=== PATIENT | female | born 1965 | race Two or more races ===

== ENCOUNTER 2018-06-03 08:16 | Inpatient (IN) | payer BC, OTHER ==
[~2018-06-03] VITALS: Ht 149.9 cm; Wt 83.0 kg
[~2018-06-03 08:16] MED LIST: AMBIEN5 MG ORAL; CEFEPIME-D1 GM/50 ML IVPB; CLINDAMYCIN HC300 MG ORAL; DUONEB 0.5-3(2.53 ML HHN; GLIPIZIDE5 MG ORAL; HEPARIN SO5000 UNIT2 SUBQ; IBUPROFEN600 MG ORAL; LEVEMIR FL100 UNIT/1 SUBQ; METFORMIN HCL500 M1 ORAL; MIRALAX17 G2 ORAL; MYLANTA30 M1 ORAL; NITROGLYCERIN0.4 MG SL; NOVOLOG100 UNITS1 SUBQ; NS 1000ML IV; PROMETHAZINE-C118 M1 ORAL; RESTORIL15 MG ORAL; SOLU-MEDRO40 MG/1 M1 IV; TRAMADOL HCL50 MG ORAL; TYLENOL EXTRA500 MG ORAL; VANCOMYCIN1 GM/2502 IVPB; VICODIN 5-5001 EACH ORAL; ZANTAC150 MG ORAL; ZOFRAN 4 MG4 MG/2 ML IV
[2018-06-03] MEDS ORDERED: NKM (08:40)
[2018-06-03 08:45] VITALS: BP 152/58
[2018-06-03] MEDS ORDERED: Insulin Human Regular 100units/ml 3ml IV ONE ×2 (08:45→12:30)
[2018-06-03 08:54] LABS: HEMATOCRIT 35.3 % (37.0-47.0); HEMOGLOBIN 11.2 G/DL (12.0-16.0); MEAN CORPUSCULAR VOLUME 92 FL (80-99); PLATELET COUNT 208 K/UL (150-450); RED BLOOD COUNT 3.84 M/UL (4.20-5.40); RED CELL DISTRIBUTION WIDTH 12.7 % (11.6-14.8); WHITE BLOOD COUNT 8.7 K/UL (4.8-10.8)
[2018-06-03 09:02] LABS: APPEARANCE,URINE SLIGHTLY CLOUDY; BILIRUBIN, URINE NEGATIVE (NEGATIVE); COLOR,URINE PALE YELLOW; GLUCOSE, URINE (UA) 4+ (NEGATIVE); KETONES,URINE NEGATIVE (NEGATIVE); LEUKOCYTE ESTERASE ,URINE 1+ (NEGATIVE); NITRITE,URINE NEGATIVE (NEGATIVE); PH,URINE 5 (4.5-8.0); PROTEIN,URINE 3+ (NEGATIVE); UROBILINOGEN,URINE NORMAL MG/DL (0.0-1.0)
[2018-06-03 10:02] LABS: ANION GAP 20 mmol/L (5-15); BLOOD UREA NITROGEN 17 mg/dL (7-18); CALCIUM 8.7 MG/DL (8.5-10.1); CARBON DIOXIDE 13 MMOL/L (21-32); CHLORIDE 91 MMOL/L (98-107); CREATININE 1.6 MG/DL (0.55-1.30); SODIUM 124 MMOL/L (136-145)
[2018-06-03 10:04] LABS: ALANINE AMINOTRANSFERASE 24 U/L (12-78); ALBUMIN 2.6 G/DL (3.4-5.0); ALBUMIN/GLOBULIN RATIO 0.5 (1.0-2.7); ALKALINE PHOSPHATASE 110 U/L (46-116); ASPARTATE AMINO TRANSFERASE 19 U/L (15-37); BILIRUBIN,TOTAL 0.2 MG/DL (0.2-1.0)
--- NOTE | 2018-06-03 10:27 | Emergency Room Report ---
History of Present Illness General Chief Complaint: Dyspnea/Respdistress Source: Patient Present Illness HPI This patient has about two days malaise, nausea, mild loose bm, mild diffuse abd cramping, feels dehydrated, thirsty, frequency. She is compliant with Insulin 40 Lantus in am and 15 tid with meals. However she has not checked accucheck in > one month due to losing machine. There is no fever, no trauma. No vomiting, no dysuria. No cp. Allergies: Coded Allergies: No Known Allergies (Unverified , 05/27/13) Nursing Documentation-[facility] Past Medical History: No History, Except For Hx Cardiac Problems: No Hx Asthma: No Hx Diabetes: Yes Hx Cancer: No Hx Gastrointestinal Problems: No Hx Dialysis: No History Of Psychiatric Problem: No Hx Neurological Problems: No Hx Cerebrovascular Accident: No Hx Seizures: No Review of Systems Constitutional: Reports: no symptoms, see HPI Eye: Reports: no symptoms ENT: Reports: see HPI, other - dry mouth Respiratory: Reports: no symptoms Cardiovascular: Reports: no symptoms Gastrointestinal: Reports: see HPI, abdominal pain, nausea Genitourinary: Reports: frequency Musculoskeletal: Reports: no symptoms Skin: Reports: no symptoms Psychiatric: Reports: no symptoms Neurological: Reports: no symptoms Endocrine: Reports: see HPI, increased thirst, increased urine Hematologic/Lymphatic: Reports: no symptoms Allergic: Reports: no symptoms Physical Exam Vital Signs Date Time Temp Pulse Resp B/P (MAP) Pulse Ox O2 Delivery O2 Flow Rate FiO2 06/03/18 08:36 99.2 149 24 121/67 95 Room Air 99.1 Sp02 EP Interpretation: reviewed, normal General Appearance: normal inspection, well appearing, no apparent distress, alert, GCS 15, non-toxic Head: normocephalic, atraumatic Eyes: bilateral eye normal inspection, bilateral eye PERRL, bilateral eye EOMI ENT: normal ENT inspection, hearing grossly normal, normal pharynx, no angioedema, normal voice, moist mucus membranes Neck: normal inspection, full range of motion, supple, no meningismus, no bony tend Respiratory: normal inspection, lungs clear, normal breath sounds, no rhonchi, no respiratory distress, no retraction, no accessory muscle use, no wheezing, other - tachypneic Cardiovascular #1: normal inspection, regular rate, rhythm, no edema Gastrointestinal: normal inspection, normal bowel sounds, non tender, soft, no mass, non-distended Musculoskeletal: gait/station normal, normal range of motion Neurologic: normal inspection, alert, oriented x3, responsive, motor strength/ tone normal Psychiatric: normal inspection, judgement/insight normal, memory normal Suicide Risk Assessment: Suicidal Ideation: No Had intent to initiate attempt: No Pt's plan for suicide attempt: No Has means to complete attempt: No Skin: normal inspection, normal color, no rash, warm/dry Medical Decision Making Diagnostic Impression: Primary Impression: Hyperglycemia Additional Impression: Diabetes ER Course initial evaluation clearly hyperglycemic, dry mouth, tachpneic. 10 am re-evaluation: pt. did not want to be admitted. she is hyperglycemic but negative ketones. agreed to stay in ed for a few hours. will continue to give IV fluids aggressively and repeat insulin as long as patient is here. advised to see pmd estuardo. EKG Diagnostic Results EKG Time: 08:27 Rate: tachycardiac ST Segments: no acute changes Other Impression sinus tachy, no acute ischemia, normal intervals Rhythm Strip Diag. Results Rhythm Strip Time: 10:21 EP Interpretation: yes Rate: 111 Rhythm: NSR Other Impression sinus tachy 111 Reevaluation Time: 10:26 tachypneic 20, wants to go Last Vital Signs Date Time Temp Pulse Resp B/P (MAP) Pulse Ox O2 Delivery O2 Flow Rate FiO2 06/03/18 08:45 127 23 Room Air 06/03/18 08:45 99.3 152/58 100 99.3 Status: improved Disposition: HOME, SELF-CARE Condition: Improved Referrals: NOT CHOSEN IPA/MD,REFERRING (PCP) Patient Instructions: Dehydration, Adult, [id number], Hyperglycemia, Easy-to- Read Varghese Kwan M.D. Jun 03, 2018 10:27
[2018-06-03 10:30] VITALS: BP 131/71
[2018-06-03] MEDS ORDERED: Mylanta II UD 30ml ORAL PRN (13:45)
[2018-06-03] MEDS ORDERED: Ketorolac 30mg Inj IV PRN (13:45)
[2018-06-03] MEDS ORDERED: Morphine Sulfate 2mg/ml Inj(IV/IM USE ONLY) IVP PRN (13:45)
[2018-06-03] MEDS ORDERED: Albuterol/Ipratropium 3ml neb HHN PRN (13:45)
[2018-06-03] MEDS ORDERED: Nitroglycerin Subl 0.4mg tab SL PRN (13:45)
[2018-06-03] MEDS ORDERED: Miralax 17gm pkt ORAL PRN (13:45)
[2018-06-03 14:02] VITALS: BP 135/57
[2018-06-03] MEDS ORDERED: Zolpidem 5mg tab ORAL PRN (14:30)
--- NOTE | 2018-06-03 14:59 | Consultation ---
History of Present Illness General Date patient seen: Jun 03, 2018 Chief Complaint: Dyspnea/Respdistress Reason for Consultation: Abdominal cramps and loose stool r/o infection Present Illness HPI Ms Ramos is a 53 yo female with PMHx of DM who presented with hyperglycemia, increased thirst and frequency and abdominal crapts. She is afebrile with no leukocytopsis. She has been on insulin but not checking her blood sugars for the last month. She says that she has has loose watery stool for about 3 days. ( 3 per day). Had one this morning but none since. No sick contact or new foods. BM not bloody. She has had abdominal cramps but no overt pain. She also reports some chill and maybe fever but did not check temps at home. She denies Dysuria, SOB, CP, Vomiting and Abdominal pain. PMHx/PSHx DM SocHx Former smoker FamHx Not contributory Allergies: Coded Allergies: No Known Allergies (Unverified , 05/27/13) Medication History Scheduled Cefepime Hcl/D5w (Cefepime-Dextrose 1 Gm/50 Ml), 1 GM IVPB EVERY 12 HOURS, ( Reported) Heparin Sod (Porcine) (Heparin Sodium*), 5,000 UNITS SUBQ EVERY 12 HOURS, ( Reported) Ibuprofen* (Motrin*), 600 MG ORAL THREE TIMES A DAY, (Reported) Insulin Aspart (Novolog Flexpen), SUBQ AC+HS, (Reported) Insulin Aspart (Novolog Flexpen), 10 UNITS SUBQ TIAC, (Reported) Insulin Detemir (Levemir Flexpen), 20 UNITS SUBQ HS, (Reported) Ipratropium/Albuterol Sulfate (DuoNeb 0.5-3(2.5)mg/3ml), 3 ML HHN TID, (Reported ) Methylprednisolone Sod Succ/Pf (Solu-Medrol 40 Mg Vial), 40 MG IV DAILY, ( Reported) No Known Medications* (NKM - No Known Medications*), 0 ., (Reported) Ranitidine Hcl* (Zantac*), 150 MG ORAL BEDTIME, (Reported) Vancomycin Hcl/D5w (Vancomycin-D5w 1 G/250 Ml), 1.25 GM IVPB Q12HR, (Reported) [Ns 1000ML], 80 ML IV Q1HR, (Reported) Scheduled PRN Acetaminophen* (Tylenol Extra Strength*), 650 MG ORAL Q4HR PRN for Mild Pain/ Temp > 100.5, (Reported) Al Hydroxide/mg Hydroxide (Mag-Al Liquid), 30 ML ORAL Q6HR PRN for INDIGESTION, (Reported) Codeine/Promethazine Hcl* (Promethazine-Codeine Syrup*), 5 ML ORAL Q6H PRN for For Cough, (Reported) Ipratropium/Albuterol Sulfate (DuoNeb 0.5-3(2.5)mg/3ml), 3 ML HHN Q4HR PRN for Shortness of Breath, (Reported) Ondansetron* (Zofran*), 4 MG IV Q6H PRN for Nausea & Vomiting, (Reported) Polyethylene Glycol 3350* (Miralax*), 17 GM ORAL DAILY PRN for Constipation, ( Reported) Temazepam* (Restoril*), 15 MG ORAL BEDTIME PRN for Insomnia, (Reported) Tramadol Hcl* (Ultram*), 50 MG ORAL Q8HR PRN for For Pain Zolpidem Tartrate* (Ambien*), 5 MG ORAL BEDTIME PRN for Insomnia, (Reported) Miscellaneous Medications Nitroglycerin (Nitroglycerin), 0.4 MG SL, (Reported) Patient History Healthcare decision maker Resuscitation status Full Code Advanced Directive on File Review of Systems All Other Systems: negative except mentioned in HPI Physical Exam Last 24 Hour Vital Signs Date Time Temp Pulse Resp B/P (MAP) Pulse Ox O2 Delivery O2 Flow Rate FiO2 06/03/18 14:04 Room Air 06/03/18 14:02 97.9 113 20 135/57 (83) 98 97.9 06/03/18 13:28 98.4 106 20 115/67 100 Room Air 98.3 06/03/18 10:30 98.3 106 20 131/71 100 Room Air 98.3 06/03/18 08:45 127 23 Room Air 06/03/18 08:45 99.3 127 23 152/58 100 Room Air 99.3 06/03/18 08:36 99.2 149 24 121/67 95 Room Air 99.1 Laboratory Tests Test 06/03/18 08:46 06/03/18 08:54 White Blood Count 8.7 K/UL (4.8-10.8) Red Blood Count 3.84 M/UL (4.20-5.40) L Hemoglobin 11.2 G/DL (12.0-16.0) L Hematocrit 35.3 % (37.0-47.0) L Mean Corpuscular Volume 92 FL (80-99) Mean Corpuscular Hemoglobin 29.1 PG (27.0-31.0) Mean Corpuscular Hemoglobin Concent 31.8 G/DL (32.0-36.0) L Red Cell Distribution Width 12.7 % (11.6-14.8) Platelet Count 208 K/UL (150-450) Mean Platelet Volume 7.8 FL (6.5-10.1) Neutrophils (%) (Auto) % (45.0-75.0) Lymphocytes (%) (Auto) % (20.0-45.0) Monocytes (%) (Auto) % (1.0-10.0) Eosinophils (%) (Auto) % (0.0-3.0) Basophils (%) (Auto) % (0.0-2.0) Differential Total Cells Counted 100 Neutrophils % (Manual) 79 % (45-75) H Lymphocytes % (Manual) 5 % (20-45) L Monocytes % (Manual) 5 % (1-10) Eosinophils % (Manual) 0 % (0-3) Basophils % (Manual) 0 % (0-2) Band Neutrophils 11 % (0-8) H Platelet Estimate Adequate Platelet Morphology Normal Red Blood Cell Morphology Normal Sodium Level 124 MMOL/L (136-145) L Potassium Level 4.0 MMOL/L (3.5-5.1) Chloride Level 91 MMOL/L (98-107) L Carbon Dioxide Level 13 MMOL/L (21-32) L Anion Gap 20 mmol/L (5-15) H Blood Urea Nitrogen 17 mg/dL (7-18) Creatinine 1.6 MG/DL (0.55-1.30) H Estimat Glomerular Filtration Rate 34.0 mL/min (>60) Glucose Level 867 MG/DL (74-106) *H Calcium Level 8.7 MG/DL (8.5-10.1) Magnesium Level 1.6 MG/DL (1.8-2.4) L Total Bilirubin 0.2 MG/DL (0.2-1.0) Aspartate Amino Transf (AST/SGOT) 19 U/L (15-37) Alanine Aminotransferase (ALT/SGPT) 24 U/L (12-78) Alkaline Phosphatase 110 U/L (46-116) Total Protein 7.6 G/DL (6.4-8.2) Albumin 2.6 G/DL (3.4-5.0) L Globulin 5.0 g/dL Albumin/Globulin Ratio 0.5 (1.0-2.7) L Acetone Level Negative (NEGATIVE) Urine Color Pale yellow Urine Appearance Slightly cloudy Urine pH 5 (4.5-8.0) Urine Specific [place] 1.005 (1.005-1.035) Urine Protein 3+ (NEGATIVE) H Urine Glucose (UA) 4+ (NEGATIVE) H Urine Ketones Negative (NEGATIVE) Urine Occult Blood 2+ (NEGATIVE) H Urine Nitrite Negative (NEGATIVE) Urine Bilirubin Negative (NEGATIVE) Urine Urobilinogen Normal MG/DL (0.0-1.0) Urine Leukocyte Esterase 1+ (NEGATIVE) H Urine RBC 5-10 /HPF (0 - 2) H Urine WBC 5-10 /HPF (0 - 2) H Urine Squamous Epithelial Cells Few /LPF (NONE/OCC) Urine Bacteria Few /HPF (NONE) Urine Yeast Moderate /HPF (NONE) H Height (Feet): 4 Height (Inches): 11.00 Weight (Pounds): 189 Medications Current Medications Medications (Trade) Dose Ordered Sig/Juan Route PRN Reason Start Time Stop Time Status Last Admin Dose Admin Acetaminophen (Tylenol) 650 mg Q4H PRN ORAL fever 06/03/18 13:45 07/03/18 13:44 Al Hydroxide/Mg Hydroxide (Mylanta II) 30 ml Q6H PRN ORAL dyspepsia 06/03/18 13:45 07/03/18 13:44 Albuterol/ Ipratropium (Albuterol/ Ipratropium) 3 ml EVERY 4 HOURS PRN HHN Shortness of Breath 06/03/18 13:45 06/08/18 13:44 Clonidine HCl (Catapres Tab) 0.1 mg EVERY 4 HOURS PRN ORAL sbp more than 160 06/03/18 13:45 07/03/18 13:44 Dextrose (Dextrose 50%) 25 ml STAT PRN IV Hypoglycemia 06/03/18 13:45 07/03/18 13:44 Dextrose (Dextrose 50%) 50 ml STAT PRN IV Hypoglycemia 06/03/18 13:45 07/03/18 13:44 Heparin Sodium (Porcine) (Heparin 5000 units/ml) 5,000 units EVERY 12 HOURS SUBQ 06/03/18 21:00 07/03/18 20:59 Insulin Aspart (NovoLOG) BEFORE MEALS AND HS SUBQ 06/03/18 16:30 07/03/18 16:29 Ketorolac Tromethamine (Toradol 30mg) 30 mg EVERY 6 HOURS PRN IV moderate pain 4-6 06/03/18 13:45 06/08/18 13:44 Morphine Sulfate (Morphine Sulfate) 2 mg EVERY 4 HOURS PRN IVP severe pain 7-10 06/03/18 13:45 06/10/18 13:44 Nitroglycerin (Ntg) 0.4 mg Q5M X 3 DOSES PRN SL Prn Chest Pain 06/03/18 13:45 07/03/18 13:44 Ondansetron HCl (Zofran) 4 mg Q6H PRN IVP Nausea & Vomiting 06/03/18 13:45 07/03/18 13:44 Polyethylene Glycol (Miralax) 17 gm HSPRN PRN ORAL Constipation 06/03/18 13:45 07/03/18 13:44 Sodium Chloride 1,000 ml @ 100 mls/hr Q10H IVLG 06/03/18 14:05 07/03/18 14:04 06/03/18 14:39 Temazepam (Restoril) 15 mg HSPRN PRN ORAL Insomnia 06/03/18 13:45 06/10/18 13:44 Zolpidem Tartrate (Ambien) 5 mg HSPRN PRN ORAL Insomnia 06/03/18 14:30 06/10/18 14:29 Objective Narrative Gen: NAD, well appearing, alert HEENT: NCAT, MMM, EOMI, PERRL, No Oral lesion, no scleral icterus NECK: full range of motion, supple, no meningismus, No LAD, No JVD LUNGS: CTAB, No W/C, No Accessory muscle use CARDS: RRR, S1, S2, No M/R/G, ABD: Soft, NT, ND, No R/G, + BS, No HSM, No Masses : Deferred Ext: C/C/E, Pulses 2+ B/L (DP, Rad): NEURO: A/O x 4, Strength and Sensation Grossly intact PSYCH: mood/affect normal SKIN: warm/dry, No rashes, Assessment/Plan Assessment/Plan Ms Ramos is a 53 yo female with PMHx of DM who presented with hyperglycemia, increased thirst and frequency and abdominal cramps. # Loose stool and Abdominal Cramps - Likely related to hyperglycemia or vial infection. - No sign of bacterial etiology at this time - Afebrile, no leukocytosis, UA neg - If develops fever or leukocytosis will do further work up - Monitor off abx #DM PLAN - Monitor off antibiotics - BS control - Monitor CBC and Temps Thank you for consulting us for the care of this patient. We will continue to follow with you. Roberth Boucher M.D. Jun 03, 2018 14:59
--- NOTE | 2018-06-03 15:47 | Cardiology Report ---
APPROVED REPORT EKG Measurement Heart [id number] Sinus tachycardia Biatrial enlargement Abnormal ECG
[2018-06-03] MEDS ORDERED: NovoLOG Insulin Flexpen SUBQ SCH (16:30)
--- NOTE | 2018-06-03 16:41 | Consultation ---
History of Present Illness General Date patient seen: Jun 03, 2018 Chief Complaint: Dyspnea/Respdistress Reason for Consultation: Abdominal cramps and loose stool r/o infection Present Illness HPI 53 year old female with hx of diabetes presented to ER with CC of two days of malaise, nausea, mild loose bm, mild diffuse abd cramping, feels dehydrated, thirsty, frequency. She has not checked accucheck in > one month due to losing machine. There is no fever, no trauma. No vomiting, no dysuria. No cp. she was found to have BS more than 180 and admitted to telemetry for further management. Allergies: Coded Allergies: No Known Allergies (Unverified , 05/27/13) Medication History Scheduled Cefepime Hcl/D5w (Cefepime-Dextrose 1 Gm/50 Ml), 1 GM IVPB EVERY 12 HOURS, ( Reported) Heparin Sod (Porcine) (Heparin Sodium*), 5,000 UNITS SUBQ EVERY 12 HOURS, ( Reported) Ibuprofen* (Motrin*), 600 MG ORAL THREE TIMES A DAY, (Reported) Insulin Aspart (Novolog Flexpen), SUBQ AC+HS, (Reported) Insulin Aspart (Novolog Flexpen), 10 UNITS SUBQ TIAC, (Reported) Insulin Detemir (Levemir Flexpen), 20 UNITS SUBQ HS, (Reported) Ipratropium/Albuterol Sulfate (DuoNeb 0.5-3(2.5)mg/3ml), 3 ML HHN TID, (Reported ) Methylprednisolone Sod Succ/Pf (Solu-Medrol 40 Mg Vial), 40 MG IV DAILY, ( Reported) No Known Medications* (NKM - No Known Medications*), 0 ., (Reported) Ranitidine Hcl* (Zantac*), 150 MG ORAL BEDTIME, (Reported) Vancomycin Hcl/D5w (Vancomycin-D5w 1 G/250 Ml), 1.25 GM IVPB Q12HR, (Reported) [Ns 1000ML], 80 ML IV Q1HR, (Reported) Scheduled PRN Acetaminophen* (Tylenol Extra Strength*), 650 MG ORAL Q4HR PRN for Mild Pain/ Temp > 100.5, (Reported) Al Hydroxide/mg Hydroxide (Mag-Al Liquid), 30 ML ORAL Q6HR PRN for INDIGESTION, (Reported) Codeine/Promethazine Hcl* (Promethazine-Codeine Syrup*), 5 ML ORAL Q6H PRN for For Cough, (Reported) Ipratropium/Albuterol Sulfate (DuoNeb 0.5-3(2.5)mg/3ml), 3 ML HHN Q4HR PRN for Shortness of Breath, (Reported) Ondansetron* (Zofran*), 4 MG IV Q6H PRN for Nausea & Vomiting, (Reported) Polyethylene Glycol 3350* (Miralax*), 17 GM ORAL DAILY PRN for Constipation, ( Reported) Temazepam* (Restoril*), 15 MG ORAL BEDTIME PRN for Insomnia, (Reported) Tramadol Hcl* (Ultram*), 50 MG ORAL Q8HR PRN for For Pain Zolpidem Tartrate* (Ambien*), 5 MG ORAL BEDTIME PRN for Insomnia, (Reported) Miscellaneous Medications Nitroglycerin (Nitroglycerin), 0.4 MG SL, (Reported) Patient History Healthcare decision maker Resuscitation status Full Code Advanced Directive on File Past Medical/Surgical History Past Medical/Surgical History: (1) Diabetes Review of Systems All Other Systems: negative except mentioned in HPI Physical Exam General Appearance: WD/WN HEENT: normocephalic Neck: non-tender, normal alignment Respiratory/Chest: chest wall non-tender, lungs clear Breasts: no masses Cardiovascular/Chest: normal peripheral pulses Abdomen: normal bowel sounds Genitourinary/Rectal: normal genital exam Skin Exam: normal pigmentation 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 Last 24 Hour Vital Signs Date Time Temp Pulse Resp B/P (MAP) Pulse Ox O2 Delivery O2 Flow Rate FiO2 06/03/18 15:50 98.7 06/03/18 14:51 100.6 06/03/18 14:04 Room Air 06/03/18 14:02 97.9 113 20 135/57 (83) 98 97.9 06/03/18 13:28 98.4 106 20 115/67 100 Room Air 98.3 06/03/18 10:30 98.3 106 20 131/71 100 Room Air 98.3 06/03/18 08:45 127 23 Room Air 06/03/18 08:45 99.3 127 23 152/58 100 Room Air 99.3 06/03/18 08:36 99.2 149 24 121/67 95 Room Air 99.1 Laboratory Tests Test 06/03/18 08:46 06/03/18 08:54 White Blood Count 8.7 K/UL (4.8-10.8) Red Blood Count 3.84 M/UL (4.20-5.40) L Hemoglobin 11.2 G/DL (12.0-16.0) L Hematocrit 35.3 % (37.0-47.0) L Mean Corpuscular Volume 92 FL (80-99) Mean Corpuscular Hemoglobin 29.1 PG (27.0-31.0) Mean Corpuscular Hemoglobin Concent 31.8 G/DL (32.0-36.0) L Red Cell Distribution Width 12.7 % (11.6-14.8) Platelet Count 208 K/UL (150-450) Mean Platelet Volume 7.8 FL (6.5-10.1) Neutrophils (%) (Auto) % (45.0-75.0) Lymphocytes (%) (Auto) % (20.0-45.0) Monocytes (%) (Auto) % (1.0-10.0) Eosinophils (%) (Auto) % (0.0-3.0) Basophils (%) (Auto) % (0.0-2.0) Differential Total Cells Counted 100 Neutrophils % (Manual) 79 % (45-75) H Lymphocytes % (Manual) 5 % (20-45) L Monocytes % (Manual) 5 % (1-10) Eosinophils % (Manual) 0 % (0-3) Basophils % (Manual) 0 % (0-2) Band Neutrophils 11 % (0-8) H Platelet Estimate Adequate Platelet Morphology Normal Red Blood Cell Morphology Normal Sodium Level 124 MMOL/L (136-145) L Potassium Level 4.0 MMOL/L (3.5-5.1) Chloride Level 91 MMOL/L (98-107) L Carbon Dioxide Level 13 MMOL/L (21-32) L Anion Gap 20 mmol/L (5-15) H Blood Urea Nitrogen 17 mg/dL (7-18) Creatinine 1.6 MG/DL (0.55-1.30) H Estimat Glomerular Filtration Rate 34.0 mL/min (>60) Glucose Level 867 MG/DL (74-106) *H Calcium Level 8.7 MG/DL (8.5-10.1) Magnesium Level 1.6 MG/DL (1.8-2.4) L Total Bilirubin 0.2 MG/DL (0.2-1.0) Aspartate Amino Transf (AST/SGOT) 19 U/L (15-37) Alanine Aminotransferase (ALT/SGPT) 24 U/L (12-78) Alkaline Phosphatase 110 U/L (46-116) Total Protein 7.6 G/DL (6.4-8.2) Albumin 2.6 G/DL (3.4-5.0) L Globulin 5.0 g/dL Albumin/Globulin Ratio 0.5 (1.0-2.7) L Acetone Level Negative (NEGATIVE) Urine Color Pale yellow Urine Appearance Slightly cloudy Urine pH 5 (4.5-8.0) Urine Specific [place] 1.005 (1.005-1.035) Urine Protein 3+ (NEGATIVE) H Urine Glucose (UA) 4+ (NEGATIVE) H Urine Ketones Negative (NEGATIVE) Urine Occult Blood 2+ (NEGATIVE) H Urine Nitrite Negative (NEGATIVE) Urine Bilirubin Negative (NEGATIVE) Urine Urobilinogen Normal MG/DL (0.0-1.0) Urine Leukocyte Esterase 1+ (NEGATIVE) H Urine RBC 5-10 /HPF (0 - 2) H Urine WBC 5-10 /HPF (0 - 2) H Urine Squamous Epithelial Cells Few /LPF (NONE/OCC) Urine Bacteria Few /HPF (NONE) Urine Yeast Moderate /HPF (NONE) H Height (Feet): 4 Height (Inches): 11.00 Weight (Pounds): 189 Medications Current Medications Medications (Trade) Dose Ordered Sig/Juan Route PRN Reason Start Time Stop Time Status Last Admin Dose Admin Acetaminophen (Tylenol) 650 mg Q4H PRN ORAL fever 06/03/18 13:45 07/03/18 13:44 06/03/18 14:51 Al Hydroxide/Mg Hydroxide (Mylanta II) 30 ml Q6H PRN ORAL dyspepsia 06/03/18 13:45 07/03/18 13:44 Albuterol/ Ipratropium (Albuterol/ Ipratropium) 3 ml EVERY 4 HOURS PRN HHN Shortness of Breath 06/03/18 13:45 06/08/18 13:44 Clonidine HCl (Catapres Tab) 0.1 mg EVERY 4 HOURS PRN ORAL sbp more than 160 06/03/18 13:45 07/03/18 13:44 Dextrose (Dextrose 50%) 25 ml STAT PRN IV Hypoglycemia 06/03/18 13:45 07/03/18 13:44 Dextrose (Dextrose 50%) 50 ml STAT PRN IV Hypoglycemia 06/03/18 13:45 07/03/18 13:44 Heparin Sodium (Porcine) (Heparin 5000 units/ml) 5,000 units EVERY 12 HOURS SUBQ 06/03/18 21:00 07/03/18 20:59 Insulin Aspart (NovoLOG) BEFORE MEALS AND HS SUBQ 06/03/18 16:30 07/03/18 16:29 Ketorolac Tromethamine (Toradol 30mg) 30 mg EVERY 6 HOURS PRN IV moderate pain 4-6 06/03/18 13:45 06/08/18 13:44 Morphine Sulfate (Morphine Sulfate) 2 mg EVERY 4 HOURS PRN IVP severe pain 7-10 06/03/18 13:45 06/10/18 13:44 Nitroglycerin (Ntg) 0.4 mg Q5M X 3 DOSES PRN SL Prn Chest Pain 06/03/18 13:45 07/03/18 13:44 Ondansetron HCl (Zofran) 4 mg Q6H PRN IVP Nausea & Vomiting 06/03/18 13:45 07/03/18 13:44 Polyethylene Glycol (Miralax) 17 gm HSPRN PRN ORAL Constipation 06/03/18 13:45 07/03/18 13:44 Sodium Chloride 1,000 ml @ 100 mls/hr Q10H IVLG 06/03/18 14:05 07/03/18 14:04 06/03/18 14:39 Zolpidem Tartrate (Ambien) 5 mg HSPRN PRN ORAL Insomnia 06/03/18 14:30 06/10/18 14:29 Assessment/Plan Problem List: (1) Hyperglycemia ICD Codes: R73.9 - Hyperglycemia, unspecified SNOMED: 01352582 (2) Diabetes ICD Codes: E11.9 - Type 2 diabetes mellitus without complications SNOMED: 78488625 Assessment/Plan iv fluids sliding scale check electrolytes dvr prophylaxis symptomatic treatment Barb Prasad MD Jun 03, 2018 16:41
[2018-06-03 20:00] VITALS: BP 117/52
[2018-06-03] MEDS: Heparin 5000 units/ml inj SUBQ SCH (20:45)
[2018-06-03] MEDS: Levemir Flexpen SUBQ SCH (20:45)
--- NOTE | 2018-06-03 20:45 | History and Physical Report ---
DATE OF ADMISSION: 06/03/2018 TIME SEEN: At 2 p.m. ATTENDING PHYSICIAN: Yg Bhakta D.O. CONSULTANTS: 1. Barb Prasad M.D. 2. Mejia Trinh M.D. CHIEF COMPLAINT: Fever, chills, weakness, diabetes, hyperglycemia. BRIEF HISTORY: This is a 53-year-old female, who lives at home with history of diabetes and apparently ran out of insurance about a month ago, stopped taking her medications. Two days ago, she had some fevers, chills, and weakness and came to [facility] today, was diagnosed with diabetes and hyperglycemia, and admitted to telemetry for further care. Currently, calm in bed, feeling better. No chest pain. No shortness of breath. No nausea, vomiting, or diarrhea. PAST MEDICAL HISTORY: Include diabetes. PAST SURGICAL HISTORY: . ALLERGIES: Denies. MEDICATIONS: Include heparin, insulin, zolpidem, morphine, polyethylene glycol, Zofran, nitroglycerin, ketorolac, insulin. SOCIAL HISTORY: Positive smoking. No alcohol. No intravenous drug abuse. FAMILY HISTORY: Noncontributory. PHYSICAL EXAMINATION: GENERAL: Calm in bed, oriented x3, in no acute distress. VITAL SIGNS: Temperature 97, pulse 113, respirations 20, blood pressure 135/57. CARDIOVASCULAR: No murmur. LUNGS: Distant and clear. ABDOMEN: Positive bowel sounds. Nontender. Nondistended. EXTREMITIES: No cyanosis or edema. NEUROLOGIC: Cranial nerves II through XII are grossly intact. Deep tendon reflexes 2+/4. Muscle strength 5/5. LABORATORY DATA: Laboratories at this time show hemoglobin 11.2, otherwise CBC is normal. BMP shows sodium 127, chloride 91, CO2 13, BUN and creatinine 17/1.6, glucose 867. Urine-tox is acetone negative. Urinalysis, 1+ leukocyte esterase. ASSESSMENT: Diabetes, hyperglycemia, UTI, tachycardia, renal insufficiency, anemia, hyponatremia. PLAN: Continue previous medications. Blood pressure, blood sugar, and pain control. Dietary followup. IV fluids. Antibiotics per Infectious Disease. CBC and BMP in the morning. Yg Bhakta D.O. DR: Eduard JOB#: [id number] CC:
[2018-06-03] MEDS: NovoLOG Insulin Flexpen SUBQ SCH (20:50)
[2018-06-04] VITALS: BP 131/72
[2018-06-04 04:00] VITALS: BP 125/73
[2018-06-04 05:21] LABS: BASOPHILS % (AUTO) 0.7 % (0.0-2.0); EOSINOPHILS % (AUTO) 0.4 % (0.0-3.0); HEMATOCRIT 28.3 % (37.0-47.0); HEMOGLOBIN 9.8 G/DL (12.0-16.0); LYMPHOCYTES % (AUTO) 11.5 % (20.0-45.0); MEAN CORPUSCULAR VOLUME 86 FL (80-99); MONOCYTES % (AUTO) 12.5 % (1.0-10.0); NEUTROPHILS % (AUTO) 74.9 % (45.0-75.0); PLATELET COUNT 176 K/UL (150-450); RED BLOOD COUNT 3.28 M/UL (4.20-5.40); WHITE BLOOD COUNT 6.9 K/UL (4.8-10.8)
[2018-06-04 05:47] LABS: ALANINE AMINOTRANSFERASE 25 U/L (12-78); ALBUMIN 2.1 G/DL (3.4-5.0); ALBUMIN/GLOBULIN RATIO 0.5 (1.0-2.7); ALKALINE PHOSPHATASE 104 U/L (46-116); ANION GAP 10 mmol/L (5-15); ASPARTATE AMINO TRANSFERASE 27 U/L (15-37); BILIRUBIN,TOTAL 0.1 MG/DL (0.2-1.0); BLOOD UREA NITROGEN 14 mg/dL (7-18); CALCIUM 7.9 MG/DL (8.5-10.1); CARBON DIOXIDE 20 MMOL/L (21-32); CHLORIDE 103 MMOL/L (98-107); CREATININE 0.7 MG/DL (0.55-1.30); HDL CHOLESTEROL 17 MG/DL (40-60); SODIUM 133 MMOL/L (136-145); TRIGLYCERIDES 494 MG/DL (30-150)
[2018-06-04] MEDS: NovoLOG Insulin Flexpen SUBQ SCH ×5 (06:01→21:46)
[2018-06-04 07:57] LABS: CHOLESTEROL 177 MG/DL (< 200)
[2018-06-04] MEDS: Heparin 5000 units/ml inj SUBQ SCH ×2 (08:14→21:45)
[2018-06-04] MEDS: Levemir Flexpen SUBQ SCH ×2 (08:15→21:45)
--- NOTE | 2018-06-04 08:29 | General Progress Note ---
Progress Note Progress Note [id number] full consult dictated Karma Painter MD Jun 04, 2018 08:29
[2018-06-04 08:50] VITALS: BP 121/74
[2018-06-04 10:12] LABS: APPEARANCE,URINE CLOUDY; BILIRUBIN, URINE NEGATIVE (NEGATIVE); COLOR,URINE PALE YELLOW; GLUCOSE, URINE (UA) 4+ (NEGATIVE); KETONES,URINE 1+ (NEGATIVE); LEUKOCYTE ESTERASE ,URINE 3+ (NEGATIVE); NITRITE,URINE POSITIVE (NEGATIVE); PH,URINE 6 (4.5-8.0); PROTEIN,URINE 3+ (NEGATIVE); UROBILINOGEN,URINE NORMAL MG/DL (0.0-1.0)
--- NOTE | 2018-06-04 10:21 | Infectious Diseases Prog Note ---
Assessment/Plan Assessment/Plan Assessment/Plan Ms Ramos is a 53 yo female with PMHx of DM who presented with hyperglycemia, increased thirst and frequency and abdominal cramps. # Loose stool and Abdominal Cramps - Likely related to hyperglycemia or viral infection. - r/o bacterial GE, cdiff, acute HIV, r/o bacteremia - no leukocytosis, UA mild pyuria, no UTI symptoms #Fever #DM/Mild DKA upon presentation PLAN -Bcx x2, stool cx, Cdiff, CXR - Monitor off antibiotics - BS control - Monitor CBC and Temps -HIV ab sc and VL Thank you for consulting us for the care of this patient. We will continue to follow with you. Subjective Allergies: Coded Allergies: No Known Allergies (Unverified , 05/27/13) Subjective Tm 101.1 no leukocytosis last diarrhea yesterday Objective Vital Signs Last 24 Hour Vital Signs Date Time Temp Pulse Resp B/P (MAP) Pulse Ox O2 Delivery O2 Flow Rate FiO2 06/04/18 08:50 100.0 105 20 121/74 (90) 98 100.0 06/04/18 07:31 99 06/04/18 07:12 Room Air 06/04/18 06:59 98.8 06/04/18 06:00 101.1 06/04/18 04:00 99 06/04/18 04:00 99.0 99 20 125/73 (90) 98 99.0 06/04/18 00:00 98.2 99 20 131/72 (91) 98 98.2 06/04/18 00:00 97 06/03/18 21:00 Room Air 06/03/18 20:00 98.5 99 20 117/52 (73) 98 98.5 06/03/18 20:00 98 06/03/18 19:55 102 18 Room Air 06/03/18 18:05 98.7 06/03/18 16:00 101 06/03/18 14:51 100.6 06/03/18 14:04 Room Air 06/03/18 14:02 97.9 113 20 135/57 (83) 98 97.9 06/03/18 13:28 98.4 106 20 115/67 100 Room Air 98.3 06/03/18 10:30 98.3 106 20 131/71 100 Room Air 98.3 Height (Feet): 4 Height (Inches): 11.00 Weight (Pounds): 189 Objective Gen: NAD, well appearing, alert HEENT: NCAT, MMM, EOMI, PERRL, No Oral lesion, no scleral icterus NECK: full range of motion, supple, no meningismus, No LAD, No JVD LUNGS: CTAB, No W/C, No Accessory muscle use CARDS: RRR, S1, S2, No M/R/G, ABD: Soft, NT, ND, No R/G, + BS, No HSM, No Masses : Deferred Ext: C/C/E, Pulses 2+ B/L (DP, Rad): NEURO: A/O x 4, Strength and Sensation Grossly intact PSYCH: mood/affect normal SKIN: warm/dry, No rashes, Laboratory Tests Test 06/04/18 04:50 06/04/18 09:00 White Blood Count 6.9 K/UL (4.8-10.8) Red Blood Count 3.28 M/UL (4.20-5.40) L Hemoglobin 9.8 G/DL (12.0-16.0) L Hematocrit 28.3 % (37.0-47.0) L Mean Corpuscular Volume 86 FL (80-99) Mean Corpuscular Hemoglobin 29.8 PG (27.0-31.0) Mean Corpuscular Hemoglobin Concent 34.4 G/DL (32.0-36.0) Red Cell Distribution Width 12.0 % (11.6-14.8) Platelet Count 176 K/UL (150-450) Mean Platelet Volume 8.7 FL (6.5-10.1) Neutrophils (%) (Auto) 74.9 % (45.0-75.0) Lymphocytes (%) (Auto) 11.5 % (20.0-45.0) L Monocytes (%) (Auto) 12.5 % (1.0-10.0) H Eosinophils (%) (Auto) 0.4 % (0.0-3.0) Basophils (%) (Auto) 0.7 % (0.0-2.0) Sodium Level 133 MMOL/L (136-145) L Potassium Level 4.0 MMOL/L (3.5-5.1) Chloride Level 103 MMOL/L (98-107) Carbon Dioxide Level 20 MMOL/L (21-32) L Anion Gap 10 mmol/L (5-15) Blood Urea Nitrogen 14 mg/dL (7-18) Creatinine 0.7 MG/DL (0.55-1.30) # Estimat Glomerular Filtration Rate > 60 mL/min (>60) Glucose Level 288 MG/DL (74-106) #H Hemoglobin A1c 13.4 % (4.3-6.0) H Calcium Level 7.9 MG/DL (8.5-10.1) L Total Bilirubin 0.1 MG/DL (0.2-1.0) L Aspartate Amino Transf (AST/SGOT) 27 U/L (15-37) Alanine Aminotransferase (ALT/SGPT) 25 U/L (12-78) Alkaline Phosphatase 104 U/L (46-116) Total Protein 6.4 G/DL (6.4-8.2) Albumin 2.1 G/DL (3.4-5.0) L Globulin 4.3 g/dL Albumin/Globulin Ratio 0.5 (1.0-2.7) L Triglycerides Level 494 MG/DL (30-150) H Cholesterol Level 177 MG/DL (< 200) LDL Cholesterol 82 mg/dL (<100) HDL Cholesterol 17 MG/DL (40-60) L Cholesterol/HDL Ratio 10.4 (3.3-4.4) H Thyroid Stimulating Hormone (TSH) 1.133 uiU/mL (0.358-3.740) Urine Color Pending Urine Appearance Pending Urine pH Pending Urine Specific [place] Pending Urine Protein Pending Urine Glucose (UA) Pending Urine Ketones Pending Urine Occult Blood Pending Urine Nitrite Pending Urine Bilirubin Pending Urine Urobilinogen Pending Urine Leukocyte Esterase Pending Urine RBC Pending Urine WBC Pending Urine Squamous Epithelial Cells Pending Urine Bacteria Pending Urine Eosinophils Pending Urine Random Creatinine Pending Urine Random Microalbumin Pending Urine Random Total Protein Pending Urine Random Sodium Pending Urine Creatinine Pending Urine Microalbumin/Creatinine Ratio Pending Current Medications Medications (Trade) Dose Ordered Sig/Juan Route PRN Reason Start Time Stop Time Status Last Admin Dose Admin Acetaminophen (Tylenol) 650 mg Q4H PRN ORAL fever 06/03/18 13:45 07/03/18 13:44 06/04/18 06:00 Al Hydroxide/Mg Hydroxide (Mylanta II) 30 ml Q6H PRN ORAL dyspepsia 06/03/18 13:45 07/03/18 13:44 Albuterol/ Ipratropium (Albuterol/ Ipratropium) 3 ml EVERY 4 HOURS PRN HHN Shortness of Breath 06/03/18 13:45 06/08/18 13:44 Clonidine HCl (Catapres Tab) 0.1 mg EVERY 4 HOURS PRN ORAL sbp more than 160 06/03/18 13:45 07/03/18 13:44 Dextrose (Dextrose 50%) 25 ml STAT PRN IV Hypoglycemia 06/03/18 18:30 07/03/18 18:29 Dextrose (Dextrose 50%) 50 ml STAT PRN IV Hypoglycemia 06/03/18 18:30 07/03/18 18:29 Heparin Sodium (Porcine) (Heparin 5000 units/ml) 5,000 units EVERY 12 HOURS SUBQ 06/03/18 21:00 07/03/18 20:59 06/04/18 08:14 Insulin Aspart (NovoLOG) BEFORE MEALS AND HS SUBQ 06/03/18 21:00 07/03/18 20:59 06/04/18 06:01 Insulin Detemir (Levemir) 20 units Q12H SUBQ 06/03/18 21:00 07/03/18 20:59 06/04/18 08:15 Ketorolac Tromethamine (Toradol 30mg) 30 mg EVERY 6 HOURS PRN IV moderate pain 4-6 06/03/18 13:45 06/08/18 13:44 06/03/18 17:29 Morphine Sulfate (Morphine Sulfate) 2 mg EVERY 4 HOURS PRN IVP severe pain 7-10 06/03/18 13:45 06/10/18 13:44 Nitroglycerin (Ntg) 0.4 mg Q5M X 3 DOSES PRN SL Prn Chest Pain 06/03/18 13:45 07/03/18 13:44 Ondansetron HCl (Zofran) 4 mg Q6H PRN IVP Nausea & Vomiting 06/03/18 13:45 07/03/18 13:44 Polyethylene Glycol (Miralax) 17 gm HSPRN PRN ORAL Constipation 06/03/18 13:45 07/03/18 13:44 Sodium Chloride 1,000 ml @ 100 mls/hr Q10H IVLG 06/03/18 14:05 07/03/18 14:04 06/04/18 10:07 Zolpidem Tartrate (Ambien) 5 mg HSPRN PRN ORAL Insomnia 06/03/18 14:30 06/10/18 14:29 06/03/18 20:44 Laura Anguiano M.D. Jun 04, 2018 10:21
[2018-06-04 12:30] VITALS: BP 133/68
--- NOTE | 2018-06-04 13:29 | Pulmonology Progress Note ---
Assessment/Plan Problems: (1) Hyperglycemia (2) Diabetes (3) Fever Assessment/Plan BS better check electrolytes lanza culture ID to see. Subjective ROS Limited/Unobtainable: Yes Constitutional: Reports: no symptoms Respiratory: Reports: no symptoms Allergies: Coded Allergies: No Known Allergies (Unverified , 05/27/13) Objective Last 24 Hour Vital Signs Date Time Temp Pulse Resp B/P (MAP) Pulse Ox O2 Delivery O2 Flow Rate FiO2 06/04/18 12:30 98.4 91 20 133/68 (89) 98 98.4 06/04/18 11:29 90 06/04/18 11:25 100.0 06/04/18 10:31 100.0 06/04/18 08:50 100.0 105 20 121/74 (90) 98 100.0 06/04/18 08:10 91 18 Room Air 06/04/18 07:31 99 06/04/18 07:12 Room Air 06/04/18 06:59 98.8 06/04/18 06:00 101.1 06/04/18 04:00 99 06/04/18 04:00 99.0 99 20 125/73 (90) 98 99.0 06/04/18 00:00 98.2 99 20 131/72 (91) 98 98.2 06/04/18 00:00 97 06/03/18 21:00 Room Air 06/03/18 20:00 98.5 99 20 117/52 (73) 98 98.5 06/03/18 20:00 98 06/03/18 19:55 102 18 Room Air 06/03/18 18:05 98.7 06/03/18 16:00 101 06/03/18 14:51 100.6 06/03/18 14:04 Room Air 06/03/18 14:02 97.9 113 20 135/57 (83) 98 97.9 06/03/18 13:28 98.4 106 20 115/67 100 Room Air 98.3 Intake and Output 06/03/18 06/04/18 19:00 07:00 Intake Total 2000 ml 1193 ml Balance 2000 ml 1193 ml Intake Oral 1000 ml IV Total 1000 ml 1193 ml # Voids 3 General Appearance: WD/WN HEENT: normocephalic, atraumatic Respiratory/Chest: chest wall non-tender, lungs clear Breasts: no masses Cardiovascular: normal peripheral pulses Abdomen: normal bowel sounds, soft, non tender Genitourinary: normal external genitalia Extremities: no clubbing Skin: no rash Microbiology Date/Time Source Procedure Growth Status 06/04/18 00:00 Stool Ordered 06/03/18 08:54 Urine,Clean Catch Urine Culture - Preliminary Gram Negative Bacillus 1 Resulted Laboratory Tests 06/04/18 04:50: White Blood Count 6.9, Red Blood Count 3.28L, Hemoglobin 9.8L, Hematocrit 28.3L , Mean Corpuscular Volume 86, Mean Corpuscular Hemoglobin 29.8, Mean Corpuscular Hemoglobin Concent 34.4, Red Cell Distribution Width 12.0, Platelet Count 176, Mean Platelet Volume 8.7, Neutrophils (%) (Auto) 74.9, Lymphocytes (% ) (Auto) 11.5L, Monocytes (%) (Auto) 12.5H, Eosinophils (%) (Auto) 0.4, Basophils (%) (Auto) 0.7, Sodium Level 133L, Potassium Level 4.0, Chloride Level 103, Carbon Dioxide Level 20L, Anion Gap 10, Blood Urea Nitrogen 14, Creatinine 0.7#, Estimat Glomerular Filtration Rate > 60, Glucose Level 288#H, Hemoglobin A1c 13.4H, Calcium Level 7.9L, Total Bilirubin 0.1L, Aspartate Amino Transf (AST/SGOT) 27, Alanine Aminotransferase (ALT/SGPT) 25, Alkaline Phosphatase 104, Total Protein 6.4, Albumin 2.1L, Globulin 4.3, Albumin/ Globulin Ratio 0.5L, Triglycerides Level 494H, Cholesterol Level 177, LDL Cholesterol 82, HDL Cholesterol 17L, Cholesterol/HDL Ratio 10.4H, Thyroid Stimulating Hormone (TSH) 1.133 06/04/18 09:00: Urine Color Pale yellow, Urine Appearance Cloudy, Urine pH 6, Urine Specific [place] 1.015, Urine Protein 3+H, Urine Glucose (UA) 4+H, Urine Ketones 1+H, Urine Occult Blood 2+H, Urine Nitrite PositiveH, Urine Bilirubin Negative, Urine Urobilinogen Normal, Urine Leukocyte Esterase 3+H, Urine RBC 5-10H, Urine WBC 10-15H, Urine Squamous Epithelial Cells ManyH, Urine Bacteria ManyH, Urine Eosinophils None seen, Urine Random Creatinine [Pending], Urine Random Microalbumin [Pending], Urine Random Total Protein 164H, Urine Random Sodium 39 , Urine Creatinine 157.9H, Urine Microalbumin/Creatinine Ratio [Pending] Current Medications Medications (Trade) Dose Ordered Sig/Juan Route PRN Reason Start Time Stop Time Status Last Admin Dose Admin Acetaminophen (Tylenol) 650 mg Q4H PRN ORAL Mild Pain/Temp > 100.5 06/04/18 10:30 07/03/18 10:29 06/04/18 10:31 Al Hydroxide/Mg Hydroxide (Mylanta II) 30 ml Q6H PRN ORAL dyspepsia 06/03/18 13:45 07/03/18 13:44 Albuterol/ Ipratropium (Albuterol/ Ipratropium) 3 ml EVERY 4 HOURS PRN HHN Shortness of Breath 06/03/18 13:45 06/08/18 13:44 Clonidine HCl (Catapres Tab) 0.1 mg EVERY 4 HOURS PRN ORAL sbp more than 160 06/03/18 13:45 07/03/18 13:44 Dextrose (Dextrose 50%) 25 ml STAT PRN IV Hypoglycemia 06/03/18 18:30 07/03/18 18:29 Dextrose (Dextrose 50%) 50 ml STAT PRN IV Hypoglycemia 06/03/18 18:30 07/03/18 18:29 Heparin Sodium (Porcine) (Heparin 5000 units/ml) 5,000 units EVERY 12 HOURS SUBQ 06/03/18 21:00 07/03/18 20:59 06/04/18 08:14 Insulin Aspart (NovoLOG) BEFORE MEALS AND HS SUBQ 06/03/18 21:00 07/03/18 20:59 06/04/18 11:20 Insulin Detemir (Levemir) 20 units Q12H SUBQ 06/03/18 21:00 07/03/18 20:59 06/04/18 08:15 Ketorolac Tromethamine (Toradol 30mg) 30 mg EVERY 6 HOURS PRN IV moderate pain 4-6 06/03/18 13:45 06/08/18 13:44 06/03/18 17:29 Morphine Sulfate (Morphine Sulfate) 2 mg EVERY 4 HOURS PRN IVP severe pain 7-10 06/03/18 13:45 06/10/18 13:44 Nitroglycerin (Ntg) 0.4 mg Q5M X 3 DOSES PRN SL Prn Chest Pain 06/03/18 13:45 07/03/18 13:44 Ondansetron HCl (Zofran) 4 mg Q6H PRN IVP Nausea & Vomiting 06/03/18 13:45 07/03/18 13:44 Polyethylene Glycol (Miralax) 17 gm HSPRN PRN ORAL Constipation 06/03/18 13:45 07/03/18 13:44 Sodium Chloride 1,000 ml @ 100 mls/hr Q10H IVLG 06/03/18 14:05 07/03/18 14:04 06/04/18 10:07 Zolpidem Tartrate (Ambien) 5 mg HSPRN PRN ORAL Insomnia 06/03/18 14:30 06/10/18 14:29 06/03/18 20:44 Barb Prasad MD Jun 04, 2018 13:29
[2018-06-04] MEDS ORDERED: Morphine Sulfate 2mg/ml Inj(IV/IM USE ONLY) IVP PRN (14:30)
[2018-06-04] MEDS ORDERED: Mylanta II UD 30ml ORAL PRN (14:30)
[2018-06-04] MEDS ORDERED: Nitroglycerin Subl 0.4mg tab SL PRN (14:30)
[2018-06-04] MEDS ORDERED: Zolpidem 5mg tab ORAL PRN (14:30)
[2018-06-04] MEDS ORDERED: Miralax 17gm pkt ORAL PRN (14:30)
[2018-06-04] MEDS ORDERED: Ketorolac 30mg Inj IV PRN (14:30)
--- NOTE | 2018-06-04 14:45 | Consultation ---
DATE OF CONSULTATION: 06/04/2018 NEPHROLOGY CONSULTATION CONSULTING PHYSICIAN: Karma Painter M.D. REFERRING PHYSICIAN: Yg Bhakta D.O. REASON FOR CONSULTATION: Hyponatremia, acute renal failure, and acidosis. 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 She has been off the medication for over the month and has not been checking her sugar for about more than a month, who presented to emergency room complaining of polyuria, polydipsia, and dehydration. She also complained of nausea, vomiting, and multiple episodes of lose stool. She complained of fever and chills and upon arrival in the ER, the patient found to have blood sugar of 800. She found to be acidotic, also have an acute renal failure, and having hyponatremia, which was related to hyperglycemia and consequently, the patient was admitted in the monitored bed. I was called for management of renal disease and electrolyte imbalance. PAST MEDICAL HISTORY: Including, 1. History of hypertension. 2. History of diabetes. MEDICATIONS: Home medications are none. Current mediations are including, 1. Ibuprofen 600 mg p.o. daily. 2. Insulin ____. 3. Methylprednisolone 40 mg daily. 4. Ranitidine 150 mg p.o. daily. 5. Vancomycin 1.25 mg daily. 6. Tylenol 650 mg q.6 h. p.r.n. pain. 7. Milk of magnesium p.r.n. 8. Promethazine for p.r.n. cough. 9. Temazepam 15 mg p.o. daily. 10. Tramadol 50 mg p.o. daily. 11. Ambien 5 mg daily. FAMILY HISTORY: Negative for any history of premature heart disease, diabetes, or hypertension. SOCIAL HISTORY: She works as a registered nurse, lives with two of her daughters, who are in 20s. There is no history of tobacco, alcohol, or drug use. REVIEW OF SYSTEMS: GENERAL: She complained of generalized weakness. Complained of fever and chills. No night sweats. HEAD AND NECK: Denies any dysphagia, odynophagia, blurry vision, headache, or neck stiffness. PULMONARY: Denies any shortness of breath. No cough. No sputum. CARDIOVASCULAR: Denies any chest pain or palpitation. GASTROINTESTINAL: She had nausea, vomiting, and diarrhea. Denies at this point. GENITOURINARY: Denies any dysuria, frequency, or hematuria. MUSCULOSKELETAL: Denies any weakness or numbness. PHYSICAL EXAMINATION: VITAL SIGNS: The patient had temperature of 101, T-max of 101, and current temperature of 98, blood pressure 131/72, pulse rate of 99, and respiratory rate of 18. HEAD AND NECK: No JVP. No LAD. No thyromegaly. Extraocular movement intact. Pupils are reactive to light and accommodation. LUNGS: Clear to auscultation. CARDIAC: Regular rate and rhythm. S1 and S2. No murmur. No rub. ABDOMEN: Soft, nontender, and nondistended. No organomegaly. EXTREMITIES: No edema. No clubbing. No cyanosis. LABORATORY DATA: The patient had sodium of 124, potassium 4, chloride 91, bicarbonate 13, BUN was 17, creatinine 1.6, glucose of 867, calcium of 8.7, and magnesium of 1.6. AST of 19, ALT of 24, and alkaline phosphatase of 110. Albumin of 2.6. CBC revealed WBC count of 8.7, hemoglobin of 11.2, hematocrit of 35, and platelet count of 208. UA revealed specific gravity of 1.005, protein 3+, glucose 3+, wbc 5 to 10, rbc 5 to 10, yeast moderate. ASSESSMENT: 1. Hypovolemic hyponatremia. Hyponatremia is as a result of severe hyperglycemia. 2. Anion gap, unknown anion gap acidosis and non-anion gap acidosis most likely due to diarrhea and anion gap as a result of acute renal failure. 3. Uncontrolled diabetes. 4. Hypocalcemia. 5. Dyslipidemia with HDL of . 6. Proteinuria, rule out diabetic nephropathy, although the patient denies any current history of diabetic neuropathy. PLAN: Plan for the patient to obtain a random urine protein creatinine ratio to calculate the proteinuria. Check the urine sodium and creatinine to calculate fractional excretion of sodium. Check the microalbumin level. Repeat the UA. Controlling the diabetes I spoke to the patient regarding the complication of the diabetes including diabetic nephropathy. I would continue with IV fluid. I would replace the electrolyte. I would check the vitamin D for evaluation of hypocalcemia. Again, I would like to thank, Dr. Yg Bhakta, for allowing me to participate in the care of this patient. Karma Painter M.D. DR: MEGHAN JOB#: [id number] CC:
--- NOTE | 2018-06-04 15:45 | General Progress Note ---
Assessment/Plan Problem List: (1) UTI (urinary tract infection) ICD Codes: N39.0 - Urinary tract infection, site not specified SNOMED: 60645404 (2) Renal insufficiency ICD Codes: N28.9 - Disorder of kidney and ureter, unspecified SNOMED: 143392327, 389803013 (3) Hyponatremia ICD Codes: E87.1 - Hypo-osmolality and hyponatremia SNOMED: 96789236 (4) Diabetes ICD Codes: E11.9 - Type 2 diabetes mellitus without complications SNOMED: 81422653 (5) Hyperglycemia ICD Codes: R73.9 - Hyperglycemia, unspecified SNOMED: 92039071 (6) Fever ICD Codes: R50.9 - Fever, unspecified SNOMED: 183198494 Status: stable, progressing Assessment/Plan abx bs control ot pt diet cbc bmp am Subjective Constitutional: Reports: weakness Allergies: Coded Allergies: No Known Allergies (Unverified , 05/27/13) All Systems: reviewed and negative except above Subjective calm in bed Objective Last 24 Hour Vital Signs Date Time Temp Pulse Resp B/P (MAP) Pulse Ox O2 Delivery O2 Flow Rate FiO2 06/04/18 12:30 98.4 91 20 133/68 (89) 98 98.4 06/04/18 11:29 90 06/04/18 11:25 100.0 06/04/18 10:31 100.0 06/04/18 08:50 100.0 105 20 121/74 (90) 98 100.0 06/04/18 08:10 91 18 Room Air 06/04/18 07:31 99 06/04/18 07:12 Room Air 06/04/18 06:59 98.8 06/04/18 06:00 101.1 06/04/18 04:00 99 06/04/18 04:00 99.0 99 20 125/73 (90) 98 99.0 06/04/18 00:00 98.2 99 20 131/72 (91) 98 98.2 06/04/18 00:00 97 06/03/18 21:00 Room Air 06/03/18 20:00 98.5 99 20 117/52 (73) 98 98.5 06/03/18 20:00 98 06/03/18 19:55 102 18 Room Air 8/15/18 18:05 98.7 06/03/18 16:00 101 Intake and Output 06/03/18 06/04/18 19:00 07:00 Intake Total 2000 ml 1193 ml Balance 2000 ml 1193 ml Intake Oral 1000 ml IV Total 1000 ml 1193 ml # Voids 3 Laboratory Tests 06/04/18 04:50: White Blood Count 6.9, Red Blood Count 3.28L, Hemoglobin 9.8L, Hematocrit 28.3L , Mean Corpuscular Volume 86, Mean Corpuscular Hemoglobin 29.8, Mean Corpuscular Hemoglobin Concent 34.4, Red Cell Distribution Width 12.0, Platelet Count 176, Mean Platelet Volume 8.7, Neutrophils (%) (Auto) 74.9, Lymphocytes (% ) (Auto) 11.5L, Monocytes (%) (Auto) 12.5H, Eosinophils (%) (Auto) 0.4, Basophils (%) (Auto) 0.7, Sodium Level 133L, Potassium Level 4.0, Chloride Level 103, Carbon Dioxide Level 20L, Anion Gap 10, Blood Urea Nitrogen 14, Creatinine 0.7#, Estimat Glomerular Filtration Rate > 60, Glucose Level 288#H, Hemoglobin A1c 13.4H, Calcium Level 7.9L, Total Bilirubin 0.1L, Aspartate Amino Transf (AST/SGOT) 27, Alanine Aminotransferase (ALT/SGPT) 25, Alkaline Phosphatase 104, Total Protein 6.4, Albumin 2.1L, Globulin 4.3, Albumin/ Globulin Ratio 0.5L, Triglycerides Level 494H, Cholesterol Level 177, LDL Cholesterol 82, HDL Cholesterol 17L, Cholesterol/HDL Ratio 10.4H, Thyroid Stimulating Hormone (TSH) 1.133 06/04/18 09:00: Urine Color Pale yellow, Urine Appearance Cloudy, Urine pH 6, Urine Specific [place] 1.015, Urine Protein 3+H, Urine Glucose (UA) 4+H, Urine Ketones 1+H, Urine Occult Blood 2+H, Urine Nitrite PositiveH, Urine Bilirubin Negative, Urine Urobilinogen Normal, Urine Leukocyte Esterase 3+H, Urine RBC 5-10H, Urine WBC 10-15H, Urine Squamous Epithelial Cells ManyH, Urine Bacteria ManyH, Urine Eosinophils None seen, Urine Random Creatinine [Pending], Urine Random Microalbumin [Pending], Urine Random Total Protein 164H, Urine Random Sodium 39 , Urine Creatinine 157.9H, Urine Microalbumin/Creatinine Ratio [Pending] Height (Feet): 4 Height (Inches): 11.00 Weight (Pounds): 189 General Appearance: alert EENT: normal ENT inspection Neck: normal alignment Cardiovascular: normal peripheral pulses, normal rate, regular rhythm Respiratory/Chest: chest wall non-tender, lungs clear, normal breath sounds Abdomen: normal bowel sounds, non tender, soft Extremities: normal inspection Edema: no edema noted Arm (L), no edema noted Arm (R), no edema noted Leg (L), no edema noted Leg (R), no edema noted Pedal (L), no edema noted Pedal (R), no edema noted Generalized Neurologic: responsive, motor weakness Skin: normal pigmentation, warm/dry Yg Bhakta DO Jun 04, 2018 15:45
[2018-06-04 16:00] VITALS: BP 150/70
--- NOTE | 2018-06-04 16:23 | Diagnostic Imaging Report ---
Indication: Cough Technique: One view of the chest Comparison: 09/30/2016 Findings: Lungs and pleural spaces are clear. Heart size is normal Impression: No acute process
[2018-06-04 20:00] VITALS: BP 152/69
[2018-06-05] VITALS (20 sets, daily range): BP systolic 113–160; BP diastolic 57–96
--- NOTE | 2018-06-05 00:36 | Cardiology Progress Note ---
Assessment/Plan Assessment/Plan The patient was seen and examined in June 04 at 7:45pm at [facility] [place], full consult note is dictated. Objective Last 24 Hour Vital Signs Date Time Temp Pulse Resp B/P (MAP) Pulse Ox O2 Delivery O2 Flow Rate FiO2 06/04/18 21:00 Room Air 06/04/18 20:30 101 18 Room Air 06/04/18 20:00 100.2 105 18 152/69 (96) 97 100.2 06/04/18 18:31 99.9 06/04/18 16:49 99.9 06/04/18 16:00 99.9 96 18 150/70 (96) 96 99.9 06/04/18 12:30 98.4 91 20 133/68 (89) 98 98.4 06/04/18 11:29 90 06/04/18 11:25 100.0 06/04/18 10:31 100.0 06/04/18 08:50 100.0 105 20 121/74 (90) 98 100.0 06/04/18 08:10 91 18 Room Air 06/04/18 07:31 99 06/04/18 07:12 Room Air 06/04/18 06:59 98.8 06/04/18 06:00 101.1 06/04/18 04:00 99 06/04/18 04:00 99.0 99 20 125/73 (90) 98 99.0 Intake and Output 06/04/18 06/05/18 19:00 07:00 Intake Total 1610 ml Balance 1610 ml Intake Oral 360 ml IV Total 700 ml Other 550 ml # Voids 6 Laboratory Tests Test 06/04/18 04:50 06/04/18 09:00 White Blood Count 6.9 K/UL (4.8-10.8) Red Blood Count 3.28 M/UL (4.20-5.40) L Hemoglobin 9.8 G/DL (12.0-16.0) L Hematocrit 28.3 % (37.0-47.0) L Mean Corpuscular Volume 86 FL (80-99) Mean Corpuscular Hemoglobin 29.8 PG (27.0-31.0) Mean Corpuscular Hemoglobin Concent 34.4 G/DL (32.0-36.0) Red Cell Distribution Width 12.0 % (11.6-14.8) Platelet Count 176 K/UL (150-450) Mean Platelet Volume 8.7 FL (6.5-10.1) Neutrophils (%) (Auto) 74.9 % (45.0-75.0) Lymphocytes (%) (Auto) 11.5 % (20.0-45.0) L Monocytes (%) (Auto) 12.5 % (1.0-10.0) H Eosinophils (%) (Auto) 0.4 % (0.0-3.0) Basophils (%) (Auto) 0.7 % (0.0-2.0) Sodium Level 133 MMOL/L (136-145) L Potassium Level 4.0 MMOL/L (3.5-5.1) Chloride Level 103 MMOL/L (98-107) Carbon Dioxide Level 20 MMOL/L (21-32) L Anion Gap 10 mmol/L (5-15) Blood Urea Nitrogen 14 mg/dL (7-18) Creatinine 0.7 MG/DL (0.55-1.30) # Estimat Glomerular Filtration Rate > 60 mL/min (>60) Glucose Level 288 MG/DL (74-106) #H Hemoglobin A1c 13.4 % (4.3-6.0) H Calcium Level 7.9 MG/DL (8.5-10.1) L Total Bilirubin 0.1 MG/DL (0.2-1.0) L Aspartate Amino Transf (AST/SGOT) 27 U/L (15-37) Alanine Aminotransferase (ALT/SGPT) 25 U/L (12-78) Alkaline Phosphatase 104 U/L (46-116) Total Protein 6.4 G/DL (6.4-8.2) Albumin 2.1 G/DL (3.4-5.0) L Globulin 4.3 g/dL Albumin/Globulin Ratio 0.5 (1.0-2.7) L Triglycerides Level 494 MG/DL (30-150) H Cholesterol Level 177 MG/DL (< 200) LDL Cholesterol 82 mg/dL (<100) HDL Cholesterol 17 MG/DL (40-60) L Cholesterol/HDL Ratio 10.4 (3.3-4.4) H Thyroid Stimulating Hormone (TSH) 1.133 uiU/mL (0.358-3.740) Urine Color Pale yellow Urine Appearance Cloudy Urine pH 6 (4.5-8.0) Urine Specific [place] 1.015 (1.005-1.035) Urine Protein 3+ (NEGATIVE) H Urine Glucose (UA) 4+ (NEGATIVE) H Urine Ketones 1+ (NEGATIVE) H Urine Occult Blood 2+ (NEGATIVE) H Urine Nitrite Positive (NEGATIVE) H Urine Bilirubin Negative (NEGATIVE) Urine Urobilinogen Normal MG/DL (0.0-1.0) Urine Leukocyte Esterase 3+ (NEGATIVE) H Urine RBC 5-10 /HPF (0 - 2) H Urine WBC 10-15 /HPF (0 - 2) H Urine Squamous Epithelial Cells Many /LPF (NONE/OCC) H Urine Bacteria Many /HPF (NONE) H Urine Eosinophils None seen (NONE SEEN) Urine Random Creatinine Pending Urine Random Microalbumin Pending Urine Random Total Protein 164 MG/DL (< 11.9) H Urine Random Sodium 39 mmol/L (20-110) Urine Creatinine 157.9 MG/DL (30.0-125.0) H Urine Microalbumin/Creatinine Ratio Pending Microbiology Date/Time Source Procedure Growth Status 06/04/18 00:00 Stool Ordered 06/03/18 08:54 Urine,Clean Catch Urine Culture - Preliminary Gram Negative Bacillus 1 Resulted Reji Baron MD Jun 05, 2018 00:36
[2018-06-05 05:14] LABS: BASOPHILS % (AUTO) 0.4 % (0.0-2.0); EOSINOPHILS % (AUTO) 0.2 % (0.0-3.0); HEMATOCRIT 26.3 % (37.0-47.0); HEMOGLOBIN 8.9 G/DL (12.0-16.0); LYMPHOCYTES % (AUTO) 5.9 % (20.0-45.0); MEAN CORPUSCULAR VOLUME 88 FL (80-99); MONOCYTES % (AUTO) 11.4 % (1.0-10.0); NEUTROPHILS % (AUTO) 82.2 % (45.0-75.0); PLATELET COUNT 176 K/UL (150-450); RED CELL DISTRIBUTION WIDTH 11.7 % (11.6-14.8); WHITE BLOOD COUNT 8.3 K/UL (4.8-10.8)
[2018-06-05 05:25] LABS: ANION GAP 11 mmol/L (5-15); BLOOD UREA NITROGEN 11 mg/dL (7-18); CALCIUM 7.9 MG/DL (8.5-10.1); CARBON DIOXIDE 19 MMOL/L (21-32); CHLORIDE 100 MMOL/L (98-107); CREATININE 0.8 MG/DL (0.55-1.30); POTASSIUM 3.4 MMOL/L (3.5-5.1); SODIUM 130 MMOL/L (136-145)
[2018-06-05 05:29] LABS: ALANINE AMINOTRANSFERASE 28 U/L (12-78); ALBUMIN/GLOBULIN RATIO 0.5 (1.0-2.7); ALKALINE PHOSPHATASE 136 U/L (46-116); ASPARTATE AMINO TRANSFERASE 22 U/L (15-37); BILIRUBIN,TOTAL 0.3 MG/DL (0.2-1.0)
[2018-06-05] MEDS: NovoLOG Insulin Flexpen SUBQ SCH ×7 (06:28→22:04)
[2018-06-05] MEDS: Meropenem 1gm/NS 110ml IVPB SCH ×4 (07:46→14:39)
[2018-06-05] MEDS ORDERED: Vancomycin 1500mg IVPB SCH (08:00)
[2018-06-05] MEDS ORDERED: Vancomycin 1750mg/D5W 300ml IVPB SCH ×2 (08:00)
--- NOTE | 2018-06-05 08:06 | General Progress Note ---
Assessment/Plan Problem List: (1) Renal insufficiency ICD Codes: N28.9 - Disorder of kidney and ureter, unspecified SNOMED: 464542987, 145192917 (2) Hyponatremia ICD Codes: E87.1 - Hypo-osmolality and hyponatremia SNOMED: 95875100 (3) Diabetes ICD Codes: E11.9 - Type 2 diabetes mellitus without complications SNOMED: 76944152 (4) Hyperglycemia ICD Codes: R73.9 - Hyperglycemia, unspecified SNOMED: 41809111 (5) Fever ICD Codes: R50.9 - Fever, unspecified SNOMED: 072664977 (6) UTI (urinary tract infection) ICD Codes: N39.0 - Urinary tract infection, site not specified SNOMED: 84000934 Status: unchanged Assessment/Plan 02 pulm tx abx bs control ot pt diet cbc bmp am Subjective Constitutional: Reports: weakness Respiratory: Reports: shortness of breath Allergies: Coded Allergies: No Known Allergies (Unverified , 05/27/13) All Systems: reviewed and negative except above Subjective 02 mask in icu Objective Last 24 Hour Vital Signs Date Time Temp Pulse Resp B/P (MAP) Pulse Ox O2 Delivery O2 Flow Rate FiO2 06/05/18 08:00 103 16 Room Air 06/05/18 07:00 99.8 104 26 141/71 (94) 100 99.8 06/05/18 06:00 99.8 106 26 132/57 (82) 100 99.8 06/05/18 05:00 99.8 106 26 139/64 (89) 100 99.8 06/05/18 04:00 126 06/05/18 04:00 101.9 106 26 150/74 (99) 100 101.9 06/05/18 03:59 102.0 06/05/18 02:45 133 06/05/18 02:37 102.0 06/05/18 02:03 102.0 06/05/18 02:00 103.8 154 28 151/93 (112) 86 103.8 06/05/18 01:33 100.2 06/05/18 00:00 101.7 108 18 149/78 (101) 97 101.7 06/04/18 21:00 Room Air 06/04/18 20:30 101 18 Room Air 06/04/18 20:00 100.2 105 18 152/69 (96) 97 100.2 06/04/18 18:31 99.9 06/04/18 16:00 99.9 96 18 150/70 (96) 96 99.9 06/04/18 12:30 98.4 91 20 133/68 (89) 98 98.4 06/04/18 11:29 90 06/04/18 11:25 100.0 06/04/18 10:31 100.0 06/04/18 08:50 100.0 105 20 121/74 (90) 98 100.0 06/04/18 08:10 91 18 Room Air Intake and Output 06/04/18 06/05/18 19:00 07:00 Intake Total 1610 ml 1650 ml Output Total 250 ml Balance 1610 ml 1400 ml Intake Oral 360 ml 800 ml IV Total 700 ml 850 ml Other 550 ml Output Urine Total 250 ml # Voids 6 3 Laboratory Tests 06/04/18 09:00: Urine Color Pale yellow, Urine Appearance Cloudy, Urine pH 6, Urine Specific [place] 1.015, Urine Protein 3+H, Urine Glucose (UA) 4+H, Urine Ketones 1+H, Urine Occult Blood 2+H, Urine Nitrite PositiveH, Urine Bilirubin Negative, Urine Urobilinogen Normal, Urine Leukocyte Esterase 3+H, Urine RBC 5-10H, Urine WBC 10-15H, Urine Squamous Epithelial Cells ManyH, Urine Bacteria ManyH, Urine Eosinophils None seen, Urine Random Creatinine [Pending], Urine Random Microalbumin [Pending], Urine Random Total Protein 164H, Urine Random Sodium 39 , Urine Creatinine 157.9H, Urine Microalbumin/Creatinine Ratio [Pending] 06/05/18 03:50: White Blood Count 8.3, Red Blood Count 3.00L, Hemoglobin 8.9L, Hematocrit 26.3L , Mean Corpuscular Volume 88, Mean Corpuscular Hemoglobin 29.7, Mean Corpuscular Hemoglobin Concent 33.9, Red Cell Distribution Width 11.7, Platelet Count 176, Mean Platelet Volume 8.5, Neutrophils (%) (Auto) 82.2H, Lymphocytes ( %) (Auto) 5.9L, Monocytes (%) (Auto) 11.4H, Eosinophils (%) (Auto) 0.2, Basophils (%) (Auto) 0.4, Sodium Level 130L, Potassium Level 3.4L, Chloride Level 100, Carbon Dioxide Level 19L, Anion Gap 11, Blood Urea Nitrogen 11, Creatinine 0.8, Estimat Glomerular Filtration Rate > 60, Glucose Level 379H, Calcium Level 7.9L, Total Bilirubin 0.3, Aspartate Amino Transf (AST/SGOT) 22, Alanine Aminotransferase (ALT/SGPT) 28, Alkaline Phosphatase 136H, Total Protein 6.3L, Albumin 2.0L, Globulin 4.3, Albumin/Globulin Ratio 0.5L, HIV-1 RNA (PCR) log10 Value [Pending], HIV-1 RNA Ultraquantitative (PCR) [Pending], HIV (1&2) Antibody Rapid Negative Height (Feet): 4 Height (Inches): 11.00 Weight (Pounds): 185 General Appearance: lethargic EENT: normal ENT inspection Neck: normal alignment Cardiovascular: normal peripheral pulses, normal rate, regular rhythm Respiratory/Chest: chest wall non-tender, decreased breath sounds Abdomen: normal bowel sounds, non tender, soft Extremities: normal inspection Edema: no edema noted Arm (L), no edema noted Arm (R), no edema noted Leg (L), no edema noted Leg (R), no edema noted Pedal (L), no edema noted Pedal (R), no edema noted Generalized Neurologic: responsive, motor weakness Skin: normal pigmentation, warm/dry Yg Bhakta DO Jun 05, 2018 08:06
--- NOTE | 2018-06-05 08:49 | Diagnostic Imaging Report ---
Indication: Shortness of breath Technique: One view of the chest Comparison: 06/04/2018 Findings: Interim development of bilateral diffuse interstitial disease, with some airspace consolidation in the bilateral perihilar and right infrahilar regions. The heart size is normal. There may be a small pleural effusion now present on the left. Impression: Interim development of bilateral interstitial disease and focal airspace consolidation-infiltrates versus edema Small left pleural effusion This agrees with the preliminary interpretation provided overnight by [facility] teleradiology service.
[2018-06-05] MEDS: Heparin 5000 units/ml inj SUBQ SCH ×2 (10:05→22:05)
[2018-06-05] MEDS: Levemir Flexpen SUBQ SCH ×2 (10:05→22:02)
--- NOTE | 2018-06-05 10:11 | Diagnostic Imaging Report ---
Indication: Abdominal pain Technique: Harvey-scale and duplex images of the upper abdomen were obtained Comparison: none Findings: Gallbladder demonstrates no stones. It is nondistended. Apparent gallbladder wall thickening is probably an artifact of under distention. No pericholecystic fluid. Sonographic Holloway's sign is negative. Common bile duct measures 3 mm in diameter. No intrahepatic biliary ductal dilatation. The liver is enlarged. It demonstrates equivocally minimally increased echogenicity Portal vein and hepatic veins are patent. Pancreas is unremarkable. Spleen is unremarkable. Left kidney measures 12.5 cm in length. Right kidney measures 12.2 cm length. Both kidneys demonstrate normal echogenicity. There is no hydronephrosis. No focal abnormality . Abdominal aorta is partially obscured by bowel gas, visualized portions are non-aneurysmal . Incidental finding of small bilateral pleural effusions Impression: Negative for gallstones or dilated ducts Mild hepatomegaly. Equivocally increased hepatic echogenicity, if real could indicate hepatocellular disease such as fatty change. Correlate with liver function tests Small bilateral pleural effusions
--- NOTE | 2018-06-05 10:30 | Consultation ---
DATE OF CONSULTATION: 06/04/2018 CARDIOLOGY CONSULTATION CONSULTING PHYSICIAN: Reji Baron M.D. REFERRING PHYSICIAN: Yg Bhakta D.O. REASON FOR CONSULTATION: Management of tachycardia. HISTORY OF PRESENT ILLNESS: This is a very unfortunate 53-year-old female who presents to the emergency department with two days history of malaise, nausea, diarrhea, diffuse abdominal pain, 00:41 feeling thirsty with frequent urination. She feels dehydrated. She has history of diabetes mellitus and according to her, compliant with insulin therapy. At the time of presenting to the emergency department, her blood pressure was 121/67 mmHg and heart rate of 149. She was having low-grade fever at 99.2 degrees Fahrenheit. A 12-lead electrocardiogram in the ED showed sinus tachycardia at the rate of [address] and T-wave abnormalities. Initial blood test showed electrolyte derangement including sodium of 124 with glucose of 867. Initial bicarbonate was 13 with anion gap of 20. She was admitted to telemetry for further evaluation and management. Cardiology consultation was made at the request of Dr. Bhakta for assessment and evaluation of tachycardia. PAST MEDICAL HISTORY: Diabetes mellitus. PAST SURGICAL HISTORY: None. LIST OF MEDICATIONS: 1. Acetaminophen 650 q.4 h. p.r.n. temperature above 100.5 03:05. 2. Mag-Al liquid 30 mL q.6 hours p.r.n. indigestion. 3. Cefepime 1 g IV piggyback q.12 hours. 4. Promethazine and codeine 5 mL q.6 hours p.r.n. cough. 5. Motrin 600 mg 3 times a day. 6. NovoLog insulin 10 units subcutaneous three times a day before meals. 7. Levemir insulin 20 units subcutaneous at bedtime. 8. DuoNeb 3 mL HHN t.i.d. 9. Methylprednisone 40 mg intravenous daily. 10. Nitroglycerin 0.4 mg subcutaneous sublingual q.5 minutes p.r.n. chest pain. 11. Zofran 4 mg IV q.6 hours p.r.n. nausea and vomiting. 12. MiraLAX 17 grams p.o. daily p.r.n. constipation. 13. Zantac 150 mg at bedtime. 14. Temazepam 15 mg p.o. at bedtime p.r.n. insomnia. 15. Ultram 50 mg q.8 hours p.r.n. pain. 16. Vancomycin 1.25 gram intravenous piggyback q.12 hours. 17. Ambien 5 mg p.o. at bedtime p.r.n. insomnia. ALLERGIES: No known drug allergies. FAMILY HISTORY: No premature coronary artery disease in the first-degree relatives. SOCIAL HISTORY: Denies any tobacco, alcohol, or illicit drug use. REVIEW OF SYSTEMS: HEENT: Denies any headache, diplopia, or blurred vision. CONSTITUTIONAL: Generalized weakness. Denies any fever or chills. Positive night sweats. Positive malaise. CVS: Denies any chest pain, shortness breath, PND, orthopnea, or leg swelling. PULMONARY: Denies any cough, hemoptysis, or wheezing. GASTROINTESTINAL: Some mild loose bowel movement as well as nausea and diffuse abdominal cramping. GENITOURINARY: Feeling thirsty with frequency of urination. No dysuria or hematuria. NEUROLOGY: Denies any motor dysfunction, sensory deficit, or altered speech. PHYSICAL EXAM: VITAL SIGNS: Blood pressure was 121/67, pulse of 149, respirations 24, temperature 99.2 degrees Fahrenheit, and O2 saturation 95% on room air. GENERAL: This is a very unfortunate 53-year-old lady, in no apparent respiratory distress. Alert and oriented x4. HEENT: Atraumatic and normocephalic. Anicteric. Pupils are equal, round, and reactive to light and accommodation. Extraocular muscles intact. NECK: JVP less than 5 cm. No carotid bruit. Carotid upstroke is 2+ bilaterally. CVS: Normal S1, S2. Tachycardic. No murmurs, gallops, or rubs. PMI is at fourth intercostal space in the midclavicular line. LUNGS: Clear to auscultation bilaterally. ABDOMEN: Soft, nontender, and nondistended. No hepatosplenomegaly. Positive bowel sounds. EXTREMITIES: No evidence of edema, clubbing, or cyanosis. LABORATORY FINDINGS: Sodium 134, potassium is 4.0, chloride 91, bicarbonate 13, BUN of 17, creatinine 1.6, and glucose is 867. Calcium is 8.7. Magnesium 1.6. Total cholesterol 177, LDL is 82, and HDL of 17. Triglycerides 494. Chest x-ray shows no acute cardiopulmonary disease. ASSESSMENT AND PLAN: The patient is a very unfortunate 53-year-old lady seen in Cardiology consultation at the request of of Dr. Bhakta. 1. Sinus tachycardia. This is most likely secondary to hypovolemia. Most of 07:18 leading to severe dehydration and hypovolemia resulting in tachycardia. 2. 07:33 therapy with aggressive hydration. No AV magdy agents is required at this time. 3. Uncontrolled hyperglycemia with hemoglobin A1c of above 13. The patient requires tight blood sugar control. I would like to thank, Dr. Bhakta, for allowing me to participate in the care of this patient. Reji Baron M.D. DR: SHYAM JOB#: [id number] CC:
--- NOTE | 2018-06-05 11:51 | Nephrology Progress Note ---
Assessment/Plan Assessment 1. Hypovolemic hyponatremia. Hyponatremia is as a result of severe hyperglycemia. 2. Anion gap, unknown anion gap acidosis and non-anion gap acidosis most likely due to diarrhea and anion gap as a result of acute renal failure. 3. Uncontrolled diabetes. 4. Hypocalcemia. 5. Dyslipidemia with HDL of 17. 6. Proteinuria, rule out diabetic nephropathy, although the patient denies any current history of diabetic neuropathy. Plan plan decrease ivf replace K breathing treatment check vit d monitoring renal function avoid NSAID Subjective Constitutional: Reports: chills, fever HEENT: Reports: no symptoms Neurologic/Psychiatric: Reports: no symptoms Subjective she was transferred to ICU due to tachycardia and SOB and fever this morning she c/o cough ,wheezing , Objective Objective Last 24 Hour Vital Signs Date Time Temp Pulse Resp B/P (MAP) Pulse Ox O2 Delivery O2 Flow Rate FiO2 06/05/18 11:00 105 27 123/66 (85) 100 06/05/18 10:00 100 22 146/69 (94) 100 06/05/18 09:18 99.8 06/05/18 09:00 116 27 149/69 (95) 100 06/05/18 08:00 99.8 118 25 157/73 (101) 100 99.8 06/05/18 08:00 103 16 Room Air 06/05/18 07:00 99.8 104 26 141/71 (94) 100 99.8 06/05/18 06:00 99.8 106 26 132/57 (82) 100 99.8 06/05/18 05:00 99.8 106 26 139/64 (89) 100 99.8 06/05/18 04:00 126 06/05/18 04:00 101.9 106 26 150/74 (99) 100 101.9 06/05/18 03:59 102.0 06/05/18 02:45 133 06/05/18 02:37 102.0 06/05/18 02:03 102.0 06/05/18 02:00 103.8 154 28 151/93 (112) 86 103.8 06/05/18 01:33 100.2 06/05/18 00:00 101.7 108 18 149/78 (101) 97 101.7 06/04/18 21:00 Room Air 06/04/18 20:30 101 18 Room Air 06/04/18 20:00 100.2 105 18 152/69 (96) 97 100.2 06/04/18 18:31 99.9 06/04/18 16:00 99.9 96 18 150/70 (96) 96 99.9 06/04/18 12:30 98.4 91 20 133/68 (89) 98 98.4 Intake and Output 06/04/18 06/05/18 19:00 07:00 Intake Total 1610 ml 1650 ml Output Total 250 ml Balance 1610 ml 1400 ml Intake Oral 360 ml 800 ml IV Total 700 ml 850 ml Other 550 ml Output Urine Total 250 ml # Voids 6 3 Laboratory Tests 06/05/18 03:50: White Blood Count 8.3, Red Blood Count 3.00L, Hemoglobin 8.9L, Hematocrit 26.3L , Mean Corpuscular Volume 88, Mean Corpuscular Hemoglobin 29.7, Mean Corpuscular Hemoglobin Concent 33.9, Red Cell Distribution Width 11.7, Platelet Count 176, Mean Platelet Volume 8.5, Neutrophils (%) (Auto) 82.2H, Lymphocytes ( %) (Auto) 5.9L, Monocytes (%) (Auto) 11.4H, Eosinophils (%) (Auto) 0.2, Basophils (%) (Auto) 0.4, Sodium Level 130L, Potassium Level 3.4L, Chloride Level 100, Carbon Dioxide Level 19L, Anion Gap 11, Blood Urea Nitrogen 11, Creatinine 0.8, Estimat Glomerular Filtration Rate > 60, Glucose Level 379H, Calcium Level 7.9L, Total Bilirubin 0.3, Aspartate Amino Transf (AST/SGOT) 22, Alanine Aminotransferase (ALT/SGPT) 28, Alkaline Phosphatase 136H, Total Protein 6.3L, Albumin 2.0L, Globulin 4.3, Albumin/Globulin Ratio 0.5L, HIV-1 RNA (PCR) log10 Value [Pending], HIV-1 RNA Ultraquantitative (PCR) [Pending], HIV (1&2) Antibody Rapid Negative Height (Feet): 4 Height (Inches): 11.00 Weight (Pounds): 185 Objective HEAD AND NECK: No JVP. No LAD. No thyromegaly. Extraocular movement intact. Pupils are reactive to light and accommodation. LUNGS: wheezing and rhonchi CARDIAC: Regular rate and rhythm. S1 and S2. No murmur. No rub. ABDOMEN: Soft, nontender, and nondistended. No organomegaly. EXTREMITIES: No edema. No clubbing. No cyanosis. Karma Painter MD Jun 05, 2018 11:51
[2018-06-05] MEDS: Albuterol/Ipratropium 3ml neb HHN PRN ×2 (11:55→15:43)
--- NOTE | 2018-06-05 12:28 | Pulmonolgy Critical Care Note ---
Critical Care - Asmt/Plan Problems: (1) Acute respiratory failure (2) Fever (3) Hyperglycemia (4) Diabetes (5) Pneumonia Respiratory: monitor respiratory rate, adjust FIO2, CXR Cardiac: continue to monitor HR/BP Infectious Disease: check cultures Gastrointestinal: continue feedings/current rate Endocrine: monitor blood sugar, check TSH, check HgA1C Hematologic: monitor H/H Neurologic: PRN Morphine Prophylaxis: Protonix Disposition: keep in ICU Time Spent (Minutes): 40 Notes Reviewed: data warehouse administrator, cardio Discussed with: nurses, consultants, residential case managerequipment hire manager - Objective Last 24 Hour Vital Signs Date Time Temp Pulse Resp B/P (MAP) Pulse Ox O2 Delivery O2 Flow Rate FiO2 06/05/18 12:13 Nasal Cannula 3.0 32 06/05/18 12:13 100 Nasal Cannula 3.0 32 06/05/18 12:05 98.0 101 25 140/74 (96) 100 98.0 06/05/18 11:55 102 24 100 Venturi Mask 10.0 45 06/05/18 11:00 105 27 123/66 (85) 100 06/05/18 10:00 100 22 146/69 (94) 100 06/05/18 09:18 99.8 06/05/18 09:00 116 27 149/69 (95) 100 06/05/18 08:00 99.8 118 25 157/73 (101) 100 99.8 06/05/18 08:00 103 16 Room Air 06/05/18 07:00 99.8 104 26 141/71 (94) 100 99.8 06/05/18 06:00 99.8 106 26 132/57 (82) 100 99.8 06/05/18 05:00 99.8 106 26 139/64 (89) 100 99.8 06/05/18 04:00 126 06/05/18 04:00 101.9 106 26 150/74 (99) 100 101.9 06/05/18 03:59 102.0 06/05/18 02:45 133 06/05/18 02:37 102.0 06/05/18 02:03 102.0 06/05/18 02:00 103.8 154 28 151/93 (112) 86 103.8 06/05/18 01:33 100.2 06/05/18 00:00 101.7 108 18 149/78 (101) 97 101.7 06/04/18 21:00 Room Air 06/04/18 20:30 101 18 Room Air 06/04/18 20:00 100.2 105 18 152/69 (96) 97 100.2 06/04/18 18:31 99.9 06/04/18 16:00 99.9 96 18 150/70 (96) 96 99.9 06/04/18 12:30 98.4 91 20 133/68 (89) 98 98.4 Status: awake Condition: critical Neck: full ROM Lungs: chest wall tender Heart: HR/BP stable Abdomen: soft, active bowel sounds Extremities: no C/C/E Decubiti: location Micro: Microbiology Date/Time Source Procedure Growth Status 06/04/18 00:00 Stool Ordered 06/04/18 09:00 Urine,Clean Catch Urine Culture - Preliminary Gram Negative Bacillus 1 Resulted 06/03/18 08:54 Urine,Clean Catch Urine Culture - Final Escherichia Coli Complete Accucheck: 246 Critical Care - Subjective ROS Limited/Unobtainable: No Condition: critical EKG Rhythm: Sinus Rhythm FI02: 32 Sputum Amount: None I&O: Intake and Output 06/04/18 06/05/18 19:00 07:00 Intake Total 1610 ml 1650 ml Output Total 250 ml Balance 1610 ml 1400 ml Intake Oral 360 ml 800 ml IV Total 700 ml 850 ml Other 550 ml Output Urine Total 250 ml # Voids 6 3 Labs: Laboratory Tests Test 06/05/18 03:50 White Blood Count 8.3 K/UL (4.8-10.8) Red Blood Count 3.00 M/UL (4.20-5.40) L Hemoglobin 8.9 G/DL (12.0-16.0) L Hematocrit 26.3 % (37.0-47.0) L Mean Corpuscular Volume 88 FL (80-99) Mean Corpuscular Hemoglobin 29.7 PG (27.0-31.0) Mean Corpuscular Hemoglobin Concent 33.9 G/DL (32.0-36.0) Red Cell Distribution Width 11.7 % (11.6-14.8) Platelet Count 176 K/UL (150-450) Mean Platelet Volume 8.5 FL (6.5-10.1) Neutrophils (%) (Auto) 82.2 % (45.0-75.0) H Lymphocytes (%) (Auto) 5.9 % (20.0-45.0) L Monocytes (%) (Auto) 11.4 % (1.0-10.0) H Eosinophils (%) (Auto) 0.2 % (0.0-3.0) Basophils (%) (Auto) 0.4 % (0.0-2.0) Sodium Level 130 MMOL/L (136-145) L Potassium Level 3.4 MMOL/L (3.5-5.1) L Chloride Level 100 MMOL/L (98-107) Carbon Dioxide Level 19 MMOL/L (21-32) L Anion Gap 11 mmol/L (5-15) Blood Urea Nitrogen 11 mg/dL (7-18) Creatinine 0.8 MG/DL (0.55-1.30) Estimat Glomerular Filtration Rate > 60 mL/min (>60) Glucose Level 379 MG/DL (74-106) H Calcium Level 7.9 MG/DL (8.5-10.1) L Total Bilirubin 0.3 MG/DL (0.2-1.0) Aspartate Amino Transf (AST/SGOT) 22 U/L (15-37) Alanine Aminotransferase (ALT/SGPT) 28 U/L (12-78) Alkaline Phosphatase 136 U/L (46-116) H Total Protein 6.3 G/DL (6.4-8.2) L Albumin 2.0 G/DL (3.4-5.0) L Globulin 4.3 g/dL Albumin/Globulin Ratio 0.5 (1.0-2.7) L HIV-1 RNA (PCR) log10 Value Pending HIV-1 RNA Ultraquantitative (PCR) Pending HIV (1&2) Antibody Rapid Negative (NEGATIVE) Barb Prasad MD Jun 05, 2018 12:28
[2018-06-05] MEDS ORDERED: Sodium Phosphate 30 MM in NS 275 ML IV ONE (14:00)
[2018-06-05] MEDS ORDERED: Potassium Chloride 40 MEQ in Sodium Chloride 500ML 550 ML IVPB ONE (15:00)
[2018-06-05] MEDS ORDERED: Isovue-300 100ml vial INJ PRN ×4 (16:45→20:30)
--- NOTE | 2018-06-05 16:51 | Infectious Diseases Prog Note ---
Assessment/Plan Assessment/Plan Assessment/Plan Ms Ramos is a 53 yo female with PMHx of DM who presented with hyperglycemia, increased thirst and frequency and abdominal cramps. #Sepsis- ?UTI (mild pyuria, no UTI symptoms but Ucx +), possible PNA (normal CXR upon admission; ?fluid vs PNA), Gram positive bacteremia (?contaminant vs real)- r/o listeria (n/v, STATON, sepsis) -CXR 06/05: Interim development of bilateral interstitial disease and focal airspace consolidation-infiltrates versus edema. Small left pleural effusion -CXR 06/04 no acute disease -u/a wbc 5-10; ucx >100K E.coli (lanza S) -BCx GPRs -HIV ab screen eg #Headache # Loose stool and Abdominal Cramps - Likely related to hyperglycemia or viral infection. - r/o bacterial GE, cdiff, acute HIV -Abd US: Negative for gallstones or dilated ducts. Mild hepatomegaly. Equivocally increased hepatic echogenicity, if real could indicate hepatocellular disease such as fatty change. Correlate with liver function tests. Small bilateral pleural effusions -Cdiff, stool cx p #Fever #DM/Mild DKA upon presentation PLAN -Cotinue empiric IV Vacomycin and switch Meropenem to Zosyn for empiric listeria coverage pending ID GPRs -CT chest/abd/p/head w/ -repeat 2 sets of Bcx -f/u stool cx, Cdiff, HIV VL - BS control - Monitor CBC and Temps Thank you for consulting us for the care of this patient. We will continue to follow with you. Subjective Allergies: Coded Allergies: No Known Allergies (Unverified , 05/27/13) Subjective dental manager, patient had CAN FILLING ROOM SWEEPER due to Sinus tach to 150s, desat to mid 80s, SOB , Fever up to 103 transferred ton ICU on NRB 100%, now on 3 l NC Started on IV Vanco and Meropenem Bcx GPR initial CXR neg, now with infiltrates Objective Vital Signs Last 24 Hour Vital Signs Date Time Temp Pulse Resp B/P (MAP) Pulse Ox O2 Delivery O2 Flow Rate FiO2 06/05/18 16:00 99.9 110 27 127/61 (83) 98 99.9 06/05/18 15:53 102 24 99 Nasal Cannula 2.0 28 06/05/18 15:43 100 23 100 Nasal Cannula 3.0 32 06/05/18 15:00 99.0 100 25 120/70 (87) 100 99.0 06/05/18 14:00 105 26 160/70 (100) 100 06/05/18 13:00 102 21 132/62 (85) 100 06/05/18 12:13 Nasal Cannula 3.0 32 18 12:13 100 Nasal Cannula 3.0 32 06/05/18 12:05 98.0 101 25 140/74 (96) 100 98.0 06/05/18 12:05 104 20 99 Nasal Cannula 3.0 32 06/05/18 12:00 Nasal Cannula 3.0 06/05/18 11:55 102 24 100 Venturi Mask 10.0 45 06/05/18 11:00 105 27 123/66 (85) 100 06/05/18 10:00 100 22 146/69 (94) 100 06/05/18 09:18 99.8 06/05/18 09:00 116 27 149/69 (95) 100 06/05/18 08:00 99.8 118 25 157/73 (101) 100 99.8 06/05/18 08:00 103 16 Room Air 06/05/18 08:00 Nasal Cannula 3.0 06/05/18 07:00 99.8 104 26 141/71 (94) 100 99.8 06/05/18 06:00 99.8 106 26 132/57 (82) 100 99.8 06/05/18 05:00 99.8 106 26 139/64 (89) 100 99.8 06/05/18 04:00 126 06/05/18 04:00 101.9 106 26 150/74 (99) 100 101.9 06/05/18 03:59 102.0 06/05/18 02:45 133 06/05/18 02:37 102.0 06/05/18 02:03 102.0 06/05/18 02:00 103.8 154 28 151/93 (112) 86 103.8 06/05/18 01:33 100.2 06/05/18 00:00 101.7 108 18 149/78 (101) 97 101.7 06/04/18 21:00 Room Air 06/04/18 20:30 101 18 Room Air 06/04/18 20:00 100.2 105 18 152/69 (96) 97 100.2 06/04/18 18:31 99.9 Height (Feet): 4 Height (Inches): 11.00 Weight (Pounds): 185 Objective Gen: NAD, well appearing, alert HEENT: NCAT, MMM, EOMI, PERRL, No Oral lesion, no scleral icterus NECK: full range of motion, supple, no meningismus, No LAD, No JVD LUNGS: CTAB, No W/C, No Accessory muscle use CARDS: RRR, S1, S2, No M/R/G, ABD: Soft, NT, ND, No R/G, + BS, No HSM, No Masses : Deferred Ext: C/C/E, Pulses 2+ B/L (DP, Rad): NEURO: A/O x 4, Strength and Sensation Grossly intact PSYCH: mood/affect normal SKIN: warm/dry, No rashes, Microbiology Date/Time Source Procedure Growth Status 06/04/18 10:30 Blood Blood Culture - Preliminary Resulted 06/04/18 00:00 Stool Ordered 06/04/18 09:00 Urine,Clean Catch Urine Culture - Preliminary Gram Negative Bacillus 1 Resulted 06/03/18 08:54 Urine,Clean Catch Urine Culture - Final Escherichia Coli Complete 06/05/18 02:00 Buttock Left Gram Stain - Final Resulted 06/05/18 02:00 Buttock Left Wound Culture Pending Resulted Laboratory Tests Test 06/05/18 03:50 White Blood Count 8.3 K/UL (4.8-10.8) Red Blood Count 3.00 M/UL (4.20-5.40) L Hemoglobin 8.9 G/DL (12.0-16.0) L Hematocrit 26.3 % (37.0-47.0) L Mean Corpuscular Volume 88 FL (80-99) Mean Corpuscular Hemoglobin 29.7 PG (27.0-31.0) Mean Corpuscular Hemoglobin Concent 33.9 G/DL (32.0-36.0) Red Cell Distribution Width 11.7 % (11.6-14.8) Platelet Count 176 K/UL (150-450) Mean Platelet Volume 8.5 FL (6.5-10.1) Neutrophils (%) (Auto) 82.2 % (45.0-75.0) H Lymphocytes (%) (Auto) 5.9 % (20.0-45.0) L Monocytes (%) (Auto) 11.4 % (1.0-10.0) H Eosinophils (%) (Auto) 0.2 % (0.0-3.0) Basophils (%) (Auto) 0.4 % (0.0-2.0) Sodium Level 130 MMOL/L (136-145) L Potassium Level 3.4 MMOL/L (3.5-5.1) L Chloride Level 100 MMOL/L (98-107) Carbon Dioxide Level 19 MMOL/L (21-32) L Anion Gap 11 mmol/L (5-15) Blood Urea Nitrogen 11 mg/dL (7-18) Creatinine 0.8 MG/DL (0.55-1.30) Estimat Glomerular Filtration Rate > 60 mL/min (>60) Glucose Level 379 MG/DL (74-106) H Calcium Level 7.9 MG/DL (8.5-10.1) L Total Bilirubin 0.3 MG/DL (0.2-1.0) Aspartate Amino Transf (AST/SGOT) 22 U/L (15-37) Alanine Aminotransferase (ALT/SGPT) 28 U/L (12-78) Alkaline Phosphatase 136 U/L (46-116) H Total Protein 6.3 G/DL (6.4-8.2) L Albumin 2.0 G/DL (3.4-5.0) L Globulin 4.3 g/dL Albumin/Globulin Ratio 0.5 (1.0-2.7) L HIV-1 RNA (PCR) log10 Value Pending HIV-1 RNA Ultraquantitative (PCR) Pending HIV (1&2) Antibody Rapid Negative (NEGATIVE) Current Medications Medications (Trade) Dose Ordered Sig/Juan Route PRN Reason Start Time Stop Time Status Last Admin Dose Admin Acetaminophen (Tylenol) 650 mg Q4H PRN ORAL Mild Pain/Temp > 100.5 06/04/18 14:30 07/03/18 10:29 06/05/18 13:24 Al Hydroxide/Mg Hydroxide (Mylanta II) 30 ml Q6H PRN ORAL dyspepsia 06/04/18 14:30 07/03/18 14:29 Albuterol/ Ipratropium (Albuterol/ Ipratropium) 3 ml Q4H PRN HHN Shortness of Breath 06/04/18 14:30 06/09/18 14:29 06/05/18 15:43 Clonidine HCl (Catapres Tab) 0.1 mg Q4H PRN ORAL sbp more than 160 06/04/18 14:30 07/04/18 14:29 Dextrose (Dextrose 50%) 25 ml STAT PRN IV Hypoglycemia 06/04/18 14:30 07/03/18 14:29 Dextrose (Dextrose 50%) 50 ml STAT PRN IV Hypoglycemia 06/04/18 14:30 07/03/18 14:29 Heparin Sodium (Porcine) (Heparin 5000 units/ml) 5,000 units EVERY 12 HOURS SUBQ 06/04/18 21:00 07/03/18 20:59 06/05/18 10:05 Insulin Aspart (NovoLOG) BEFORE MEALS AND HS SUBQ 06/04/18 16:30 07/03/18 20:59 06/05/18 12:01 Insulin Aspart (NovoLOG) 10 units NOVOTIAC SUBQ 06/04/18 16:50 07/04/18 16:49 06/05/18 12:02 Insulin Detemir (Levemir) 20 units Q12H SUBQ 06/04/18 21:00 07/03/18 20:59 06/05/18 10:05 Ketorolac Tromethamine (Toradol 30mg) 30 mg Q4H PRN IV moderate pain 4-6 06/04/18 14:30 06/09/18 14:29 06/04/18 17:57 Meropenem 1 gm/ Sodium Chloride 110 ml @ 220 mls/hr Q8H IVPB 06/05/18 07:00 06/10/18 06:59 06/05/18 14:39 Morphine Sulfate (Morphine Sulfate) 2 mg Q4H PRN IVP severe pain 7-10 06/04/18 14:30 06/11/18 14:29 06/05/18 01:33 Nitroglycerin (Ntg) 0.4 mg Q5M X 3 DOSES PRN SL Prn Chest Pain 06/04/18 14:30 07/03/18 13:44 Ondansetron HCl (Zofran) 4 mg Q6H PRN IVP Nausea & Vomiting 06/04/18 14:30 07/03/18 14:29 Polyethylene Glycol (Miralax) 17 gm HSPRN PRN ORAL Constipation 06/04/18 14:30 07/04/18 14:29 Potassium Chloride 40 meq/ Sodium Chloride 570 ml @ 142.5 mls/ hr ONCE ONCE IVPB 06/05/18 15:00 06/05/18 18:59 06/05/18 14:38 Sodium Phosphate 30 mm/Sodium Chloride 285 ml @ 47.5 mls/hr ONCE ONCE IV 06/05/18 14:00 06/05/18 19:59 06/05/18 13:56 Vancomycin HCl (Vanco rx to dose) 1 ea DAILY PRN MISC Per rx protocol 06/05/18 06:00 07/05/18 05:59 Vancomycin HCl/ Dextrose 250 ml @ 125 mls/hr Q24H IVPB 06/05/18 08:00 06/10/18 07:59 06/05/18 10:03 Zolpidem Tartrate (Ambien) 5 mg HSPRN PRN ORAL Insomnia 06/04/18 14:30 06/10/18 14:29 06/04/18 21:34 Laura Anguiano M.D. Jun 05, 2018 16:51
[2018-06-05] MEDS ORDERED: Sodium Chloride 3% 4ml Nebul Soln INH ONE (17:30)
[2018-06-05] MEDS ORDERED: Nitroglycerin Subl 0.4mg tab SL PRN (21:07)
[2018-06-05] MEDS ORDERED: Mylanta II UD 30ml ORAL PRN (21:07)
[2018-06-05] MEDS ORDERED: Zolpidem 5mg tab ORAL PRN (21:08)
[2018-06-05] MEDS ORDERED: Miralax 17gm pkt ORAL PRN (21:08)
[2018-06-05] MEDS ORDERED: Albuterol/Ipratropium 3ml neb HHN PRN (21:10)
[2018-06-05] MEDS ORDERED: Ketorolac 30mg Inj IV PRN (21:10)
[2018-06-05] MEDS ORDERED: Morphine Sulfate 2mg/ml Inj(IV/IM USE ONLY) IVP PRN (21:10)
--- NOTE | 2018-06-05 21:44 | Diagnostic Imaging Report ---
EXAM: XR Chest, 1 View CLINICAL HISTORY: INFECT TECHNIQUE: Frontal view of the chest. COMPARISON: No relevant prior studies available. FINDINGS: Lungs: Interstitial pulmonary opacities bilaterally. Retrocardiac atelectasis/consolidation Pleural space: Blunting of the costophrenic angles. No pneumothorax. Heart: Cardiomegaly. Mediastinum: Unremarkable. Bones/joints: No acute fracture. IMPRESSION: Interstitial pulmonary opacities bilaterally. Could be from interstitial edema and/or pneumonia. There is broader differential.
[2018-06-05] MEDS ORDERED: Piperacillin/Tazobactam 3.375 GM in NS 110 ML IVPB SCH (22:00)
[2018-06-05] MEDS: Piperacillin/Tazobactam 3.375 GM in NS 110 ML IVPB SCH (22:05)
[2018-06-05 22:21] LABS: BASOPHILS % (AUTO) 0.9 % (0.0-2.0); EOSINOPHILS % (AUTO) 0.2 % (0.0-3.0); HEMATOCRIT 24.4 % (37.0-47.0); HEMOGLOBIN 8.7 G/DL (12.0-16.0); LYMPHOCYTES % (AUTO) 15.1 % (20.0-45.0); MEAN CORPUSCULAR VOLUME 87 FL (80-99); MONOCYTES % (AUTO) 15.1 % (1.0-10.0); NEUTROPHILS % (AUTO) 68.7 % (45.0-75.0); PLATELET COUNT 185 K/UL (150-450); RED BLOOD COUNT 2.82 M/UL (4.20-5.40); RED CELL DISTRIBUTION WIDTH 11.9 % (11.6-14.8); WHITE BLOOD COUNT 10.3 K/UL (4.8-10.8)
[2018-06-05 22:38] LABS: ANION GAP 11 mmol/L (5-15); BLOOD UREA NITROGEN 10 mg/dL (7-18); CALCIUM 8.4 MG/DL (8.5-10.1); CARBON DIOXIDE 21 MMOL/L (21-32); CHLORIDE 105 MMOL/L (98-107); CREATININE 0.8 MG/DL (0.55-1.30); POTASSIUM 3.8 MMOL/L (3.5-5.1); SODIUM 137 MMOL/L (136-145)
[2018-06-05 22:46] LABS: ALANINE AMINOTRANSFERASE 28 U/L (12-78); ALBUMIN 1.9 G/DL (3.4-5.0); ALBUMIN/GLOBULIN RATIO 0.4 (1.0-2.7); ALKALINE PHOSPHATASE 138 U/L (46-116); ASPARTATE AMINO TRANSFERASE 21 U/L (15-37); BILIRUBIN,TOTAL 0.2 MG/DL (0.2-1.0)
--- NOTE | 2018-06-05 23:15 | Diagnostic Imaging Report ---
EXAM: CT Head Without Intravenous Contrast CLINICAL HISTORY: SCREEN TECHNIQUE: Axial computed tomography images of the head/brain without intravenous contrast. CTDI is 32 mGy and DLP is 876 mGy-cm. One or more of the following dose reduction techniques were used: automated exposure control, adjustment of the mA and/or kV according to patient size, use of iterative reconstruction technique. COMPARISON: No relevant prior studies available. FINDINGS: Brain: No hemorrhage. No edema. Ventricles: Unremarkable. No ventriculomegaly. Bones/joints: No acute fracture. Soft tissues: Unremarkable. Sinuses: No fluid levels. Mastoid air cells: Unremarkable as visualized. No mastoid effusion. IMPRESSION: No acute intracranial findings
--- NOTE | 2018-06-05 23:20 | Diagnostic Imaging Report ---
EXAM: CT Chest Without Intravenous Contrast CLINICAL HISTORY: SCREEN TECHNIQUE: Axial computed tomography images of the chest without intravenous contrast. CTDI is 32 mGy and DLP is 423 mGy-cm. One or more of the following dose reduction techniques were used: automated exposure control, adjustment of the mA and/or kV according to patient size, use of iterative reconstruction technique. COMPARISON: No relevant prior studies available. FINDINGS: Lungs: Interstitial pulmonary edema. Left greater than right upper lobe infiltrates. Pleural space: Mild to moderate bilateral pleural effusions. No pneumothorax. Heart: Unremarkable. No cardiomegaly. No significant pericardial effusion. Bones/joints: Unremarkable. No acute fracture. No dislocation. Soft tissues: Unremarkable. Vasculature: Unremarkable. No thoracic aortic aneurysm. Lymph nodes: Unremarkable. No enlarged lymph nodes. IMPRESSION: 1. Mild to moderate bilateral pleural effusions. 2. Interstitial pulmonary edema. 3. Left greater than right upper lobe infiltrates. EXAM: CT Abdomen and Pelvis Without Intravenous Contrast CLINICAL HISTORY: SCREEN TECHNIQUE: Axial computed tomography images of the abdomen and pelvis without intravenous contrast. CTDI is 53 mGy and DLP is 636 mGy-cm. One or more of the following dose reduction techniques were used: automated exposure control, adjustment of the mA and/or kV according to patient size, use of iterative reconstruction technique. COMPARISON: No relevant prior studies available. FINDINGS: Lung bases: Unremarkable. No mass. No consolidation. ABDOMEN: Liver: Moderate hepatomegaly, 20.4 cm. Gallbladder and bile ducts: Unremarkable. No calcified stones. No ductal dilation. Pancreas: Unremarkable. No ductal dilation. Spleen: Unremarkable. No splenomegaly. Adrenals: Unremarkable. No mass. Kidneys and ureters: Unremarkable. No obstructing stones. No hydronephrosis. Stomach and bowel: Unremarkable. No obstruction. No mucosal thickening. PELVIS: Appendix: No findings to suggest acute appendicitis. Bladder: Unremarkable. No stones. Reproductive: Unremarkable as visualized. ABDOMEN and PELVIS: Intraperitoneal space: Mild free fluid in the pelvis. No free air. Bones/joints: No acute fracture. No dislocation. Soft tissues: Unremarkable. Vasculature: Unremarkable. No abdominal aortic aneurysm. Lymph nodes: Unremarkable. No enlarged lymph nodes. IMPRESSION: Mild free fluid in the pelvis. Hepatomegaly.
--- NOTE | 2018-06-05 23:33 | Cardiology Progress Note ---
Assessment/Plan Assessment/Plan 1. Sinus tachycardia, continue hydration, No AV magdy agents is required at this time. 3. Uncontrolled hyperglycemia with hemoglobin A1c of above 13. The patient requires tight blood sugar control. Consider ASA and statins. Subjective Subjective Sinus tachycardia at 101. Objective Last 24 Hour Vital Signs Date Time Temp Pulse Resp B/P (MAP) Pulse Ox O2 Delivery O2 Flow Rate FiO2 06/05/18 22:24 99.6 06/05/18 21:00 Nasal Cannula 3.0 06/05/18 20:08 Mechanical Ventilator 30 06/05/18 20:00 Mechanical Ventilator 30 06/05/18 20:00 99.6 109 26 125/96 (106) 97 99.6 06/05/18 20:00 94.7 110 32 113/95 (101) 94.7 06/05/18 19:00 101 26 127/73 (91) 96 06/05/18 18:55 98 20 Nasal Cannula 3.0 32 06/05/18 18:55 Nasal Cannula 3.0 32 06/05/18 18:55 97 Nasal Cannula 3.0 32 06/05/18 18:15 99.9 06/05/18 18:00 99.8 105 31 139/68 (91) 97 99.8 06/05/18 17:08 99.9 103 29 142/72 (95) 100 99.9 06/05/18 17:00 94.8 94 32 151/62 (91) 94.8 06/05/18 16:00 Nasal Cannula 3.0 06/05/18 16:00 99.9 110 27 127/61 (83) 98 99.9 06/05/18 15:53 102 24 99 Nasal Cannula 2.0 28 06/05/18 15:43 100 23 100 Nasal Cannula 3.0 32 06/05/18 15:00 99.0 100 25 120/70 (87) 100 99.0 06/05/18 14:00 105 26 160/70 (100) 100 18 13:00 102 21 132/62 (85) 100 18 12:13 Nasal Cannula 3.0 32 18 12:13 100 Nasal Cannula 3.0 32 06/05/18 12:05 98.0 101 25 140/74 (96) 100 98.0 06/05/18 12:05 104 20 99 Nasal Cannula 3.0 32 8/17/18 12:00 Nasal Cannula 3.0 06/05/18 11:55 102 24 100 Venturi Mask 10.0 45 06/05/18 11:00 105 27 123/66 (85) 100 06/05/18 10:00 100 22 146/69 (94) 100 06/05/18 09:18 99.8 06/05/18 09:00 116 27 149/69 (95) 100 06/05/18 08:01 Nasal Cannula 3.0 06/05/18 08:00 99.8 118 25 157/73 (101) 100 99.8 06/05/18 08:00 103 16 Room Air 06/05/18 07:00 99.8 104 26 141/71 (94) 100 99.8 06/05/18 06:00 99.8 106 26 132/57 (82) 100 99.8 06/05/18 05:00 99.8 106 26 139/64 (89) 100 99.8 06/05/18 04:00 126 06/05/18 04:00 101.9 106 26 150/74 (99) 100 101.9 06/05/18 02:45 133 06/05/18 02:37 102.0 06/05/18 02:03 102.0 06/05/18 02:00 103.8 154 28 151/93 (112) 86 103.8 06/05/18 01:33 100.2 06/05/18 00:00 101.7 108 18 149/78 (101) 97 101.7 Intake and Output 06/04/18 06/05/18 19:00 07:00 Intake Total 1610 ml 1650 ml Output Total 250 ml Balance 1610 ml 1400 ml Intake Oral 360 ml 800 ml IV Total 700 ml 850 ml Other 550 ml Output Urine Total 250 ml # Voids 6 3 Laboratory Tests Test 06/05/18 03:50 06/05/18 22:10 White Blood Count 8.3 K/UL (4.8-10.8) 10.3 K/UL (4.8-10.8) Red Blood Count 3.00 M/UL (4.20-5.40) L 2.82 M/UL (4.20-5.40) L Hemoglobin 8.9 G/DL (12.0-16.0) L 8.7 G/DL (12.0-16.0) L Hematocrit 26.3 % (37.0-47.0) L 24.4 % (37.0-47.0) L Mean Corpuscular Volume 88 FL (80-99) 87 FL (80-99) Mean Corpuscular Hemoglobin 29.7 PG (27.0-31.0) 30.8 PG (27.0-31.0) Mean Corpuscular Hemoglobin Concent 33.9 G/DL (32.0-36.0) 35.5 G/DL (32.0-36.0) Red Cell Distribution Width 11.7 % (11.6-14.8) 11.9 % (11.6-14.8) Platelet Count 176 K/UL (150-450) 185 K/UL (150-450) Mean Platelet Volume 8.5 FL (6.5-10.1) 7.5 FL (6.5-10.1) Neutrophils (%) (Auto) 82.2 % (45.0-75.0) H 68.7 % (45.0-75.0) Lymphocytes (%) (Auto) 5.9 % (20.0-45.0) L 15.1 % (20.0-45.0) L Monocytes (%) (Auto) 11.4 % (1.0-10.0) H 15.1 % (1.0-10.0) H Eosinophils (%) (Auto) 0.2 % (0.0-3.0) 0.2 % (0.0-3.0) Basophils (%) (Auto) 0.4 % (0.0-2.0) 0.9 % (0.0-2.0) Sodium Level 130 MMOL/L (136-145) L 137 MMOL/L (136-145) Potassium Level 3.4 MMOL/L (3.5-5.1) L 3.8 MMOL/L (3.5-5.1) Chloride Level 100 MMOL/L (98-107) 105 MMOL/L (98-107) Carbon Dioxide Level 19 MMOL/L (21-32) L 21 MMOL/L (21-32) Anion Gap 11 mmol/L (5-15) 11 mmol/L (5-15) Blood Urea Nitrogen 11 mg/dL (7-18) 10 mg/dL (7-18) Creatinine 0.8 MG/DL (0.55-1.30) 0.8 MG/DL (0.55-1.30) Estimat Glomerular Filtration Rate > 60 mL/min (>60) > 60 mL/min (>60) Glucose Level 379 MG/DL (74-106) H 252 MG/DL (74-106) #H Calcium Level 7.9 MG/DL (8.5-10.1) L 8.4 MG/DL (8.5-10.1) L Total Bilirubin 0.3 MG/DL (0.2-1.0) 0.2 MG/DL (0.2-1.0) Aspartate Amino Transf (AST/SGOT) 22 U/L (15-37) 21 U/L (15-37) Alanine Aminotransferase (ALT/SGPT) 28 U/L (12-78) 28 U/L (12-78) Alkaline Phosphatase 136 U/L (46-116) H 138 U/L (46-116) H Total Protein 6.3 G/DL (6.4-8.2) L 6.5 G/DL (6.4-8.2) Albumin 2.0 G/DL (3.4-5.0) L 1.9 G/DL (3.4-5.0) L Globulin 4.3 g/dL 4.6 g/dL Albumin/Globulin Ratio 0.5 (1.0-2.7) L 0.4 (1.0-2.7) L HIV-1 RNA (PCR) log10 Value Pending HIV-1 RNA Ultraquantitative (PCR) Pending HIV (1&2) Antibody Rapid Negative (NEGATIVE) Negative (NEGATIVE) Microbiology Date/Time Source Procedure Growth Status 06/04/18 10:30 Blood Blood Culture - Preliminary Resulted 06/04/18 00:00 Stool Ordered 06/04/18 09:00 Urine,Clean Catch Urine Culture - Preliminary Gram Negative Bacillus 1 Resulted 06/03/18 08:54 Urine,Clean Catch Urine Culture - Final Escherichia Coli Complete 06/05/18 02:00 Buttock Left Gram Stain - Final Resulted 06/05/18 02:00 Buttock Left Wound Culture Pending Resulted Objective HEENT: Atraumatic and normocephalic. Anicteric. Pupils are equal, round, and reactive to light and accommodation. Extraocular muscles intact. NECK: JVP less than 5 cm. No carotid bruit. Carotid upstroke is 2+ bilaterally. CVS: Normal S1, S2. Tachycardic. No murmurs, gallops, or rubs. PMI is at fourth intercostal space in the midclavicular line. LUNGS: Clear to auscultation bilaterally. ABDOMEN: Soft, nontender, and nondistended. No hepatosplenomegaly. Positive bowel sounds. EXTREMITIES: No evidence of edema, clubbing, or cyanosis. Reji Baron MD Jun 05, 2018 23:33
[2018-06-06] VITALS: BP 123/64
[2018-06-06 04:00] VITALS: BP 165/94
[2018-06-06] MEDS: Piperacillin/Tazobactam 3.375 GM in NS 110 ML IVPB SCH ×3 (06:11→22:43)
[2018-06-06] MEDS: NovoLOG Insulin Flexpen SUBQ SCH ×7 (06:40→20:31)
[2018-06-06 07:13] LABS: ANION GAP 15 mmol/L (5-15); BLOOD UREA NITROGEN 10 mg/dL (7-18); CALCIUM 8.9 MG/DL (8.5-10.1); CARBON DIOXIDE 20 MMOL/L (21-32); CHLORIDE 104 MMOL/L (98-107); CREATININE 0.8 MG/DL (0.55-1.30); POTASSIUM 3.9 MMOL/L (3.5-5.1); SODIUM 139 MMOL/L (136-145)
[2018-06-06 07:18] LABS: BASOPHILS % (AUTO) 0.4 % (0.0-2.0); EOSINOPHILS % (AUTO) 0.3 % (0.0-3.0); HEMATOCRIT 24.9 % (37.0-47.0); HEMOGLOBIN 8.3 G/DL (12.0-16.0); LYMPHOCYTES % (AUTO) 19.4 % (20.0-45.0); MEAN CORPUSCULAR VOLUME 87 FL (80-99); MONOCYTES % (AUTO) 12.4 % (1.0-10.0); NEUTROPHILS % (AUTO) 67.6 % (45.0-75.0); PLATELET COUNT 208 K/UL (150-450); RED BLOOD COUNT 2.86 M/UL (4.20-5.40); RED CELL DISTRIBUTION WIDTH 11.9 % (11.6-14.8); WHITE BLOOD COUNT 10.7 K/UL (4.8-10.8)
[2018-06-06 08:00] VITALS: BP 127/57
[2018-06-06] MEDS ORDERED: Vancomycin 1.5gm/D5W 250ml 250 ML IVPB SCH ×2 (08:00→10:00)
--- NOTE | 2018-06-06 09:07 | General Progress Note ---
Assessment/Plan Problem List: (1) Renal insufficiency ICD Codes: N28.9 - Disorder of kidney and ureter, unspecified SNOMED: 283521162, 302645982 (2) Hyponatremia ICD Codes: E87.1 - Hypo-osmolality and hyponatremia SNOMED: 41763607 (3) Diabetes ICD Codes: E11.9 - Type 2 diabetes mellitus without complications SNOMED: 95469406 (4) Hyperglycemia ICD Codes: R73.9 - Hyperglycemia, unspecified SNOMED: 69560456 (5) Fever ICD Codes: R50.9 - Fever, unspecified SNOMED: 812607499 (6) UTI (urinary tract infection) ICD Codes: N39.0 - Urinary tract infection, site not specified SNOMED: 28242180 Status: stable, progressing Assessment/Plan 02 pulm tx abx bs control ot pt diet cbc bmp am dc plan w hh Subjective Constitutional: Reports: weakness Respiratory: Reports: shortness of breath Allergies: Coded Allergies: No Known Allergies (Unverified , 05/27/13) All Systems: reviewed and negative except above Subjective 02 nc calm Objective Last 24 Hour Vital Signs Date Time Temp Pulse Resp B/P (MAP) Pulse Ox O2 Delivery O2 Flow Rate FiO2 06/06/18 06:51 98.9 06/06/18 05:51 165/94 06/06/18 05:51 100.8 06/06/18 04:00 94 06/06/18 04:00 100.6 93 26 165/94 (117) 98 100.6 06/06/18 00:00 100.2 95 22 123/64 (83) 97 100.2 06/06/18 00:00 95 06/05/18 22:24 99.6 06/05/18 21:00 Nasal Cannula 3.0 06/05/18 20:08 Mechanical Ventilator 30 06/05/18 20:00 109 06/05/18 20:00 Mechanical Ventilator 30 06/05/18 20:00 99.6 109 26 125/96 (106) 97 99.6 06/05/18 20:00 94.7 110 32 113/95 (101) 94.7 06/05/18 19:00 101 26 127/73 (91) 96 06/05/18 18:55 98 20 Nasal Cannula 3.0 32 06/05/18 18:55 Nasal Cannula 3.0 32 06/05/18 18:55 97 Nasal Cannula 3.0 32 06/05/18 18:15 99.9 06/05/18 18:00 99.8 105 31 139/68 (91) 97 99.8 06/05/18 17:08 99.9 103 29 142/72 (95) 100 99.9 06/05/18 17:00 94.8 94 32 151/62 (91) 94.8 06/05/18 16:00 Nasal Cannula 3.0 06/05/18 16:00 99.9 110 27 127/61 (83) 98 99.9 06/05/18 15:53 102 24 99 Nasal Cannula 2.0 28 06/05/18 15:43 100 23 100 Nasal Cannula 3.0 32 06/05/18 15:00 99.0 100 25 120/70 (87) 100 99.0 06/05/18 14:00 105 26 160/70 (100) 100 06/05/18 13:00 102 21 132/62 (85) 100 06/05/18 12:13 Nasal Cannula 3.0 32 06/05/18 12:13 100 Nasal Cannula 3.0 32 06/05/18 12:05 98.0 101 25 140/74 (96) 100 98.0 06/05/18 12:05 104 20 99 Nasal Cannula 3.0 32 06/05/18 12:00 Nasal Cannula 3.0 06/05/18 11:55 102 24 100 Venturi Mask 10.0 45 06/05/18 11:00 105 27 123/66 (85) 100 06/05/18 10:00 100 22 146/69 (94) 100 06/05/18 09:18 99.8 Intake and Output 06/05/18 06/06/18 19:00 07:00 Intake Total 1380 ml 200 ml Output Total 1280 ml 175 ml Balance 100 ml 25 ml Intake Oral 1380 ml 200 ml Output Urine Total 1280 ml Hemodialysis UF 175 ml # Voids 1 Laboratory Tests 06/05/18 22:10: White Blood Count 10.3, Red Blood Count 2.82L, Hemoglobin 8.7L, Hematocrit 24.4L , Mean Corpuscular Volume 87, Mean Corpuscular Hemoglobin 30.8, Mean Corpuscular Hemoglobin Concent 35.5, Red Cell Distribution Width 11.9, Platelet Count 185, Mean Platelet Volume 7.5, Neutrophils (%) (Auto) 68.7, Lymphocytes (% ) (Auto) 15.1L, Monocytes (%) (Auto) 15.1H, Eosinophils (%) (Auto) 0.2, Basophils (%) (Auto) 0.9, Sodium Level 137, Potassium Level 3.8, Chloride Level 105, Carbon Dioxide Level 21, Anion Gap 11, Blood Urea Nitrogen 10, Creatinine 0.8, Estimat Glomerular Filtration Rate > 60, Glucose Level 252#H, Calcium Level 8.4L, Total Bilirubin 0.2, Aspartate Amino Transf (AST/SGOT) 21, Alanine Aminotransferase (ALT/SGPT) 28, Alkaline Phosphatase 138H, Total Protein 6.5, Albumin 1.9L, Globulin 4.6, Albumin/Globulin Ratio 0.4L, HIV (1&2) Antibody Rapid Negative 06/06/18 05:30: White Blood Count 10.7, Red Blood Count 2.86L, Hemoglobin 8.3L, Hematocrit 24.9L , Mean Corpuscular Volume 87, Mean Corpuscular Hemoglobin 29.0, Mean Corpuscular Hemoglobin Concent 33.3, Red Cell Distribution Width 11.9, Platelet Count 208, Mean Platelet Volume 8.1, Neutrophils (%) (Auto) 67.6, Lymphocytes (% ) (Auto) 19.4L, Monocytes (%) (Auto) 12.4H, Eosinophils (%) (Auto) 0.3, Basophils (%) (Auto) 0.4, Sodium Level 139, Potassium Level 3.9, Chloride Level 104, Carbon Dioxide Level 20L, Anion Gap 15, Blood Urea Nitrogen 10, Creatinine 0.8, Estimat Glomerular Filtration Rate > 60, Glucose Level 120#H, Calcium Level 8.9 Height (Feet): 4 Height (Inches): 11.00 Weight (Pounds): 192 General Appearance: lethargic EENT: normal ENT inspection Neck: normal alignment Cardiovascular: normal peripheral pulses, normal rate, regular rhythm Respiratory/Chest: chest wall non-tender, decreased breath sounds Abdomen: normal bowel sounds, non tender, soft Extremities: normal inspection Edema: no edema noted Arm (L), no edema noted Arm (R), no edema noted Leg (L), no edema noted Leg (R), no edema noted Pedal (L), no edema noted Pedal (R), no edema noted Generalized Neurologic: responsive, motor weakness Skin: normal pigmentation, warm/dry Yg Bhakta DO Jun 06, 2018 09:07
[2018-06-06] MEDS: Heparin 5000 units/ml inj SUBQ SCH ×2 (09:57→20:30)
[2018-06-06] MEDS: Levemir Flexpen SUBQ SCH ×2 (09:58→20:30)
--- NOTE | 2018-06-06 11:21 | Nephrology Progress Note ---
Assessment/Plan Assessment 1. Hypovolemic hyponatremia. Hyponatremia is as a result of severe hyperglycemia. 2. Anion gap, unknown anion gap acidosis and non-anion gap acidosis most likely due to diarrhea and anion gap as a result of acute renal failure. 3. Uncontrolled diabetes. 4. Hypocalcemia. 5. Dyslipidemia with HDL of 17. 6. Proteinuria, rule out diabetic nephropathy, although the patient denies any current history of diabetic neuropathy. Plan plan d/c ivf breathing treatment check vit d monitoring renal function avoid NSAID Subjective Constitutional: Reports: no symptoms, malaise, weakness HEENT: Reports: no symptoms Genitourinary: Reports: no symptoms Neurologic/Psychiatric: Reports: no symptoms Subjective this morning she c/o cough ,wheezing , Objective Objective Last 24 Hour Vital Signs Date Time Temp Pulse Resp B/P (MAP) Pulse Ox O2 Delivery O2 Flow Rate FiO2 06/06/18 09:00 Nasal Cannula 3.0 06/06/18 07:50 101 20 Nasal Cannula 3.0 32 06/06/18 07:50 Nasal Cannula 3.0 32 06/06/18 07:50 98 Nasal Cannula 3.0 32 06/06/18 06:51 98.9 06/06/18 05:51 165/94 06/06/18 05:51 100.8 06/06/18 04:00 94 06/06/18 04:00 100.6 93 26 165/94 (117) 98 100.6 06/06/18 00:00 100.2 95 22 123/64 (83) 97 100.2 06/06/18 00:00 95 06/05/18 22:24 99.6 06/05/18 21:00 Nasal Cannula 3.0 06/05/18 20:08 Mechanical Ventilator 30 06/05/18 20:00 109 06/05/18 20:00 Mechanical Ventilator 30 06/05/18 20:00 99.6 109 26 125/96 (106) 97 99.6 06/05/18 20:00 94.7 110 32 113/95 (101) 94.7 06/05/18 19:00 101 26 127/73 (91) 96 06/05/18 18:55 98 20 Nasal Cannula 3.0 32 06/05/18 18:55 Nasal Cannula 3.0 32 06/05/18 18:55 97 Nasal Cannula 3.0 32 06/05/18 18:15 99.9 06/05/18 18:00 99.8 105 31 139/68 (91) 97 99.8 06/05/18 17:08 99.9 103 29 142/72 (95) 100 99.9 06/05/18 17:00 94.8 94 32 151/62 (91) 94.8 06/05/18 16:00 Nasal Cannula 3.0 06/05/18 16:00 99.9 110 27 127/61 (83) 98 99.9 06/05/18 15:53 102 24 99 Nasal Cannula 2.0 28 06/05/18 15:43 100 23 100 Nasal Cannula 3.0 32 06/05/18 15:00 99.0 100 25 120/70 (87) 100 99.0 06/05/18 14:00 105 26 160/70 (100) 100 06/05/18 13:00 102 21 132/62 (85) 100 06/05/18 12:13 Nasal Cannula 3.0 32 06/05/18 12:13 100 Nasal Cannula 3.0 32 06/05/18 12:05 98.0 101 25 140/74 (96) 100 98.0 06/05/18 12:05 104 20 99 Nasal Cannula 3.0 32 06/05/18 12:00 Nasal Cannula 3.0 06/05/18 11:55 102 24 100 Venturi Mask 10.0 45 Intake and Output 06/05/18 06/06/18 19:00 07:00 Intake Total 1380 ml 200 ml Output Total 1280 ml 175 ml Balance 100 ml 25 ml Intake Oral 1380 ml 200 ml Output Urine Total 1280 ml Hemodialysis UF 175 ml # Voids 1 Laboratory Tests 06/05/18 22:10: White Blood Count 10.3, Red Blood Count 2.82L, Hemoglobin 8.7L, Hematocrit 24.4L , Mean Corpuscular Volume 87, Mean Corpuscular Hemoglobin 30.8, Mean Corpuscular Hemoglobin Concent 35.5, Red Cell Distribution Width 11.9, Platelet Count 185, Mean Platelet Volume 7.5, Neutrophils (%) (Auto) 68.7, Lymphocytes (% ) (Auto) 15.1L, Monocytes (%) (Auto) 15.1H, Eosinophils (%) (Auto) 0.2, Basophils (%) (Auto) 0.9, Sodium Level 137, Potassium Level 3.8, Chloride Level 105, Carbon Dioxide Level 21, Anion Gap 11, Blood Urea Nitrogen 10, Creatinine 0.8, Estimat Glomerular Filtration Rate > 60, Glucose Level 252#H, Calcium Level 8.4L, Total Bilirubin 0.2, Aspartate Amino Transf (AST/SGOT) 21, Alanine Aminotransferase (ALT/SGPT) 28, Alkaline Phosphatase 138H, Total Protein 6.5, Albumin 1.9L, Globulin 4.6, Albumin/Globulin Ratio 0.4L, HIV (1&2) Antibody Rapid Negative 06/06/18 05:30: White Blood Count 10.7, Red Blood Count 2.86L, Hemoglobin 8.3L, Hematocrit 24.9L , Mean Corpuscular Volume 87, Mean Corpuscular Hemoglobin 29.0, Mean Corpuscular Hemoglobin Concent 33.3, Red Cell Distribution Width 11.9, Platelet Count 208, Mean Platelet Volume 8.1, Neutrophils (%) (Auto) 67.6, Lymphocytes (% ) (Auto) 19.4L, Monocytes (%) (Auto) 12.4H, Eosinophils (%) (Auto) 0.3, Basophils (%) (Auto) 0.4, Sodium Level 139, Potassium Level 3.9, Chloride Level 104, Carbon Dioxide Level 20L, Anion Gap 15, Blood Urea Nitrogen 10, Creatinine 0.8, Estimat Glomerular Filtration Rate > 60, Glucose Level 120#H, Calcium Level 8.9 Height (Feet): 4 Height (Inches): 11.00 Weight (Pounds): 192 Objective HEAD AND NECK: No JVP. No LAD. No thyromegaly. Extraocular movement intact. Pupils are reactive to light and accommodation. LUNGS: wheezing and rhonchi CARDIAC: Regular rate and rhythm. S1 and S2. No murmur. No rub. ABDOMEN: Soft, nontender, and nondistended. No organomegaly. EXTREMITIES: No edema. No clubbing. No cyanosis. Karma Painter MD Jun 06, 2018 11:21
--- NOTE | 2018-06-06 11:46 | Pulmonology Progress Note ---
Assessment/Plan Assessment/Plan ASSESSMENT sepsis with bacteremia pneumonia possible UTI with Escherichia coli mild DKA- initially , -resolved DM OOC hypovolemic hypoNa - resolved acute kidney injury- resolved hypertriglyceridemia obesity PLAN OF CARE Antibiotic ID follows sputum cx -P; urine culture + Escherichia coli ; repeated urine culture P , blood culture gram-positive rods ,repeated gram-negative rods ongoing fevers ,no leukocytosis HIV status negative CT of the head no acute intracranial pathology CT chest with bilateral infiltrates O2 prn titrate, pulmonary toilet CT A/P with HM BS management with premeal short acting insulin and long acting Levemir, SSI prn [id number] not at goal, need tighter BS management as outpt drapery examiner follows monitor renal parameters ,electrolytes ,correct electrolytes as needed, avoid nephrotoxic acute kidney injury and hyponatremia resolved lipid panel with TG > 400, CT A/P with hepatomegaly, likely fatty liver counseled on low-fat low-cholesterol diet add gemfibrozil DVT GI prophylaxis supportive care pain management bowel regimen transfer to CT case discussed and evaluated by supervising physician Subjective Allergies: Coded Allergies: No Known Allergies (Unverified , 05/27/13) Subjective fever this am, no leuk denies chest pain, SOB Objective Last 24 Hour Vital Signs Date Time Temp Pulse Resp B/P (MAP) Pulse Ox O2 Delivery O2 Flow Rate FiO2 06/06/18 09:00 Nasal Cannula 3.0 06/06/18 07:50 101 20 Nasal Cannula 3.0 32 06/06/18 07:50 Nasal Cannula 3.0 32 06/06/18 07:50 98 Nasal Cannula 3.0 32 06/06/18 06:51 98.9 06/06/18 05:51 165/94 06/06/18 05:51 100.8 06/06/18 04:00 94 06/06/18 04:00 100.6 93 26 165/94 (117) 98 100.6 06/06/18 00:00 100.2 95 22 123/64 (83) 97 100.2 06/06/18 00:00 95 06/05/18 22:24 99.6 06/05/18 21:00 Nasal Cannula 3.0 06/05/18 20:08 Mechanical Ventilator 30 06/05/18 20:00 109 06/05/18 20:00 Mechanical Ventilator 30 06/05/18 20:00 99.6 109 26 125/96 (106) 97 99.6 06/05/18 20:00 94.7 110 32 113/95 (101) 94.7 06/05/18 19:00 101 26 127/73 (91) 96 18 18:55 98 20 Nasal Cannula 3.0 32 18 18:55 Nasal Cannula 3.0 32 06/05/18 18:55 97 Nasal Cannula 3.0 32 06/05/18 18:15 99.9 06/05/18 18:00 99.8 105 31 139/68 (91) 97 99.8 06/05/18 17:08 99.9 103 29 142/72 (95) 100 99.9 06/05/18 17:00 94.8 94 32 151/62 (91) 94.8 06/05/18 16:00 Nasal Cannula 3.0 06/05/18 16:00 99.9 110 27 127/61 (83) 98 99.9 06/05/18 15:53 102 24 99 Nasal Cannula 2.0 28 06/05/18 15:43 100 23 100 Nasal Cannula 3.0 32 06/05/18 15:00 99.0 100 25 120/70 (87) 100 99.0 06/05/18 14:00 105 26 160/70 (100) 100 06/05/18 13:00 102 21 132/62 (85) 100 18 12:13 Nasal Cannula 3.0 32 06/05/18 12:13 100 Nasal Cannula 3.0 32 06/05/18 12:05 98.0 101 25 140/74 (96) 100 98.0 06/05/18 12:05 104 20 99 Nasal Cannula 3.0 32 06/05/18 12:00 Nasal Cannula 3.0 06/05/18 11:55 102 24 100 Venturi Mask 10.0 45 Intake and Output 06/05/18 06/06/18 19:00 07:00 Intake Total 1380 ml 200 ml Output Total 1280 ml 175 ml Balance 100 ml 25 ml Intake Oral 1380 ml 200 ml Output Urine Total 1280 ml Hemodialysis UF 175 ml # Voids 1 General Appearance: no acute distress HEENT: normocephalic, atraumatic, anicteric Respiratory/Chest: lungs clear, no respiratory distress, no accessory muscle use Cardiovascular: normal rate, regular rhythm - SR on tele , no JVD Abdomen: normal bowel sounds, soft, non tender - obese Neurologic/Psychiatric: alert, oriented x 3, responsive Musculoskeletal: normal muscle bulk Microbiology Date/Time Source Procedure Growth Status 06/05/18 03:50 Blood Blood Culture - Preliminary Gram Negative Tristian Resulted 06/04/18 10:45 Blood Blood Culture - Preliminary NO GROWTH AFTER 24 HOURS Resulted 06/04/18 10:30 Blood Blood Culture - Preliminary Gram Positive Tristian Resulted 06/05/18 19:00 Sputum Induced Gram Stain - Final Resulted 06/05/18 19:00 Sputum Induced Sputum Culture Pending Resulted 06/04/18 00:00 Stool Ordered 06/05/18 06:30 Urine,Clean Catch Urine Culture - Preliminary Gram Negative Tristian Resulted 06/04/18 09:00 Urine,Clean Catch Urine Culture - Final Escherichia Coli Complete 06/05/18 02:00 Buttock Left Gram Stain - Final Resulted 06/05/18 02:00 Wound Culture - Preliminary Strep Agalactiae Group B Resulted Laboratory Tests 06/05/18 22:10: White Blood Count 10.3, Red Blood Count 2.82L, Hemoglobin 8.7L, Hematocrit 24.4L , Mean Corpuscular Volume 87, Mean Corpuscular Hemoglobin 30.8, Mean Corpuscular Hemoglobin Concent 35.5, Red Cell Distribution Width 11.9, Platelet Count 185, Mean Platelet Volume 7.5, Neutrophils (%) (Auto) 68.7, Lymphocytes (% ) (Auto) 15.1L, Monocytes (%) (Auto) 15.1H, Eosinophils (%) (Auto) 0.2, Basophils (%) (Auto) 0.9, Sodium Level 137, Potassium Level 3.8, Chloride Level 105, Carbon Dioxide Level 21, Anion Gap 11, Blood Urea Nitrogen 10, Creatinine 0.8, Estimat Glomerular Filtration Rate > 60, Glucose Level 252#H, Calcium Level 8.4L, Total Bilirubin 0.2, Aspartate Amino Transf (AST/SGOT) 21, Alanine Aminotransferase (ALT/SGPT) 28, Alkaline Phosphatase 138H, Total Protein 6.5, Albumin 1.9L, Globulin 4.6, Albumin/Globulin Ratio 0.4L, HIV (1&2) Antibody Rapid Negative 06/06/18 05:30: White Blood Count 10.7, Red Blood Count 2.86L, Hemoglobin 8.3L, Hematocrit 24.9L , Mean Corpuscular Volume 87, Mean Corpuscular Hemoglobin 29.0, Mean Corpuscular Hemoglobin Concent 33.3, Red Cell Distribution Width 11.9, Platelet Count 208, Mean Platelet Volume 8.1, Neutrophils (%) (Auto) 67.6, Lymphocytes (% ) (Auto) 19.4L, Monocytes (%) (Auto) 12.4H, Eosinophils (%) (Auto) 0.3, Basophils (%) (Auto) 0.4, Sodium Level 139, Potassium Level 3.9, Chloride Level 104, Carbon Dioxide Level 20L, Anion Gap 15, Blood Urea Nitrogen 10, Creatinine 0.8, Estimat Glomerular Filtration Rate > 60, Glucose Level 120#H, Calcium Level 8.9 Current Medications Medications (Trade) Dose Ordered Sig/Juan Route PRN Reason Start Time Stop Time Status Last Admin Dose Admin Acetaminophen (Tylenol) 650 mg Q4H PRN ORAL Mild Pain/Temp > 100.5 06/05/18 21:06 07/03/18 21:05 06/06/18 05:51 Al Hydroxide/Mg Hydroxide (Mylanta II) 30 ml Q6H PRN ORAL dyspepsia 06/05/18 21:07 07/05/18 21:06 Albuterol/ Ipratropium (Albuterol/ Ipratropium) 3 ml Q4H PRN HHN Shortness of Breath 06/05/18 21:10 06/09/18 21:09 06/06/18 11:25 Clonidine HCl (Catapres Tab) 0.1 mg Q4H PRN ORAL sbp more than 160 06/05/18 21:10 07/04/18 21:09 06/06/18 05:51 Dextrose (Dextrose 50%) 25 ml STAT PRN IV Hypoglycemia 06/05/18 21:07 07/05/18 21:06 Dextrose (Dextrose 50%) 50 ml STAT PRN IV Hypoglycemia 06/05/18 21:07 07/05/18 21:06 Heparin Sodium (Porcine) (Heparin 5000 units/ml) 5,000 units EVERY 12 HOURS SUBQ 06/05/18 21:00 07/03/18 20:59 06/06/18 09:57 Insulin Aspart (NovoLOG) BEFORE MEALS AND HS SUBQ 06/05/18 21:00 07/03/18 20:59 06/06/18 06:40 Insulin Aspart (NovoLOG) 10 units NOVOTIAC SUBQ 06/06/18 06:30 07/04/18 16:49 06/06/18 06:40 Insulin Detemir (Levemir) 20 units Q12H SUBQ 06/05/18 21:00 07/03/18 20:59 06/06/18 09:58 Ketorolac Tromethamine (Toradol 30mg) 30 mg Q4H PRN IV moderate pain 4-6 06/05/18 21:10 06/09/18 21:09 Morphine Sulfate (Morphine Sulfate) 2 mg Q4H PRN IVP severe pain 7-10 06/05/18 21:10 06/11/18 21:09 Nitroglycerin (Ntg) 0.4 mg Q5M X 3 DOSES PRN SL Prn Chest Pain 06/05/18 21:07 07/03/18 21:06 Ondansetron HCl (Zofran) 4 mg Q6H PRN IVP Nausea & Vomiting 06/05/18 21:07 07/05/18 21:06 Piperacillin Sod/ Tazobactam Sod 3.375 gm/Sodium Chloride 110 ml @ 27.5 mls/hr EVERY 8 HOURS IVPB 06/05/18 22:00 06/12/18 21:59 06/06/18 06:11 Polyethylene Glycol (Miralax) 17 gm HSPRN PRN ORAL Constipation 06/05/18 21:08 07/05/18 21:07 Vancomycin HCl (Vanco rx to dose) 1 ea DAILY PRN MISC Per rx protocol 06/05/18 21:08 07/05/18 21:07 Vancomycin HCl/ Dextrose 250 ml @ 125 mls/hr Q24H IVPB 06/06/18 10:00 06/11/18 09:59 06/06/18 09:57 Zolpidem Tartrate (Ambien) 5 mg HSPRN PRN ORAL Insomnia 06/05/18 21:08 06/12/18 21:07 06/05/18 21:55 Latonya Jauregui SIMULATION EDUCATOR Jun 06, 2018 11:46
[2018-06-06 12:00] VITALS: BP 141/78
--- NOTE | 2018-06-06 12:29 | Infectious Diseases Prog Note ---
Assessment/Plan Assessment/Plan Assessment/Plan Ms Ramos is a 53 yo female with PMHx of DM who presented with hyperglycemia, increased thirst and frequency and abdominal cramps. #Sepsis, improving- ?UTI (mild pyuria, no UTI symptoms but Ucx +), possible PNA (normal CXR upon admission; ?fluid vs PNA), Gram positive bacteremia (? contaminant vs real)- r/o listeria (n/v, STATON, sepsis) -CXR 06/05: Interim development of bilateral interstitial disease and focal airspace consolidation-infiltrates versus edema. Small left pleural effusion -CXR 06/04 no acute disease -u/a wbc 5-10; ucx >100K E.coli (lanza S) x2 (06/03,); 06/05 >100k GNR -BCx 06/04 10/23 GPRs; 06/05 11/21 GNRs -HIV ab screen neg; VL p #Gram positive tristian and GNR bacteremia- ?source, UTI, r/o endocarditis (lower suspicion) -CT chest/abd/p: 1Mild to moderate bilateral pleural effusions. Interstitial pulmonary edema. Left greater than right upper lobe infiltrates. Mild free fluid in the pelvis. Hepatomegaly. -CT head: no acute intracranial findings #Headache, SP # Loose stool and Abdominal Cramps - Likely related to hyperglycemia or viral infection. - r/o bacterial GE, cdiff, acute HIV- Diarrhea resolved -Abd US: Negative for gallstones or dilated ducts. Mild hepatomegaly. Equivocally increased hepatic echogenicity, if real could indicate hepatocellular disease such as fatty change. Correlate with liver function tests. Small bilateral pleural effusions -Cdiff, stool cx p (not collected as diarrhea resolved) #Fever, improving #DM/Mild DKA upon presentation PLAN -Cotinue empiric IV Vacomycin and Zosyn #2 pending ID GPR and GNRs Bcx -06/05 SP Meropenem #1 -f/u repeat 2 sets of Bcx -f/u stool cx, Cdiff, HIV VL - BS control - Monitor CBC and Temps -2d Echo Thank you for consulting us for the care of this patient. We will continue to follow with you. Subjective Allergies: Coded Allergies: No Known Allergies (Unverified , 05/27/13) Subjective Transferred to tele Tm 100.6 now w/ gram neg bacteremia Objective Vital Signs Last 24 Hour Vital Signs Date Time Temp Pulse Resp B/P (MAP) Pulse Ox O2 Delivery O2 Flow Rate FiO2 06/06/18 11:40 96 20 99 Nasal Cannula 2.0 28 06/06/18 11:29 94 23 92 Nasal Cannula 2.0 28 06/06/18 09:00 Nasal Cannula 3.0 06/06/18 07:50 101 20 Nasal Cannula 3.0 32 06/06/18 07:50 Nasal Cannula 3.0 32 06/06/18 07:50 98 Nasal Cannula 3.0 32 06/06/18 06:51 98.9 06/06/18 05:51 165/94 06/06/18 05:51 100.8 06/06/18 04:00 94 06/06/18 04:00 100.6 93 26 165/94 (117) 98 100.6 06/06/18 00:00 100.2 95 22 123/64 (83) 97 100.2 06/06/18 00:00 95 06/05/18 22:24 99.6 06/05/18 21:00 Nasal Cannula 3.0 06/05/18 20:08 Mechanical Ventilator 30 06/05/18 20:00 109 06/05/18 20:00 Mechanical Ventilator 30 06/05/18 20:00 99.6 109 26 125/96 (106) 97 99.6 06/05/18 20:00 94.7 110 32 113/95 (101) 94.7 06/05/18 19:00 101 26 127/73 (91) 96 18 18:55 98 20 Nasal Cannula 3.0 32 18 18:55 Nasal Cannula 3.0 32 06/05/18 18:55 97 Nasal Cannula 3.0 32 18 18:15 99.9 18 18:00 99.8 105 31 139/68 (91) 97 99.8 06/05/18 17:08 99.9 103 29 142/72 (95) 100 99.9 06/05/18 17:00 94.8 94 32 151/62 (91) 94.8 06/05/18 16:00 Nasal Cannula 3.0 06/05/18 16:00 99.9 110 27 127/61 (83) 98 99.9 06/05/18 15:53 102 24 99 Nasal Cannula 2.0 28 06/05/18 15:43 100 23 100 Nasal Cannula 3.0 32 06/05/18 15:00 99.0 100 25 120/70 (87) 100 99.0 06/05/18 14:00 105 26 160/70 (100) 100 06/05/18 13:00 102 21 132/62 (85) 100 Height (Feet): 4 Height (Inches): 11.00 Weight (Pounds): 192 Objective Gen: NAD, well appearing, alert HEENT: NCAT, MMM, EOMI, PERRL, No Oral lesion, no scleral icterus NECK: full range of motion, supple, no meningismus, No LAD, No JVD LUNGS: CTAB, No W/C, No Accessory muscle use CARDS: RRR, S1, S2, No M/R/G, ABD: Soft, NT, ND, No R/G, + BS, No HSM, No Masses : Deferred Ext: C/C/E, Pulses 2+ B/L (DP, Rad): NEURO: A/O x 4, Strength and Sensation Grossly intact PSYCH: mood/affect normal SKIN: warm/dry, No rashes, Microbiology Date/Time Source Procedure Growth Status 06/05/18 03:50 Blood Blood Culture - Preliminary Gram Negative Tristian Resulted 06/04/18 10:45 Blood Blood Culture - Preliminary NO GROWTH AFTER 24 HOURS Resulted 06/04/18 10:30 Blood Blood Culture - Preliminary Gram Positive Tristian Resulted 06/05/18 19:00 Sputum Induced Gram Stain - Final Resulted 06/05/18 19:00 Sputum Induced Sputum Culture Pending Resulted 06/04/18 00:00 Stool Ordered 06/05/18 06:30 Urine,Clean Catch Urine Culture - Preliminary Gram Negative Tristian Resulted 06/04/18 09:00 Urine,Clean Catch Urine Culture - Final Escherichia Coli Complete 06/05/18 02:00 Buttock Left Gram Stain - Final Resulted 06/05/18 02:00 Wound Culture - Preliminary Strep Agalactiae Group B Resulted Laboratory Tests Test 06/05/18 22:10 06/06/18 05:30 White Blood Count 10.3 K/UL (4.8-10.8) 10.7 K/UL (4.8-10.8) Red Blood Count 2.82 M/UL (4.20-5.40) L 2.86 M/UL (4.20-5.40) L Hemoglobin 8.7 G/DL (12.0-16.0) L 8.3 G/DL (12.0-16.0) L Hematocrit 24.4 % (37.0-47.0) L 24.9 % (37.0-47.0) L Mean Corpuscular Volume 87 FL (80-99) 87 FL (80-99) Mean Corpuscular Hemoglobin 30.8 PG (27.0-31.0) 29.0 PG (27.0-31.0) Mean Corpuscular Hemoglobin Concent 35.5 G/DL (32.0-36.0) 33.3 G/DL (32.0-36.0) Red Cell Distribution Width 11.9 % (11.6-14.8) 11.9 % (11.6-14.8) Platelet Count 185 K/UL (150-450) 208 K/UL (150-450) Mean Platelet Volume 7.5 FL (6.5-10.1) 8.1 FL (6.5-10.1) Neutrophils (%) (Auto) 68.7 % (45.0-75.0) 67.6 % (45.0-75.0) Lymphocytes (%) (Auto) 15.1 % (20.0-45.0) L 19.4 % (20.0-45.0) L Monocytes (%) (Auto) 15.1 % (1.0-10.0) H 12.4 % (1.0-10.0) H Eosinophils (%) (Auto) 0.2 % (0.0-3.0) 0.3 % (0.0-3.0) Basophils (%) (Auto) 0.9 % (0.0-2.0) 0.4 % (0.0-2.0) Sodium Level 137 MMOL/L (136-145) 139 MMOL/L (136-145) Potassium Level 3.8 MMOL/L (3.5-5.1) 3.9 MMOL/L (3.5-5.1) Chloride Level 105 MMOL/L (98-107) 104 MMOL/L (98-107) Carbon Dioxide Level 21 MMOL/L (21-32) 20 MMOL/L (21-32) L Anion Gap 11 mmol/L (5-15) 15 mmol/L (5-15) Blood Urea Nitrogen 10 mg/dL (7-18) 10 mg/dL (7-18) Creatinine 0.8 MG/DL (0.55-1.30) 0.8 MG/DL (0.55-1.30) Estimat Glomerular Filtration Rate > 60 mL/min (>60) > 60 mL/min (>60) Glucose Level 252 MG/DL (74-106) #H 120 MG/DL (74-106) #H Calcium Level 8.4 MG/DL (8.5-10.1) L 8.9 MG/DL (8.5-10.1) Total Bilirubin 0.2 MG/DL (0.2-1.0) Aspartate Amino Transf (AST/SGOT) 21 U/L (15-37) Alanine Aminotransferase (ALT/SGPT) 28 U/L (12-78) Alkaline Phosphatase 138 U/L (46-116) H Total Protein 6.5 G/DL (6.4-8.2) Albumin 1.9 G/DL (3.4-5.0) L Globulin 4.6 g/dL Albumin/Globulin Ratio 0.4 (1.0-2.7) L HIV (1&2) Antibody Rapid Negative (NEGATIVE) Current Medications Medications (Trade) Dose Ordered Sig/Juan Route PRN Reason Start Time Stop Time Status Last Admin Dose Admin Acetaminophen (Tylenol) 650 mg Q4H PRN ORAL Mild Pain/Temp > 100.5 06/05/18 21:06 07/03/18 21:05 06/06/18 05:51 Al Hydroxide/Mg Hydroxide (Mylanta II) 30 ml Q6H PRN ORAL dyspepsia 06/05/18 21:07 07/05/18 21:06 Albuterol/ Ipratropium (Albuterol/ Ipratropium) 3 ml Q4H PRN HHN Shortness of Breath 06/05/18 21:10 06/09/18 21:09 06/06/18 11:25 Clonidine HCl (Catapres Tab) 0.1 mg Q4H PRN ORAL sbp more than 160 06/05/18 21:10 07/04/18 21:09 8/18/18 05:51 Dextrose (Dextrose 50%) 25 ml STAT PRN IV Hypoglycemia 06/05/18 21:07 07/05/18 21:06 Dextrose (Dextrose 50%) 50 ml STAT PRN IV Hypoglycemia 06/05/18 21:07 07/05/18 21:06 Heparin Sodium (Porcine) (Heparin 5000 units/ml) 5,000 units EVERY 12 HOURS SUBQ 06/05/18 21:00 07/03/18 20:59 06/06/18 09:57 Insulin Aspart (NovoLOG) BEFORE MEALS AND HS SUBQ 06/05/18 21:00 07/03/18 20:59 06/06/18 06:40 Insulin Aspart (NovoLOG) 10 units NOVOTIAC SUBQ 06/06/18 06:30 07/04/18 16:49 06/06/18 06:40 Insulin Detemir (Levemir) 20 units Q12H SUBQ 06/05/18 21:00 07/03/18 20:59 06/06/18 09:58 Ketorolac Tromethamine (Toradol 30mg) 30 mg Q4H PRN IV moderate pain 4-6 06/05/18 21:10 06/09/18 21:09 Morphine Sulfate (Morphine Sulfate) 2 mg Q4H PRN IVP severe pain 7-10 06/05/18 21:10 06/11/18 21:09 Nitroglycerin (Ntg) 0.4 mg Q5M X 3 DOSES PRN SL Prn Chest Pain 06/05/18 21:07 07/03/18 21:06 Ondansetron HCl (Zofran) 4 mg Q6H PRN IVP Nausea & Vomiting 06/05/18 21:07 07/05/18 21:06 Piperacillin Sod/ Tazobactam Sod 3.375 gm/Sodium Chloride 110 ml @ 27.5 mls/hr EVERY 8 HOURS IVPB 06/05/18 22:00 06/12/18 21:59 06/06/18 06:11 Polyethylene Glycol (Miralax) 17 gm HSPRN PRN ORAL Constipation 06/05/18 21:08 07/05/18 21:07 Vancomycin HCl (Vanco rx to dose) 1 ea DAILY PRN MISC Per rx protocol 06/05/18 21:08 07/05/18 21:07 Vancomycin HCl/ Dextrose 250 ml @ 125 mls/hr Q24H IVPB 06/06/18 10:00 06/11/18 09:59 06/06/18 09:57 Zolpidem Tartrate (Ambien) 5 mg HSPRN PRN ORAL Insomnia 06/05/18 21:08 06/12/18 21:07 06/05/18 21:55 Laura Anguiano M.D. Jun 06, 2018 12:29
[2018-06-06 16:00] VITALS: BP 132/78
[2018-06-06] MEDS ORDERED: Miralax 17gm pkt ORAL PRN (16:15)
[2018-06-06] MEDS ORDERED: Mylanta II UD 30ml ORAL PRN (16:15)
[2018-06-06] MEDS ORDERED: Ketorolac 30mg Inj IV PRN (16:15)
[2018-06-06] MEDS ORDERED: Morphine Sulfate 2mg/ml Inj(IV/IM USE ONLY) IVP PRN (16:15)
[2018-06-06] MEDS ORDERED: Nitroglycerin Subl 0.4mg tab SL PRN (16:15)
[2018-06-06 20:00] VITALS: BP 135/71
[2018-06-06] MEDS: Zolpidem 5mg tab ORAL PRN (20:33)
--- NOTE | 2018-06-06 23:41 | Cardiology Progress Note ---
Assessment/Plan Assessment/Plan 1. Sinus tachycardia, resolved, continue hydration, No AV magdy agents is required at this time. 3. Uncontrolled hyperglycemia with hemoglobin A1c of above 13. The patient requires tight blood sugar control. Consider ASA and statins. 3. Sepsis. 4. DKA 5. MARCUS, resolved. Subjective Subjective Transferred to the med-surg unit. Objective Last 24 Hour Vital Signs Date Time Temp Pulse Resp B/P (MAP) Pulse Ox O2 Delivery O2 Flow Rate FiO2 06/06/18 21:00 Nasal Cannula 3.0 06/06/18 20:34 98.4 06/06/18 20:00 98.8 92 20 135/71 (92) 97 98.8 06/06/18 16:00 98.4 132/78 (96) 98.4 06/06/18 15:06 98.9 06/06/18 14:07 98.9 06/06/18 12:00 98.9 94 18 141/78 (99) 99 98.9 06/06/18 12:00 91 06/06/18 11:40 96 20 99 Nasal Cannula 2.0 28 06/06/18 11:29 94 23 92 Nasal Cannula 2.0 28 06/06/18 09:00 Nasal Cannula 3.0 06/06/18 08:00 98.7 92 20 127/57 (80) 98 98.7 06/06/18 08:00 90 06/06/18 07:50 101 20 Nasal Cannula 3.0 32 06/06/18 07:50 Nasal Cannula 3.0 32 06/06/18 07:50 98 Nasal Cannula 3.0 32 06/06/18 06:51 98.9 06/06/18 05:51 165/94 06/06/18 05:51 100.8 06/06/18 04:00 94 06/06/18 04:00 100.6 93 26 165/94 (117) 98 100.6 06/06/18 00:00 100.2 95 22 123/64 (83) 97 100.2 06/06/18 00:00 95 H, Intake and Output 06/05/18 06/06/18 19:00 07:00 Intake Total 1380 ml 200 ml Output Total 1280 ml 175 ml Balance 100 ml 25 ml Intake Oral 1380 ml 200 ml Output Urine Total 1280 ml Hemodialysis UF 175 ml # Voids 1 2D Echo: EF 65%, Mild LVH,Posterior PE,Large Pleural Eff.,RVSP 20 mmHg,Grade I LVDD Laboratory Tests Test 06/06/18 05:30 White Blood Count 10.7 K/UL (4.8-10.8) Red Blood Count 2.86 M/UL (4.20-5.40) L Hemoglobin 8.3 G/DL (12.0-16.0) L Hematocrit 24.9 % (37.0-47.0) L Mean Corpuscular Volume 87 FL (80-99) Mean Corpuscular Hemoglobin 29.0 PG (27.0-31.0) Mean Corpuscular Hemoglobin Concent 33.3 G/DL (32.0-36.0) Red Cell Distribution Width 11.9 % (11.6-14.8) Platelet Count 208 K/UL (150-450) Mean Platelet Volume 8.1 FL (6.5-10.1) Neutrophils (%) (Auto) 67.6 % (45.0-75.0) Lymphocytes (%) (Auto) 19.4 % (20.0-45.0) L Monocytes (%) (Auto) 12.4 % (1.0-10.0) H Eosinophils (%) (Auto) 0.3 % (0.0-3.0) Basophils (%) (Auto) 0.4 % (0.0-2.0) Sodium Level 139 MMOL/L (136-145) Potassium Level 3.9 MMOL/L (3.5-5.1) Chloride Level 104 MMOL/L (98-107) Carbon Dioxide Level 20 MMOL/L (21-32) L Anion Gap 15 mmol/L (5-15) Blood Urea Nitrogen 10 mg/dL (7-18) Creatinine 0.8 MG/DL (0.55-1.30) Estimat Glomerular Filtration Rate > 60 mL/min (>60) Glucose Level 120 MG/DL (74-106) #H Calcium Level 8.9 MG/DL (8.5-10.1) Microbiology Date/Time Source Procedure Growth Status 06/05/18 03:50 Blood Blood Culture - Preliminary Gram Negative Tristian Resulted 06/04/18 10:45 Blood Blood Culture - Preliminary NO GROWTH AFTER 24 HOURS Resulted 06/04/18 10:30 Blood Blood Culture - Preliminary Gram Positive Tristian Resulted 06/05/18 19:00 Sputum Induced Gram Stain - Final Resulted 06/05/18 19:00 Sputum Induced Sputum Culture Pending Resulted 06/04/18 00:00 Stool Ordered 06/05/18 06:30 Urine,Clean Catch Urine Culture - Preliminary Gram Negative Tristian Resulted 06/04/18 09:00 Urine,Clean Catch Urine Culture - Final Escherichia Coli Complete 06/05/18 02:00 Buttock Left Gram Stain - Final Resulted 06/05/18 02:00 Wound Culture - Preliminary Strep Agalactiae Group B Resulted Objective HEENT: Atraumatic and normocephalic. Anicteric. Pupils are equal, round, and reactive to light and accommodation. Extraocular muscles intact. NECK: JVP less than 5 cm. No carotid bruit. Carotid upstroke is 2+ bilaterally. CVS: Normal S1, S2. No murmurs, gallops, or rubs. PMI is at fourth intercostal space in the midclavicular line. LUNGS: Clear to auscultation bilaterally. ABDOMEN: Soft, nontender, and nondistended. No hepatosplenomegaly. Positive bowel sounds. EXTREMITIES: No evidence of edema, clubbing, or cyanosis. Reji Baron MD Jun 06, 2018 23:41
[2018-06-07] VITALS: BP 115/66
[2018-06-07 04:00] VITALS: BP 117/70
[2018-06-07 05:24] LABS: BASOPHILS % (AUTO) 0.8 % (0.0-2.0); EOSINOPHILS % (AUTO) 1.1 % (0.0-3.0); HEMATOCRIT 24.3 % (37.0-47.0); HEMOGLOBIN 8.2 G/DL (12.0-16.0); LYMPHOCYTES % (AUTO) 26.1 % (20.0-45.0); MEAN CORPUSCULAR VOLUME 87 FL (80-99); MONOCYTES % (AUTO) 13.2 % (1.0-10.0); NEUTROPHILS % (AUTO) 58.7 % (45.0-75.0); PLATELET COUNT 224 K/UL (150-450); RED BLOOD COUNT 2.79 M/UL (4.20-5.40); RED CELL DISTRIBUTION WIDTH 11.9 % (11.6-14.8); WHITE BLOOD COUNT 11.5 K/UL (4.8-10.8)
[2018-06-07 05:42] LABS: ANION GAP 10 mmol/L (5-15); BLOOD UREA NITROGEN 12 mg/dL (7-18); CALCIUM 8.4 MG/DL (8.5-10.1); CARBON DIOXIDE 24 MMOL/L (21-32); CHLORIDE 107 MMOL/L (98-107); CREATININE 0.8 MG/DL (0.55-1.30); POTASSIUM 3.9 MMOL/L (3.5-5.1); SODIUM 141 MMOL/L (136-145)
[2018-06-07] MEDS: Piperacillin/Tazobactam 3.375 GM in NS 110 ML IVPB SCH ×3 (05:52→20:59)
[2018-06-07] MEDS: NovoLOG Insulin Flexpen SUBQ SCH ×7 (06:25→21:14)
[2018-06-07 08:00] VITALS: BP 154/75
--- NOTE | 2018-06-07 08:32 | Pulmonology Progress Note ---
Assessment/Plan Assessment/Plan ASSESSMENT sepsis with bacteremia pneumonia possible UTI with Escherichia coli mild DKA- initially , -resolved DM OOC hypovolemic hypoNa - resolved acute kidney injury- resolved hypertriglyceridemia obesity PLAN OF CARE Antibiotic ID follows sputum cx -P; urine culture + Escherichia coli ; repeated urine culture P , blood culture gram-positive rods ,repeated gram-negative rods ongoing fevers ,no leukocytosis HIV status negative CT of the head no acute intracranial pathology CT chest with bilateral infiltrates O2 prn titrate, pulmonary toilet CT A/P with HM BS management with premeal short acting insulin and long acting Levemir, SSI prn [id number] not at goal, 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 monitor renal parameters ,electrolytes ,correct electrolytes as needed, avoid nephrotoxic acute kidney injury and hyponatremia resolved lipid panel with TG > 400, CT A/P woth hepatomegaly, likely fatty liver counseled on low-fat low-cholesterol diet add gemfibrozil DVT GI prophylaxis supportive care pain management bowel regimen transfer to [place] case discussed and evaluated by supervising physician Subjective Allergies: Coded Allergies: No Known Allergies (Unverified , 05/27/13) Subjective fever this am, no leuk denies chest pain, SOB Objective Last 24 Hour Vital Signs Date Time Temp Pulse Resp B/P (MAP) Pulse Ox O2 Delivery O2 Flow Rate FiO2 06/07/18 08:00 98.4 83 20 154/75 (101) 96 98.4 06/07/18 04:00 97.5 77 20 117/70 (86) 97 97.5 06/07/18 00:00 97.3 77 20 115/66 (82) 97 97.3 06/06/18 21:00 Nasal Cannula 3.0 06/06/18 20:34 98.4 06/06/18 20:00 98.8 92 20 135/71 (92) 97 98.8 06/06/18 16:00 98.4 132/78 (96) 98.4 06/06/18 15:06 98.9 06/06/18 14:07 98.9 06/06/18 12:00 98.9 94 18 141/78 (99) 99 98.9 06/06/18 12:00 91 06/06/18 11:40 96 20 99 Nasal Cannula 2.0 28 06/06/18 11:29 94 23 92 Nasal Cannula 2.0 28 06/06/18 09:00 Nasal Cannula 3.0 Intake and Output 06/06/18 06/07/18 19:00 07:00 Intake Total 220 ml 320 ml Balance 220 ml 320 ml Intake Oral 220 ml 320 ml # Voids 2 Objective General Appearance: no acute distress HEENT: normocephalic, atraumatic, anicteric Respiratory/Chest: lungs clear, no respiratory distress, no accessory muscle use Cardiovascular: normal rate, regular rhythm - SR on tele , no JVD Abdomen: normal bowel sounds, soft, non tender - obese Neurologic/Psychiatric: alert, oriented x 3, responsive Musculoskeletal: normal muscle bulk Microbiology Date/Time Source Procedure Growth Status 06/05/18 18:00 Blood Blood Culture - Preliminary NO GROWTH AFTER 24 HOURS Resulted 06/05/18 03:50 Blood Blood Culture - Preliminary Gram Negative Tristian Resulted 06/04/18 10:45 Blood Blood Culture - Preliminary NO GROWTH AFTER 48 HOURS Resulted 06/04/18 10:30 Blood Blood Culture - Final Diphtheroids Complete 06/05/18 19:00 Sputum Induced Gram Stain - Final Resulted 06/05/18 19:00 Sputum Induced Sputum Culture Pending Resulted 06/05/18 06:30 Urine,Clean Catch Urine Culture - Preliminary Gram Negative Tristian Resulted 06/04/18 09:00 Urine,Clean Catch Urine Culture - Final Escherichia Coli Complete 06/05/18 02:00 Buttock Left Gram Stain - Final Complete 06/05/18 02:00 Wound Culture - Final Strep Agalactiae Group B Staphylococcus Sp Coag Neg Complete Laboratory Tests 06/07/18 04:00: White Blood Count 11.5H, Red Blood Count 2.79L, Hemoglobin 8.2L, Hematocrit 24.3L, Mean Corpuscular Volume 87, Mean Corpuscular Hemoglobin 29.4, Mean Corpuscular Hemoglobin Concent 33.7, Red Cell Distribution Width 11.9, Platelet Count 224, Mean Platelet Volume 8.0, Neutrophils (%) (Auto) 58.7, Lymphocytes (% ) (Auto) 26.1, Monocytes (%) (Auto) 13.2H, Eosinophils (%) (Auto) 1.1, Basophils (%) (Auto) 0.8, Sodium Level 141, Potassium Level 3.9, Chloride Level 107, Carbon Dioxide Level 24, Anion Gap 10, Blood Urea Nitrogen 12, Creatinine 0.8, Estimat Glomerular Filtration Rate > 60, Glucose Level 80, Calcium Level 8.4L Current Medications Medications (Trade) Dose Ordered Sig/Juan Route PRN Reason Start Time Stop Time Status Last Admin Dose Admin Acetaminophen (Tylenol) 650 mg Q4H PRN ORAL Mild Pain/Temp > 100.5 06/06/18 16:15 07/03/18 16:14 Al Hydroxide/Mg Hydroxide (Mylanta II) 30 ml Q6H PRN ORAL dyspepsia 06/06/18 16:15 07/05/18 16:14 Albuterol/ Ipratropium (Albuterol/ Ipratropium) 3 ml Q4H PRN HHN Shortness of Breath 06/06/18 16:15 06/09/18 16:14 Clonidine HCl (Catapres Tab) 0.1 mg Q4H PRN ORAL sbp more than 160 06/06/18 16:15 07/04/18 16:14 Dextrose (Dextrose 50%) 25 ml STAT PRN IV Hypoglycemia 06/06/18 16:15 07/05/18 16:14 Dextrose (Dextrose 50%) 50 ml STAT PRN IV Hypoglycemia 06/06/18 16:15 07/05/18 16:14 Heparin Sodium (Porcine) (Heparin 5000 units/ml) 5,000 units EVERY 12 HOURS SUBQ 06/06/18 21:00 07/03/18 20:59 06/06/18 20:30 Ibuprofen (Motrin) 600 mg Q8H PRN ORAL Fever/Headache/Mild Pain 06/06/18 16:15 07/06/18 16:14 06/07/18 07:49 Insulin Aspart (NovoLOG) BEFORE MEALS AND HS SUBQ 06/06/18 16:30 07/03/18 20:59 06/06/18 20:31 Insulin Aspart (NovoLOG) 10 units NOVOTIAC SUBQ 06/06/18 16:50 07/04/18 16:49 06/06/18 17:02 Insulin Detemir (Levemir) 20 units Q12H SUBQ 06/06/18 21:00 07/03/18 20:59 06/06/18 20:30 Ketorolac Tromethamine (Toradol 30mg) 30 mg Q4H PRN IV moderate pain 4-6 06/06/18 16:15 06/09/18 16:14 Morphine Sulfate (Morphine Sulfate) 2 mg Q4H PRN IVP severe pain 7-10 06/06/18 16:15 06/11/18 16:14 Nitroglycerin (Ntg) 0.4 mg Q5M X 3 DOSES PRN SL Prn Chest Pain 06/06/18 16:15 07/03/18 21:06 Ondansetron HCl (Zofran) 4 mg Q6H PRN IVP Nausea & Vomiting 06/06/18 16:15 07/05/18 16:14 Piperacillin Sod/ Tazobactam Sod 3.375 gm/Sodium Chloride 110 ml @ 27.5 mls/hr EVERY 8 HOURS IVPB 06/06/18 22:00 06/12/18 21:59 06/07/18 05:52 Polyethylene Glycol (Miralax) 17 gm HSPRN PRN ORAL Constipation 06/06/18 16:15 07/05/18 16:14 Vancomycin HCl (Vanco rx to dose) 1 ea DAILY PRN MISC Per rx protocol 06/07/18 09:00 07/05/18 21:07 Vancomycin HCl/ Dextrose 250 ml @ 125 mls/hr Q24H IVPB 06/07/18 10:00 06/11/18 09:59 Zolpidem Tartrate (Ambien) 5 mg HSPRN PRN ORAL Insomnia 06/06/18 16:15 06/12/18 16:14 06/06/18 20:33 Latonya Jauregui NP Jun 07, 2018 08:31
[2018-06-07] MEDS: Heparin 5000 units/ml inj SUBQ SCH ×2 (09:13→21:13)
[2018-06-07] MEDS: Levemir Flexpen SUBQ SCH ×2 (09:14→21:13)
[2018-06-07] MEDS: Vancomycin 1.5gm/D5W 250ml 250 ML IVPB SCH (10:04)
--- NOTE | 2018-06-07 10:38 | Pulmonology Progress Note ---
Assessment/Plan Assessment/Plan ASSESSMENT sepsis with bacteremia pneumonia possible UTI with Escherichia coli mild DKA- initially , -resolved DM OOC hypovolemic hypoNa - resolved acute kidney injury- resolved hypertriglyceridemia obesity anemia PLAN OF CARE Antibiotic ID follows sputum cx -negative urine culture + Escherichia coli ; repeated urine culture + E coli blood culture gram-positive rods ,repeated gram-negative rods ( awaiting identification and sensitivity) no leukocytosis HIV status negative CT of the head no acute intracranial pathology CT chest with bilateral infiltrates O2 prn titrate, pulmonary toilet CT A/P with HM BS management with premeal short acting insulin and long acting Levemir, SSI prn [id number] not at goal, 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 monitor renal parameters ,electrolytes ,correct electrolytes as needed, avoid nephrotoxic acute kidney injury and hyponatremia resolved lipid panel with TG > 400, CT A/P with hepatomegaly, likely fatty liver counseled on low-fat low-cholesterol diet add gemfibrozil DVT GI prophylaxis monitor HH with goal to keep Hgb above 7 anemia w/up, stool OB supportive care pain management bowel regimen case discussed and evaluated by supervising physician Subjective Allergies: Coded Allergies: No Known Allergies (Unverified , 05/27/13) Subjective mild leukocytosis, no fever, anemic feeling better denies chest pain, SOB Objective Last 24 Hour Vital Signs Date Time Temp Pulse Resp B/P (MAP) Pulse Ox O2 Delivery O2 Flow Rate FiO2 06/07/18 09:00 Room Air 06/07/18 08:00 98.4 83 20 154/75 (101) 96 98.4 06/07/18 04:00 97.5 77 20 117/70 (86) 97 97.5 06/07/18 00:00 97.3 77 20 115/66 (82) 97 97.3 06/06/18 21:00 Nasal Cannula 3.0 06/06/18 20:34 98.4 06/06/18 20:00 98.8 92 20 135/71 (92) 97 98.8 06/06/18 16:00 98.4 132/78 (96) 98.4 06/06/18 15:06 98.9 06/06/18 14:07 98.9 06/06/18 12:00 98.9 94 18 141/78 (99) 99 98.9 06/06/18 12:00 91 06/06/18 11:40 96 20 99 Nasal Cannula 2.0 28 06/06/18 11:29 94 23 92 Nasal Cannula 2.0 28 Intake and Output 06/06/18 06/07/18 19:00 07:00 Intake Total 220 ml 320 ml Balance 220 ml 320 ml Intake Oral 220 ml 320 ml # Voids 2 Objective General Appearance: no acute distress, awake, alert, oriented female in NAD HEENT: normocephalic, atraumatic, anicteric Respiratory/Chest: lungs clear, no respiratory distress, no accessory muscle use Cardiovascular: normal rate, regular rhythm , no JVD Abdomen: normal bowel sounds, soft, non tender - obese Neurologic/Psychiatric: alert, oriented x 3, responsive Musculoskeletal: normal muscle bulk Microbiology Date/Time Source Procedure Growth Status 06/05/18 18:00 Blood Blood Culture - Preliminary NO GROWTH AFTER 24 HOURS Resulted 06/05/18 03:50 Blood Blood Culture - Preliminary Gram Negative Tristian Resulted 06/04/18 10:45 Blood Blood Culture - Preliminary NO GROWTH AFTER 48 HOURS Resulted 06/05/18 19:00 Sputum Induced Gram Stain - Final Resulted 06/05/18 19:00 Sputum Induced Sputum Culture - Preliminary NORMAL UPPER RESPIRATORY ATIF AT 24 ... Resulted 06/05/18 06:30 Urine,Clean Catch Urine Culture - Final Escherichia Coli Complete 06/05/18 02:00 Buttock Left Gram Stain - Final Complete 06/05/18 02:00 Wound Culture - Final Strep Agalactiae Group B Staphylococcus Sp Coag Neg Complete Laboratory Tests 06/07/18 04:00: White Blood Count 11.5H, Red Blood Count 2.79L, Hemoglobin 8.2L, Hematocrit 24.3L, Mean Corpuscular Volume 87, Mean Corpuscular Hemoglobin 29.4, Mean Corpuscular Hemoglobin Concent 33.7, Red Cell Distribution Width 11.9, Platelet Count 224, Mean Platelet Volume 8.0, Neutrophils (%) (Auto) 58.7, Lymphocytes (% ) (Auto) 26.1, Monocytes (%) (Auto) 13.2H, Eosinophils (%) (Auto) 1.1, Basophils (%) (Auto) 0.8, Sodium Level 141, Potassium Level 3.9, Chloride Level 107, Carbon Dioxide Level 24, Anion Gap 10, Blood Urea Nitrogen 12, Creatinine 0.8, Estimat Glomerular Filtration Rate > 60, Glucose Level 80, Calcium Level 8.4L Current Medications Medications (Trade) Dose Ordered Sig/Juan Route PRN Reason Start Time Stop Time Status Last Admin Dose Admin Acetaminophen (Tylenol) 650 mg Q4H PRN ORAL Mild Pain/Temp > 100.5 06/06/18 16:15 07/03/18 16:14 Al Hydroxide/Mg Hydroxide (Mylanta II) 30 ml Q6H PRN ORAL dyspepsia 06/06/18 16:15 07/05/18 16:14 Albuterol/ Ipratropium (Albuterol/ Ipratropium) 3 ml Q4H PRN HHN Shortness of Breath 06/06/18 16:15 06/09/18 16:14 Clonidine HCl (Catapres Tab) 0.1 mg Q4H PRN ORAL sbp more than 160 06/06/18 16:15 07/04/18 16:14 Dextrose (Dextrose 50%) 25 ml STAT PRN IV Hypoglycemia 06/06/18 16:15 07/05/18 16:14 Dextrose (Dextrose 50%) 50 ml STAT PRN IV Hypoglycemia 06/06/18 16:15 07/05/18 16:14 Heparin Sodium (Porcine) (Heparin 5000 units/ml) 5,000 units EVERY 12 HOURS SUBQ 06/06/18 21:00 07/03/18 20:59 06/07/18 09:13 Ibuprofen (Motrin) 600 mg Q8H PRN ORAL Fever/Headache/Mild Pain 06/06/18 16:15 07/06/18 16:14 06/07/18 07:49 Insulin Aspart (NovoLOG) BEFORE MEALS AND HS SUBQ 06/06/18 16:30 07/03/18 20:59 06/06/18 20:31 Insulin Aspart (NovoLOG) 10 units NOVOTIAC SUBQ 06/06/18 16:50 07/04/18 16:49 06/06/18 17:02 Insulin Detemir (Levemir) 20 units Q12H SUBQ 06/06/18 21:00 07/03/18 20:59 06/07/18 09:14 Ketorolac Tromethamine (Toradol 30mg) 30 mg Q4H PRN IV moderate pain 4-6 06/06/18 16:15 06/09/18 16:14 Morphine Sulfate (Morphine Sulfate) 2 mg Q4H PRN IVP severe pain 7-10 06/06/18 16:15 06/11/18 16:14 Nitroglycerin (Ntg) 0.4 mg Q5M X 3 DOSES PRN SL Prn Chest Pain 06/06/18 16:15 07/03/18 21:06 Ondansetron HCl (Zofran) 4 mg Q6H PRN IVP Nausea & Vomiting 06/06/18 16:15 07/05/18 16:14 Piperacillin Sod/ Tazobactam Sod 3.375 gm/Sodium Chloride 110 ml @ 27.5 mls/hr EVERY 8 HOURS IVPB 06/06/18 22:00 06/12/18 21:59 06/07/18 05:52 Polyethylene Glycol (Miralax) 17 gm HSPRN PRN ORAL Constipation 06/06/18 16:15 07/05/18 16:14 Vancomycin HCl (Vanco rx to dose) 1 ea DAILY PRN MISC Per rx protocol 06/07/18 09:00 07/05/18 21:07 Vancomycin HCl/ Dextrose 250 ml @ 125 mls/hr Q24H IVPB 06/07/18 10:00 06/11/18 09:59 06/07/18 10:04 Zolpidem Tartrate (Ambien) 5 mg HSPRN PRN ORAL Insomnia 06/06/18 16:15 06/12/18 16:14 06/06/18 20:33 Latonya Jauregui NP Jun 07, 2018 10:38
[2018-06-07 11:25] VITALS: BP 140/80
[2018-06-07] MEDS: Albuterol/Ipratropium 3ml neb HHN PRN ×2 (14:12→18:49)
--- NOTE | 2018-06-07 14:49 | General Progress Note ---
Assessment/Plan Problem List: (1) Diabetes ICD Codes: E11.9 - Type 2 diabetes mellitus without complications SNOMED: 98710523 (2) Hyperglycemia ICD Codes: R73.9 - Hyperglycemia, unspecified SNOMED: 82408426 (3) Hyponatremia ICD Codes: E87.1 - Hypo-osmolality and hyponatremia SNOMED: 48287584 (4) Renal insufficiency ICD Codes: N28.9 - Disorder of kidney and ureter, unspecified SNOMED: 304139909, 958187896 Status: progressing Assessment/Plan afebrile reviewed chart and labs no acute events vitals stable dm check sugars Subjective ROS Limited/Unobtainable: Yes Constitutional: Reports: no symptoms Allergies: Coded Allergies: No Known Allergies (Unverified , 05/27/13) Objective Last 24 Hour Vital Signs Date Time Temp Pulse Resp B/P (MAP) Pulse Ox O2 Delivery O2 Flow Rate FiO2 06/07/18 14:21 82 16 95 Room Air 21 06/07/18 14:12 82 18 Nasal Cannula 21 06/07/18 14:12 Room Air 21 06/07/18 14:12 95 Room Air 21 06/07/18 14:12 82 18 95 Room Air 21 06/07/18 11:25 97.3 88 20 140/80 (100) 97 97.3 06/07/18 09:00 Room Air 06/07/18 08:00 98.4 83 20 154/75 (101) 96 98.4 06/07/18 04:00 97.5 77 20 117/70 (86) 97 97.5 06/07/18 00:00 97.3 77 20 115/66 (82) 97 97.3 06/06/18 21:00 Nasal Cannula 3.0 06/06/18 20:34 98.4 06/06/18 20:00 98.8 92 20 135/71 (92) 97 98.8 06/06/18 16:00 98.4 132/78 (96) 98.4 06/06/18 15:06 98.9 Intake and Output 06/06/18 06/07/18 19:00 07:00 Intake Total 220 ml 320 ml Balance 220 ml 320 ml Intake Oral 220 ml 320 ml # Voids 2 Laboratory Tests 06/07/18 04:00: White Blood Count 11.5H, Red Blood Count 2.79L, Hemoglobin 8.2L, Hematocrit 24.3L, Mean Corpuscular Volume 87, Mean Corpuscular Hemoglobin 29.4, Mean Corpuscular Hemoglobin Concent 33.7, Red Cell Distribution Width 11.9, Platelet Count 224, Mean Platelet Volume 8.0, Neutrophils (%) (Auto) 58.7, Lymphocytes (% ) (Auto) 26.1, Monocytes (%) (Auto) 13.2H, Eosinophils (%) (Auto) 1.1, Basophils (%) (Auto) 0.8, Sodium Level 141, Potassium Level 3.9, Chloride Level 107, Carbon Dioxide Level 24, Anion Gap 10, Blood Urea Nitrogen 12, Creatinine 0.8, Estimat Glomerular Filtration Rate > 60, Glucose Level 80, Calcium Level 8.4L Height (Feet): 4 Height (Inches): 11.00 Weight (Pounds): 181 Cardiovascular: normal rate Respiratory/Chest: lungs clear Abdomen: soft Aamir Cardona MD Jun 07, 2018 14:49
[2018-06-07 16:00] VITALS: BP 135/71
[2018-06-07 20:00] VITALS: BP 150/74
[2018-06-07] MEDS: Zolpidem 5mg tab ORAL PRN (21:06)
--- NOTE | 2018-06-07 22:50 | Nephrology Progress Note ---
Assessment/Plan Assessment 1. Hypovolemic hyponatremia. Hyponatremia is as a result of severe hyperglycemia. 2. Anion gap, unknown anion gap acidosis and non-anion gap acidosis most likely due to diarrhea and anion gap as a result of acute renal failure. 3. Uncontrolled diabetes. 4. Hypocalcemia. 5. Dyslipidemia with HDL of 17. 6. Proteinuria, rule out diabetic nephropathy, although the patient denies any current history of diabetic neuropathy. Plan plan d/c ivf breathing treatment check vit d monitoring renal function avoid NSAID Subjective Constitutional: Reports: no symptoms HEENT: Reports: no symptoms Genitourinary: Reports: no symptoms Neurologic/Psychiatric: Reports: no symptoms Subjective this morning she c/o cough ,wheezing , Objective Objective Last 24 Hour Vital Signs Date Time Temp Pulse Resp B/P (MAP) Pulse Ox O2 Delivery O2 Flow Rate FiO2 06/07/18 21:00 Room Air 06/07/18 20:00 99.0 91 20 150/74 (99) 96 99.0 06/07/18 18:58 93 16 99 Room Air 06/07/18 18:51 Room Air 06/07/18 18:51 92 16 97 Room Air 21 06/07/18 18:51 97 Room Air 21 06/07/18 16:00 97.8 86 20 135/71 (92) 98 97.8 06/07/18 14:21 82 16 95 Room Air 06/07/18 14:12 82 18 Nasal Cannula 06/07/18 14:12 Room Air 21 06/07/18 14:12 95 Room Air 06/07/18 14:12 82 18 95 Room Air 06/07/18 11:25 97.3 88 20 140/80 (100) 97 97.3 06/07/18 09:00 Room Air 06/07/18 08:00 98.4 83 20 154/75 (101) 96 98.4 06/07/18 04:00 97.5 77 20 117/70 (86) 97 97.5 06/07/18 00:00 97.3 77 20 115/66 (82) 97 97.3 Intake and Output 06/06/18 06/07/18 19:00 07:00 Intake Total 220 ml 320 ml Balance 220 ml 320 ml Intake Oral 220 ml 320 ml # Voids 2 Laboratory Tests 06/07/18 04:00: White Blood Count 11.5H, Red Blood Count 2.79L, Hemoglobin 8.2L, Hematocrit 24.3L, Mean Corpuscular Volume 87, Mean Corpuscular Hemoglobin 29.4, Mean Corpuscular Hemoglobin Concent 33.7, Red Cell Distribution Width 11.9, Platelet Count 224, Mean Platelet Volume 8.0, Neutrophils (%) (Auto) 58.7, Lymphocytes (% ) (Auto) 26.1, Monocytes (%) (Auto) 13.2H, Eosinophils (%) (Auto) 1.1, Basophils (%) (Auto) 0.8, Sodium Level 141, Potassium Level 3.9, Chloride Level 107, Carbon Dioxide Level 24, Anion Gap 10, Blood Urea Nitrogen 12, Creatinine 0.8, Estimat Glomerular Filtration Rate > 60, Glucose Level 80, Calcium Level 8.4L Height (Feet): 4 Height (Inches): 11.00 Weight (Pounds): 181 Objective HEAD AND NECK: No JVP. No LAD. No thyromegaly. Extraocular movement intact. Pupils are reactive to light and accommodation. LUNGS: wheezing and rhonchi CARDIAC: Regular rate and rhythm. S1 and S2. No murmur. No rub. ABDOMEN: Soft, nontender, and nondistended. No organomegaly. EXTREMITIES: No edema. No clubbing. No cyanosis. Karma Painter MD Jun 07, 2018 22:49
--- NOTE | 2018-06-07 23:47 | Cardiology Progress Note ---
Assessment/Plan Assessment/Plan 1. Sinus tachycardia, resolved, continue hydration, No AV magdy agents is required at this time. 2. Uncontrolled hyperglycemia with hemoglobin A1c of above 13. The patient requires tight blood sugar control. Consider ASA and statins. 3. HTN, small dose of ARBs. 4. DKA 5. MARCUS, resolved. 6. Sepsis. Subjective Subjective Not on the telemetry bed. No cardiac events. Objective Last 24 Hour Vital Signs Date Time Temp Pulse Resp B/P (MAP) Pulse Ox O2 Delivery O2 Flow Rate FiO2 06/07/18 21:00 Room Air 06/07/18 20:00 99.0 91 20 150/74 (99) 96 99.0 06/07/18 18:58 93 16 99 Room Air 06/07/18 18:51 Room Air 06/07/18 18:51 92 16 97 Room Air 21 06/07/18 18:51 97 Room Air 21 06/07/18 16:00 97.8 86 20 135/71 (92) 98 97.8 06/07/18 14:21 82 16 95 Room Air 06/07/18 14:12 82 18 Nasal Cannula 06/07/18 14:12 Room Air 21 06/07/18 14:12 95 Room Air 06/07/18 14:12 82 18 95 Room Air 06/07/18 11:25 97.3 88 20 140/80 (100) 97 97.3 06/07/18 09:00 Room Air 06/07/18 08:00 98.4 83 20 154/75 (101) 96 98.4 06/07/18 04:00 97.5 77 20 117/70 (86) 97 97.5 06/07/18 00:00 97.3 77 20 115/66 (82) 97 97.3 Intake and Output 06/06/18 06/07/18 19:00 07:00 Intake Total 220 ml 320 ml Balance 220 ml 320 ml Intake Oral 220 ml 320 ml # Voids 2 2D Echo: EF 65%, Mild LVH,Posterior PE,Large Pleural Eff.,RVSP 20 mmHg,Grade I LVDD Laboratory Tests Test 06/07/18 04:00 White Blood Count 11.5 K/UL (4.8-10.8) H Red Blood Count 2.79 M/UL (4.20-5.40) L Hemoglobin 8.2 G/DL (12.0-16.0) L Hematocrit 24.3 % (37.0-47.0) L Mean Corpuscular Volume 87 FL (80-99) Mean Corpuscular Hemoglobin 29.4 PG (27.0-31.0) Mean Corpuscular Hemoglobin Concent 33.7 G/DL (32.0-36.0) Red Cell Distribution Width 11.9 % (11.6-14.8) Platelet Count 224 K/UL (150-450) Mean Platelet Volume 8.0 FL (6.5-10.1) Neutrophils (%) (Auto) 58.7 % (45.0-75.0) Lymphocytes (%) (Auto) 26.1 % (20.0-45.0) Monocytes (%) (Auto) 13.2 % (1.0-10.0) H Eosinophils (%) (Auto) 1.1 % (0.0-3.0) Basophils (%) (Auto) 0.8 % (0.0-2.0) Sodium Level 141 MMOL/L (136-145) Potassium Level 3.9 MMOL/L (3.5-5.1) Chloride Level 107 MMOL/L (98-107) Carbon Dioxide Level 24 MMOL/L (21-32) Anion Gap 10 mmol/L (5-15) Blood Urea Nitrogen 12 mg/dL (7-18) Creatinine 0.8 MG/DL (0.55-1.30) Estimat Glomerular Filtration Rate > 60 mL/min (>60) Glucose Level 80 MG/DL (74-106) Calcium Level 8.4 MG/DL (8.5-10.1) L Microbiology Date/Time Source Procedure Growth Status 06/05/18 18:00 Blood Blood Culture - Preliminary NO GROWTH AFTER 24 HOURS Resulted 06/05/18 03:50 Blood Blood Culture - Preliminary Gram Negative Tristian Resulted 06/05/18 19:00 Sputum Induced Gram Stain - Final Resulted 06/05/18 19:00 Sputum Induced Sputum Culture - Preliminary NORMAL UPPER RESPIRATORY ATIF AT 24 ... Resulted 06/05/18 06:30 Urine,Clean Catch Urine Culture - Final Escherichia Coli Complete 06/05/18 02:00 Buttock Left Gram Stain - Final Complete 06/05/18 02:00 Wound Culture - Final Strep Agalactiae Group B Staphylococcus Sp Coag Neg Complete Objective HEENT: Atraumatic and normocephalic. Anicteric. Pupils are equal, round, and reactive to light and accommodation. Extraocular muscles intact. NECK: JVP less than 5 cm. No carotid bruit. Carotid upstroke is 2+ bilaterally. CVS: Normal S1, S2. No murmurs, gallops, or rubs. PMI is at fourth intercostal space in the midclavicular line. LUNGS: Clear to auscultation bilaterally. ABDOMEN: Soft, nontender, and nondistended. No hepatosplenomegaly. Positive bowel sounds. EXTREMITIES: No evidence of edema, clubbing, or cyanosis. Reji Baron MD Jun 07, 2018 23:47
[2018-06-08] VITALS: BP 136/65
--- NOTE | 2018-06-08 03:00 | Geriatric Medicine Prog Note ---
DATE: 06/07/2018 NOTE: POOR AUDIO SUBJECTIVE: The patient is doing much better. She is more comfortable. OBJECTIVE: VITAL SIGNS: Blood pressure 150/74, pulse 91, temperature 99, respiratory rate . LABORATORY DATA: Glucose 214. Liver enzymes . ASSESSMENT: Diabetes mellitus, poor control. Mejia Trinh M.D. DR: YOVANY JOB#: [id number] CC:
[2018-06-08 04:00] VITALS: BP 150/78
[2018-06-08] MEDS: Piperacillin/Tazobactam 3.375 GM in NS 110 ML IVPB SCH (06:30)
[2018-06-08] MEDS: NovoLOG Insulin Flexpen SUBQ SCH ×7 (06:39→20:11)
[2018-06-08 07:34] LABS: HEMATOCRIT 24.6 % (37.0-47.0); HEMOGLOBIN 8.5 G/DL (12.0-16.0); MEAN CORPUSCULAR VOLUME 87 FL (80-99); PLATELET COUNT 284 K/UL (150-450); RED BLOOD COUNT 2.82 M/UL (4.20-5.40); RED CELL DISTRIBUTION WIDTH 12.2 % (11.6-14.8); WHITE BLOOD COUNT 13.2 K/UL (4.8-10.8)
[2018-06-08 07:36] LABS: % IRON SATURATION 22 % (15-50); IRON 43 ug/dL (50-175); TOTAL IRON BINDING CAPACITY 195 ug/dL (250-450)
[2018-06-08 07:43] LABS: ANION GAP 11 mmol/L (5-15); BLOOD UREA NITROGEN 18 mg/dL (7-18); CALCIUM 9.1 MG/DL (8.5-10.1); CARBON DIOXIDE 25 MMOL/L (21-32); CHLORIDE 105 MMOL/L (98-107); CREATININE 1.5 MG/DL (0.55-1.30); FERRITIN 334 NG/ML (8-388); POTASSIUM 4.1 MMOL/L (3.5-5.1); SODIUM 141 MMOL/L (136-145)
[2018-06-08 08:00] VITALS: BP 147/68
[2018-06-08] MEDS: Heparin 5000 units/ml inj SUBQ SCH ×2 (08:38→20:09)
[2018-06-08] MEDS: Levemir Flexpen SUBQ SCH ×2 (08:49→20:10)
[2018-06-08] MEDS: Albuterol/Ipratropium 3ml neb HHN PRN ×2 (10:05→20:26)
[2018-06-08] MEDS: Vancomycin 1.5gm/D5W 250ml 250 ML IVPB SCH (10:42)
--- NOTE | 2018-06-08 11:06 | Pulmonology Progress Note ---
Assessment/Plan Problems: (1) Hyperglycemia (2) Diabetes (3) Fever Assessment/Plan BS better check electrolytes wbc still high BC has Ecoli, pansensitive check wbc in am f/u ID recommendations dvt prophylaxis. Subjective ROS Limited/Unobtainable: No Constitutional: Reports: no symptoms HEENT: Repors: no symptoms Respiratory: Reports: no symptoms Cardiovascular: Reports: no symptoms Gastrointestinal/Abdominal: Reports: no symptoms Allergies: Coded Allergies: No Known Allergies (Unverified , 05/27/13) Objective Last 24 Hour Vital Signs Date Time Temp Pulse Resp B/P (MAP) Pulse Ox O2 Delivery O2 Flow Rate FiO2 06/08/18 10:10 85 16 99 Room Air 21 06/08/18 09:59 Room Air 06/08/18 09:59 95 Room Air 06/08/18 09:59 85 16 95 Room Air 06/08/18 08:00 98.7 91 19 147/68 (94) 97 98.7 06/08/18 04:00 98.5 87 18 150/78 (102) 97 98.5 06/08/18 00:00 98.5 85 20 136/65 (88) 97 98.5 06/07/18 21:00 Room Air 06/07/18 20:00 99.0 91 20 150/74 (99) 96 99.0 06/07/18 18:58 93 16 99 Room Air 06/07/18 18:51 Room Air 06/07/18 18:51 92 16 97 Room Air 06/07/18 18:51 97 Room Air 06/07/18 16:00 97.8 86 20 135/71 (92) 98 97.8 06/07/18 14:21 82 16 95 Room Air 06/07/18 14:12 82 18 Nasal Cannula 06/07/18 14:12 Room Air 06/07/18 14:12 95 Room Air 21 06/07/18 14:12 82 18 95 Room Air 06/07/18 11:25 97.3 88 20 140/80 (100) 97 97.3 Intake and Output 06/07/18 06/08/18 19:00 07:00 Intake Total 1260 ml 470.0 ml Balance 1260 ml 470.0 ml Intake Oral 1260 ml 360 ml IV Total 110.0 ml # Voids 4 # Bowel Movements 1 General Appearance: WD/WN HEENT: normocephalic, atraumatic Respiratory/Chest: chest wall non-tender, lungs clear, normal breath sounds Cardiovascular: normal peripheral pulses, normal rate Abdomen: normal bowel sounds, soft, non tender Extremities: no cyanosis Skin: no rash 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 Lymphatic: no neck adenopathy Microbiology Date/Time Source Procedure Growth Status 06/06/18 12:00 Blood Blood Culture - Preliminary NO GROWTH AFTER 24 HOURS Resulted 06/06/18 11:30 Blood Blood Culture - Preliminary NO GROWTH AFTER 24 HOURS Resulted 06/05/18 18:00 Blood Blood Culture - Preliminary NO GROWTH AFTER 48 HOURS Resulted 06/05/18 19:00 Sputum Induced Gram Stain - Final Complete 06/05/18 19:00 Sputum Induced Sputum Culture - Final NORMAL UPPER RESPIRATORY ATIF PRESENT Complete Laboratory Tests 06/08/18 06:30: Stool Occult Blood Negative 06/08/18 07:10: White Blood Count 13.2H, Red Blood Count 2.82L, Hemoglobin 8.5L, Hematocrit 24.6L, Mean Corpuscular Volume 87, Mean Corpuscular Hemoglobin 30.1, Mean Corpuscular Hemoglobin Concent 34.4, Red Cell Distribution Width 12.2, Platelet Count 284, Mean Platelet Volume 8.0, Neutrophils (%) (Auto) , Lymphocytes (%) ( Auto) , Monocytes (%) (Auto) , Eosinophils (%) (Auto) , Basophils (%) (Auto) , Differential Total Cells Counted 100, Neutrophils % (Manual) 63, Lymphocytes % ( Manual) 26, Monocytes % (Manual) 9, Eosinophils % (Manual) 1, Basophils % ( Manual) 0, Band Neutrophils 1, Platelet Estimate Adequate, Platelet Morphology Normal, Polychromasia 1+, Hypochromasia 1+, Sodium Level 141, Potassium Level 4.1, Chloride Level 105, Carbon Dioxide Level 25, Anion Gap 11, Blood Urea Nitrogen 18, Creatinine 1.5#H, Estimat Glomerular Filtration Rate 36.6, Glucose Level 130H, Calcium Level 9.1, Iron Level 43L, Total Iron Binding Capacity 195L , Percent Iron Saturation 22, Unsaturated Iron Binding 152, Ferritin 334, Vitamin B12 Level 642, RBC Folate Hemolysate [Pending], Red Blood Cell Folate [ Pending], Vancomycin Level Trough 13.0H Current Medications Medications (Trade) Dose Ordered Sig/Juan Route PRN Reason Start Time Stop Time Status Last Admin Dose Admin Acetaminophen (Tylenol) 650 mg Q4H PRN ORAL Mild Pain/Temp > 100.5 06/06/18 16:15 07/03/18 16:14 06/08/18 03:31 Al Hydroxide/Mg Hydroxide (Mylanta II) 30 ml Q6H PRN ORAL dyspepsia 06/06/18 16:15 07/05/18 16:14 Albuterol/ Ipratropium (Albuterol/ Ipratropium) 3 ml Q4H PRN HHN Shortness of Breath 06/06/18 16:15 06/09/18 16:14 06/08/18 10:05 Clonidine HCl (Catapres Tab) 0.1 mg Q4H PRN ORAL sbp more than 160 06/06/18 16:15 07/04/18 16:14 Dextrose (Dextrose 50%) 25 ml STAT PRN IV Hypoglycemia 06/06/18 16:15 07/05/18 16:14 Dextrose (Dextrose 50%) 50 ml STAT PRN IV Hypoglycemia 06/06/18 16:15 07/05/18 16:14 Gemfibrozil (Lopid) 600 mg TWICE A DAY ORAL 06/07/18 18:00 07/07/18 17:59 06/08/18 08:32 Heparin Sodium (Porcine) (Heparin 5000 units/ml) 5,000 units EVERY 12 HOURS SUBQ 06/06/18 21:00 07/03/18 20:59 06/08/18 08:38 Insulin Aspart (NovoLOG) BEFORE MEALS AND HS SUBQ 06/06/18 16:30 07/03/18 20:59 06/08/18 06:40 Insulin Aspart (NovoLOG) 10 units NOVOTIAC SUBQ 06/06/18 16:50 07/04/18 16:49 06/08/18 06:39 Insulin Detemir (Levemir) 20 units Q12H SUBQ 06/06/18 21:00 07/03/18 20:59 06/08/18 08:49 Ketorolac Tromethamine (Toradol 30mg) 30 mg Q4H PRN IV moderate pain 4-6 06/06/18 16:15 06/09/18 16:14 Morphine Sulfate (Morphine Sulfate) 2 mg Q4H PRN IVP severe pain 7-10 06/06/18 16:15 06/11/18 16:14 Nitroglycerin (Ntg) 0.4 mg Q5M X 3 DOSES PRN SL Prn Chest Pain 06/06/18 16:15 07/03/18 21:06 Ondansetron HCl (Zofran) 4 mg Q6H PRN IVP Nausea & Vomiting 06/06/18 16:15 07/05/18 16:14 Piperacillin Sod/ Tazobactam Sod 3.375 gm/Sodium Chloride 110 ml @ 27.5 mls/hr EVERY 8 HOURS IVPB 06/06/18 22:00 06/12/18 21:59 06/08/18 06:30 Polyethylene Glycol (Miralax) 17 gm HSPRN PRN ORAL Constipation 06/06/18 16:15 07/05/18 16:14 Vancomycin HCl (Vanco rx to dose) 1 ea DAILY PRN MISC Per rx protocol 06/07/18 09:00 07/05/18 21:07 Vancomycin HCl/ Dextrose 250 ml @ 125 mls/hr Q24H IVPB 06/07/18 10:00 06/11/18 09:59 06/08/18 10:42 Zolpidem Tartrate (Ambien) 5 mg HSPRN PRN ORAL Insomnia 06/06/18 16:15 06/12/18 16:14 06/07/18 21:06 Barb Prasad MD Jun 08, 2018 11:06
[2018-06-08 12:00] VITALS: BP 151/66
--- NOTE | 2018-06-08 13:16 | Infectious Diseases Prog Note ---
Assessment/Plan Assessment/Plan Assessment/Plan Ms Ramos is a 53 yo female with PMHx of DM who presented with hyperglycemia, increased thirst and frequency and abdominal cramps. #Sepsis, SP- 2ry to UTI c/w bacteremia (mild pyuria, no UTI symptoms but Ucx +) , possible PNA (normal CXR upon admission; ?fluid vs PNA) -CXR 06/05: Interim development of bilateral interstitial disease and focal airspace consolidation-infiltrates versus edema. Small left pleural effusion -CXR 06/04 no acute disease -u/a wbc 5-10; ucx >100K E.coli (lanza S) x2 (06/03,); 06/05 >100k E.coli -BCx 06/04 1/4 Diphteroids; 06/05 2/2 E.coli (lanza S); 06/06 NTD -HIV ab screen neg; VL p #Diptheroids bacteremia, contaminant #E.coli bacteremia- -CT chest/abd/p: 1Mild to moderate bilateral pleural effusions. Interstitial pulmonary edema. Left greater than right upper lobe infiltrates. Mild free fluid in the pelvis. Hepatomegaly. -CT head: no acute intracranial findings -2d Echo: no vegetations #Headache, SP # Loose stool and Abdominal Cramps - Likely related to hyperglycemia or viral infection. - r/o bacterial GE, cdiff, acute HIV- Diarrhea resolved -Abd US: Negative for gallstones or dilated ducts. Mild hepatomegaly. Equivocally increased hepatic echogenicity, if real could indicate hepatocellular disease such as fatty change. Correlate with liver function tests. Small bilateral pleural effusions -Cdiff, stool cx p (not collected as diarrhea resolved) #Fever, SP #MIld leukocytosis #DM/Mild DKA upon presentation PLAN -D/c empiric IV Vacomycin -Switch Zosyn #01/31 to Ceftriaxone 2 gdaily -upon discharge can transition to PO levaquin highest dose renally dose -06/05 SP Meropenem #1 -f/u repeat 2 sets of Bcx -f/u HIV VL - BS control - Monitor CBC and Temps Thank you for consulting us for the care of this patient. We will continue to follow with you. Subjective Allergies: Coded Allergies: No Known Allergies (Unverified , 05/27/13) Subjective afebrile in >48hrs repeat Bcx NTD mild leukocytosis Objective Vital Signs Last 24 Hour Vital Signs Date Time Temp Pulse Resp B/P (MAP) Pulse Ox O2 Delivery O2 Flow Rate FiO2 06/08/18 10:10 85 16 99 Room Air 21 06/08/18 09:59 Room Air 06/08/18 09:59 95 Room Air 21 06/08/18 09:59 85 16 95 Room Air 21 06/08/18 09:00 Room Air 06/08/18 08:00 98.7 91 19 147/68 (94) 97 98.7 06/08/18 04:00 98.5 87 18 150/78 (102) 97 98.5 06/08/18 00:00 98.5 85 20 136/65 (88) 97 98.5 06/07/18 21:00 Room Air 06/07/18 20:00 99.0 91 20 150/74 (99) 96 99.0 06/07/18 18:58 93 16 99 Room Air 06/07/18 18:51 Room Air 06/07/18 18:51 92 16 97 Room Air 06/07/18 18:51 97 Room Air 21 06/07/18 16:00 97.8 86 20 135/71 (92) 98 97.8 06/07/18 14:21 82 16 95 Room Air 06/07/18 14:12 82 18 Nasal Cannula 06/07/18 14:12 Room Air 21 06/07/18 14:12 95 Room Air 21 06/07/18 14:12 82 18 95 Room Air 21 Height (Feet): 4 Height (Inches): 11.00 Weight (Pounds): 184 Objective Gen: NAD, well appearing, alert HEENT: NCAT, MMM, EOMI, PERRL, No Oral lesion, no scleral icterus NECK: full range of motion, supple, no meningismus, No LAD, No JVD LUNGS: CTAB, No W/C, No Accessory muscle use CARDS: RRR, S1, S2, No M/R/G, ABD: Soft, NT, ND, No R/G, + BS, No HSM, No Masses : Deferred Ext: C/C/E, Pulses 2+ B/L (DP, Rad): NEURO: A/O x 4, Strength and Sensation Grossly intact PSYCH: mood/affect normal SKIN: warm/dry, No rashes, Microbiology Date/Time Source Procedure Growth Status 06/06/18 12:00 Blood Blood Culture - Preliminary NO GROWTH AFTER 24 HOURS Resulted 06/06/18 11:30 Blood Blood Culture - Preliminary NO GROWTH AFTER 24 HOURS Resulted 06/05/18 18:00 Blood Blood Culture - Preliminary NO GROWTH AFTER 48 HOURS Resulted 06/05/18 19:00 Sputum Induced Gram Stain - Final Complete 06/05/18 19:00 Sputum Induced Sputum Culture - Final NORMAL UPPER RESPIRATORY ATIF PRESENT Complete Laboratory Tests Test 06/08/18 06:30 06/08/18 07:10 Stool Occult Blood Negative (NEGATIVE) White Blood Count 13.2 K/UL (4.8-10.8) H Red Blood Count 2.82 M/UL (4.20-5.40) L Hemoglobin 8.5 G/DL (12.0-16.0) L Hematocrit 24.6 % (37.0-47.0) L Mean Corpuscular Volume 87 FL (80-99) Mean Corpuscular Hemoglobin 30.1 PG (27.0-31.0) Mean Corpuscular Hemoglobin Concent 34.4 G/DL (32.0-36.0) Red Cell Distribution Width 12.2 % (11.6-14.8) Platelet Count 284 K/UL (150-450) Mean Platelet Volume 8.0 FL (6.5-10.1) Neutrophils (%) (Auto) % (45.0-75.0) Lymphocytes (%) (Auto) % (20.0-45.0) Monocytes (%) (Auto) % (1.0-10.0) Eosinophils (%) (Auto) % (0.0-3.0) Basophils (%) (Auto) % (0.0-2.0) Differential Total Cells Counted 100 Neutrophils % (Manual) 63 % (45-75) Lymphocytes % (Manual) 26 % (20-45) Monocytes % (Manual) 9 % (1-10) Eosinophils % (Manual) 1 % (0-3) Basophils % (Manual) 0 % (0-2) Band Neutrophils 1 % (0-8) Platelet Estimate Adequate Platelet Morphology Normal Polychromasia 1+ Hypochromasia 1+ Sodium Level 141 MMOL/L (136-145) Potassium Level 4.1 MMOL/L (3.5-5.1) Chloride Level 105 MMOL/L (98-107) Carbon Dioxide Level 25 MMOL/L (21-32) Anion Gap 11 mmol/L (5-15) Blood Urea Nitrogen 18 mg/dL (7-18) Creatinine 1.5 MG/DL (0.55-1.30) #H Estimat Glomerular Filtration Rate 36.6 mL/min (>60) Glucose Level 130 MG/DL (74-106) H Calcium Level 9.1 MG/DL (8.5-10.1) Iron Level 43 ug/dL (50-175) L Total Iron Binding Capacity 195 ug/dL (250-450) L Percent Iron Saturation 22 % (15-50) Unsaturated Iron Binding 152 ug/dL (112-346) Ferritin 334 NG/ML (8-388) Vitamin B12 Level 642 PG/ML (193-986) RBC Folate Hemolysate Pending Red Blood Cell Folate Pending Vancomycin Level Trough 13.0 ug/mL (5.0-12.0) H Current Medications Medications (Trade) Dose Ordered Sig/Juan Route PRN Reason Start Time Stop Time Status Last Admin Dose Admin Acetaminophen (Tylenol) 650 mg Q4H PRN ORAL Mild Pain/Temp > 100.5 06/06/18 16:15 07/03/18 16:14 06/08/18 03:31 Al Hydroxide/Mg Hydroxide (Mylanta II) 30 ml Q6H PRN ORAL dyspepsia 06/06/18 16:15 07/05/18 16:14 Albuterol/ Ipratropium (Albuterol/ Ipratropium) 3 ml Q4H PRN HHN Shortness of Breath 06/06/18 16:15 06/09/18 16:14 06/08/18 10:05 Clonidine HCl (Catapres Tab) 0.1 mg Q4H PRN ORAL sbp more than 160 06/06/18 16:15 07/04/18 16:14 Dextrose (Dextrose 50%) 25 ml STAT PRN IV Hypoglycemia 06/06/18 16:15 07/05/18 16:14 Dextrose (Dextrose 50%) 50 ml STAT PRN IV Hypoglycemia 06/06/18 16:15 07/05/18 16:14 Gemfibrozil (Lopid) 600 mg TWICE A DAY ORAL 06/07/18 18:00 07/07/18 17:59 06/08/18 08:32 Heparin Sodium (Porcine) (Heparin 5000 units/ml) 5,000 units EVERY 12 HOURS SUBQ 06/06/18 21:00 07/03/18 20:59 06/08/18 08:38 Insulin Aspart (NovoLOG) BEFORE MEALS AND HS SUBQ 06/06/18 16:30 07/03/18 20:59 06/08/18 12:17 Insulin Aspart (NovoLOG) 10 units NOVOTIAC SUBQ 06/06/18 16:50 07/04/18 16:49 06/08/18 12:18 Insulin Detemir (Levemir) 20 units Q12H SUBQ 06/06/18 21:00 07/03/18 20:59 06/08/18 08:49 Ketorolac Tromethamine (Toradol 30mg) 30 mg Q4H PRN IV moderate pain 4-6 06/06/18 16:15 06/09/18 16:14 Morphine Sulfate (Morphine Sulfate) 2 mg Q4H PRN IVP severe pain 7-10 06/06/18 16:15 06/11/18 16:14 Nitroglycerin (Ntg) 0.4 mg Q5M X 3 DOSES PRN SL Prn Chest Pain 06/06/18 16:15 07/03/18 21:06 Ondansetron HCl (Zofran) 4 mg Q6H PRN IVP Nausea & Vomiting 06/06/18 16:15 07/05/18 16:14 Piperacillin Sod/ Tazobactam Sod 3.375 gm/Sodium Chloride 110 ml @ 27.5 mls/hr EVERY 8 HOURS IVPB 06/06/18 22:00 06/12/18 21:59 06/08/18 06:30 Polyethylene Glycol (Miralax) 17 gm HSPRN PRN ORAL Constipation 06/06/18 16:15 07/05/18 16:14 Vancomycin HCl (Vanco rx to dose) 1 ea DAILY PRN MISC Per rx protocol 06/07/18 09:00 07/05/18 21:07 Vancomycin HCl/ Dextrose 250 ml @ 125 mls/hr Q24H IVPB 06/07/18 10:00 06/11/18 09:59 06/08/18 10:42 Zolpidem Tartrate (Ambien) 5 mg HSPRN PRN ORAL Insomnia 06/06/18 16:15 06/12/18 16:14 06/07/18 21:06 Laura Anguiano M.D. Jun 08, 2018 13:16
[2018-06-08] MEDS ORDERED: cefTRIAXone 2 GM in D5W 55 ML IVPB SCH (15:00)
[2018-06-08 16:00] VITALS: BP 132/64
--- NOTE | 2018-06-08 19:10 | General Progress Note ---
Assessment/Plan Problem List: (1) Diabetes 1.5, managed as type 1 ICD Codes: E13.9 - Other specified diabetes mellitus without complications SNOMED: 768763131 (2) Pneumonia ICD Codes: J18.9 - Pneumonia, unspecified organism SNOMED: 118817550 (3) Renal insufficiency ICD Codes: N28.9 - Disorder of kidney and ureter, unspecified SNOMED: 040273007, [id number] Assessment/Plan continue Levemir 20 units bid continue Novolog 10 units ac tid + SSI Rx for all diabetic supplies left with RN stable for DC home from diabetes stand point Subjective Allergies: Coded Allergies: No Known Allergies (Unverified , 05/27/13) All Systems: reviewed and negative except above Subjective doing fine glucose values in fair control Objective Last 24 Hour Vital Signs Date Time Temp Pulse Resp B/P (MAP) Pulse Ox O2 Delivery O2 Flow Rate FiO2 06/08/18 16:00 98.4 84 20 132/64 (86) 97 98.4 06/08/18 12:00 98.0 85 18 151/66 (94) 97 98.0 06/08/18 10:10 85 16 99 Room Air 21 06/08/18 09:59 Room Air 06/08/18 09:59 95 Room Air 21 06/08/18 09:59 85 16 95 Room Air 21 06/08/18 09:00 Room Air 06/08/18 08:00 98.7 91 19 147/68 (94) 97 98.7 06/08/18 04:00 98.5 87 18 150/78 (102) 97 98.5 06/08/18 00:00 98.5 85 20 136/65 (88) 97 98.5 06/07/18 21:00 Room Air 06/07/18 20:00 99.0 91 20 150/74 (99) 96 99.0 Intake and Output 06/07/18 06/08/18 19:00 07:00 Intake Total 1260 ml 470.0 ml Balance 1260 ml 470.0 ml Intake Oral 1260 ml 360 ml IV Total 110.0 ml # Voids 4 # Bowel Movements 1 Laboratory Tests 06/08/18 06:30: Stool Occult Blood Negative 06/08/18 07:10: White Blood Count 13.2H, Red Blood Count 2.82L, Hemoglobin 8.5L, Hematocrit 24.6L, Mean Corpuscular Volume 87, Mean Corpuscular Hemoglobin 30.1, Mean Corpuscular Hemoglobin Concent 34.4, Red Cell Distribution Width 12.2, Platelet Count 284, Mean Platelet Volume 8.0, Neutrophils (%) (Auto) , Lymphocytes (%) ( Auto) , Monocytes (%) (Auto) , Eosinophils (%) (Auto) , Basophils (%) (Auto) , Differential Total Cells Counted 100, Neutrophils % (Manual) 63, Lymphocytes % ( Manual) 26, Monocytes % (Manual) 9, Eosinophils % (Manual) 1, Basophils % ( Manual) 0, Band Neutrophils 1, Platelet Estimate Adequate, Platelet Morphology Normal, Polychromasia 1+, Hypochromasia 1+, Sodium Level 141, Potassium Level 4.1, Chloride Level 105, Carbon Dioxide Level 25, Anion Gap 11, Blood Urea Nitrogen 18, Creatinine 1.5#H, Estimat Glomerular Filtration Rate 36.6, Glucose Level 130H, Calcium Level 9.1, Iron Level 43L, Total Iron Binding Capacity 195L , Percent Iron Saturation 22, Unsaturated Iron Binding 152, Ferritin 334, Vitamin B12 Level 642, RBC Folate Hemolysate [Pending], Red Blood Cell Folate [ Pending], Vancomycin Level Trough 13.0H Height (Feet): 4 Height (Inches): 11.00 Weight (Pounds): 184 General Appearance: no apparent distress Neck: normal alignment Cardiovascular: normal rate Respiratory/Chest: chest wall non-tender Abdomen: normal bowel sounds Pelvis: normal external exam Objective Item Value Date Time Bedside Blood Glucose 184 mg/dl H 06/08/18 1726 Bedside Blood Glucose 193 mg/dl H 06/08/18 1218 Bedside Blood Glucose 221 mg/dl H 06/08/18 0849 Bedside Blood Glucose 149 mg/dl H 06/08/18 0640 Bedside Blood Glucose 214 mg/dl H 06/07/18 2114 Bedside Blood Glucose 148 mg/dl H 06/07/18 1719 Current Medications Medications (Trade) Dose Ordered Sig/Juan Route PRN Reason Start Time Stop Time Status Last Admin Dose Admin Acetaminophen (Tylenol) 650 mg Q4H PRN ORAL Mild Pain/Temp > 100.5 06/06/18 16:15 07/03/18 16:14 06/08/18 14:04 Al Hydroxide/Mg Hydroxide (Mylanta II) 30 ml Q6H PRN ORAL dyspepsia 06/06/18 16:15 07/05/18 16:14 Albuterol/ Ipratropium (Albuterol/ Ipratropium) 3 ml Q4H PRN HHN Shortness of Breath 06/06/18 16:15 06/09/18 16:14 06/08/18 10:05 Ceftriaxone Sodium 2 gm/ Dextrose 55 ml @ 110 mls/hr Q24H IVPB 06/08/18 15:00 06/15/18 14:59 06/08/18 15:45 Clonidine HCl (Catapres Tab) 0.1 mg Q4H PRN ORAL sbp more than 160 06/06/18 16:15 07/04/18 16:14 Dextrose (Dextrose 50%) 25 ml STAT PRN IV Hypoglycemia 06/06/18 16:15 07/05/18 16:14 Dextrose (Dextrose 50%) 50 ml STAT PRN IV Hypoglycemia 06/06/18 16:15 07/05/18 16:14 Gemfibrozil (Lopid) 600 mg TWICE A DAY ORAL 06/07/18 18:00 07/07/18 17:59 06/08/18 18:31 Heparin Sodium (Porcine) (Heparin 5000 units/ml) 5,000 units EVERY 12 HOURS SUBQ 06/06/18 21:00 07/03/18 20:59 06/08/18 08:38 Insulin Aspart (NovoLOG) BEFORE MEALS AND HS SUBQ 06/06/18 16:30 07/03/18 20:59 06/08/18 17:25 Insulin Aspart (NovoLOG) 10 units NOVOTIAC SUBQ 06/06/18 16:50 07/04/18 16:49 06/08/18 17:26 Insulin Detemir (Levemir) 20 units Q12H SUBQ 06/06/18 21:00 07/03/18 20:59 06/08/18 08:49 Ketorolac Tromethamine (Toradol 30mg) 30 mg Q4H PRN IV moderate pain 4-6 06/06/18 16:15 06/09/18 16:14 Morphine Sulfate (Morphine Sulfate) 2 mg Q4H PRN IVP severe pain 7-10 06/06/18 16:15 06/11/18 16:14 Nitroglycerin (Ntg) 0.4 mg Q5M X 3 DOSES PRN SL Prn Chest Pain 06/06/18 16:15 07/03/18 21:06 Ondansetron HCl (Zofran) 4 mg Q6H PRN IVP Nausea & Vomiting 06/06/18 16:15 07/05/18 16:14 Polyethylene Glycol (Miralax) 17 gm HSPRN PRN ORAL Constipation 06/06/18 16:15 07/05/18 16:14 Zolpidem Tartrate (Ambien) 5 mg HSPRN PRN ORAL Insomnia 06/06/18 16:15 06/12/18 16:14 06/07/18 21:06 Current Medications Medications (Trade) Dose Ordered Sig/Juan Route PRN Reason Start Time Stop Time Status Last Admin Dose Admin Acetaminophen (Tylenol) 650 mg Q4H PRN ORAL Mild Pain/Temp > 100.5 06/06/18 16:15 07/03/18 16:14 06/08/18 14:04 Al Hydroxide/Mg Hydroxide (Mylanta II) 30 ml Q6H PRN ORAL dyspepsia 06/06/18 16:15 07/05/18 16:14 Albuterol/ Ipratropium (Albuterol/ Ipratropium) 3 ml Q4H PRN HHN Shortness of Breath 06/06/18 16:15 06/09/18 16:14 06/08/18 10:05 Ceftriaxone Sodium 2 gm/ Dextrose 55 ml @ 110 mls/hr Q24H IVPB 06/08/18 15:00 06/15/18 14:59 06/08/18 15:45 Clonidine HCl (Catapres Tab) 0.1 mg Q4H PRN ORAL sbp more than 160 06/06/18 16:15 07/04/18 16:14 Dextrose (Dextrose 50%) 25 ml STAT PRN IV Hypoglycemia 06/06/18 16:15 07/05/18 16:14 Dextrose (Dextrose 50%) 50 ml STAT PRN IV Hypoglycemia 06/06/18 16:15 07/05/18 16:14 Gemfibrozil (Lopid) 600 mg TWICE A DAY ORAL 06/07/18 18:00 07/07/18 17:59 06/08/18 18:31 Heparin Sodium (Porcine) (Heparin 5000 units/ml) 5,000 units EVERY 12 HOURS SUBQ 06/06/18 21:00 07/03/18 20:59 06/08/18 08:38 Insulin Aspart (NovoLOG) BEFORE MEALS AND HS SUBQ 06/06/18 16:30 07/03/18 20:59 06/08/18 17:25 Insulin Aspart (NovoLOG) 10 units NOVOTIAC SUBQ 06/06/18 16:50 07/04/18 16:49 06/08/18 17:26 Insulin Detemir (Levemir) 20 units Q12H SUBQ 06/06/18 21:00 07/03/18 20:59 06/08/18 08:49 Ketorolac Tromethamine (Toradol 30mg) 30 mg Q4H PRN IV moderate pain 4-6 06/06/18 16:15 06/09/18 16:14 Morphine Sulfate (Morphine Sulfate) 2 mg Q4H PRN IVP severe pain 7-10 06/06/18 16:15 06/11/18 16:14 Nitroglycerin (Ntg) 0.4 mg Q5M X 3 DOSES PRN SL Prn Chest Pain 06/06/18 16:15 07/03/18 21:06 Ondansetron HCl (Zofran) 4 mg Q6H PRN IVP Nausea & Vomiting 06/06/18 16:15 07/05/18 16:14 Polyethylene Glycol (Miralax) 17 gm HSPRN PRN ORAL Constipation 06/06/18 16:15 07/05/18 16:14 Zolpidem Tartrate (Ambien) 5 mg HSPRN PRN ORAL Insomnia 06/06/18 16:15 06/12/18 16:14 06/07/18 21:06 Diaz Barahona MD Jun 08, 2018 19:10
[2018-06-08 20:00] VITALS: BP 154/76
[2018-06-08] MEDS: Zolpidem 5mg tab ORAL PRN (20:03)
[2018-06-08] MEDS ORDERED: LEVAQUIN750 MG ORAL (22:12)
[2018-06-08] MEDS ORDERED: BLOOD GLUCOSE1 EAC8 MC (22:13)
[2018-06-08] MEDS ORDERED: LEVEMIR FL100 UNIT/2 SQ ×2 (22:16→22:18)
--- NOTE | 2018-06-08 22:17 | General Progress Note ---
Assessment/Plan Problem List: (1) Diabetes ICD Codes: E11.9 - Type 2 diabetes mellitus without complications SNOMED: 11173999 (2) Hyperglycemia ICD Codes: R73.9 - Hyperglycemia, unspecified SNOMED: 02626749 (3) Hyponatremia ICD Codes: E87.1 - Hypo-osmolality and hyponatremia SNOMED: 94044719 (4) Renal insufficiency ICD Codes: N28.9 - Disorder of kidney and ureter, unspecified SNOMED: 754399701, 514233932 Status: progressing Assessment/Plan afebrile reviewed chart and lab lyte abnormality improved sugars are fluctating Subjective ROS Limited/Unobtainable: Yes Allergies: Coded Allergies: No Known Allergies (Unverified , 05/27/13) Objective Last 24 Hour Vital Signs Date Time Temp Pulse Resp B/P (MAP) Pulse Ox O2 Delivery O2 Flow Rate FiO2 06/08/18 21:00 Room Air 06/08/18 20:32 82 20 99 Room Air 21 06/08/18 20:28 81 20 95 Room Air 21 06/08/18 20:27 95 Room Air 21 06/08/18 20:27 Room Air 21 06/08/18 20:00 98.6 84 17 154/76 (102) 98 98.6 06/08/18 16:00 98.4 84 20 132/64 (86) 97 98.4 06/08/18 12:00 98.0 85 18 151/66 (94) 97 98.0 06/08/18 10:10 85 16 99 Room Air 21 06/08/18 09:59 Room Air 06/08/18 09:59 95 Room Air 21 06/08/18 09:59 85 16 95 Room Air 21 06/08/18 09:00 Room Air 06/08/18 08:00 98.7 91 19 147/68 (94) 97 98.7 06/08/18 04:00 98.5 87 18 150/78 (102) 97 98.5 06/08/18 00:00 98.5 85 20 136/65 (88) 97 98.5 Intake and Output 06/07/18 06/08/18 19:00 07:00 Intake Total 1260 ml 470.0 ml Balance 1260 ml 470.0 ml Intake Oral 1260 ml 360 ml IV Total 110.0 ml # Voids 4 # Bowel Movements 1 Laboratory Tests 06/08/18 06:30: Stool Occult Blood Negative 06/08/18 07:10: White Blood Count 13.2H, Red Blood Count 2.82L, Hemoglobin 8.5L, Hematocrit 24.6L, Mean Corpuscular Volume 87, Mean Corpuscular Hemoglobin 30.1, Mean Corpuscular Hemoglobin Concent 34.4, Red Cell Distribution Width 12.2, Platelet Count 284, Mean Platelet Volume 8.0, Neutrophils (%) (Auto) , Lymphocytes (%) ( Auto) , Monocytes (%) (Auto) , Eosinophils (%) (Auto) , Basophils (%) (Auto) , Differential Total Cells Counted 100, Neutrophils % (Manual) 63, Lymphocytes % ( Manual) 26, Monocytes % (Manual) 9, Eosinophils % (Manual) 1, Basophils % ( Manual) 0, Band Neutrophils 1, Platelet Estimate Adequate, Platelet Morphology Normal, Polychromasia 1+, Hypochromasia 1+, Sodium Level 141, Potassium Level 4.1, Chloride Level 105, Carbon Dioxide Level 25, Anion Gap 11, Blood Urea Nitrogen 18, Creatinine 1.5#H, Estimat Glomerular Filtration Rate 36.6, Glucose Level 130H, Calcium Level 9.1, Iron Level 43L, Total Iron Binding Capacity 195L , Percent Iron Saturation 22, Unsaturated Iron Binding 152, Ferritin 334, Vitamin B12 Level 642, RBC Folate Hemolysate [Pending], Red Blood Cell Folate [ Pending], Vancomycin Level Trough 13.0H Height (Feet): 4 Height (Inches): 11.00 Weight (Pounds): 184 Aamir Cardona MD Jun 08, 2018 22:17
--- NOTE | 2018-06-08 23:51 | Cardiology Progress Note ---
Assessment/Plan Assessment/Plan 1. Sinus tachycardia, resolved, continue hydration, No AV magdy agents is required at this time. 2. Uncontrolled hyperglycemia with hemoglobin A1c of above 13. The patient requires tight blood sugar control. Consider ASA and statins. 3. HTN, small dose of ARBs. 4. DKA 5. MARCUS, resolved. 6. Sepsis. Subjective Subjective Not on the telemetry bed. No cardiac events. Objective Last 24 Hour Vital Signs Date Time Temp Pulse Resp B/P (MAP) Pulse Ox O2 Delivery O2 Flow Rate FiO2 06/08/18 21:00 Room Air 06/08/18 20:32 82 20 99 Room Air 21 06/08/18 20:28 81 20 95 Room Air 21 06/08/18 20:27 95 Room Air 21 06/08/18 20:27 Room Air 21 06/08/18 20:00 98.6 84 17 154/76 (102) 98 98.6 06/08/18 16:00 98.4 84 20 132/64 (86) 97 98.4 06/08/18 12:00 98.0 85 18 151/66 (94) 97 98.0 06/08/18 10:10 85 16 99 Room Air 21 06/08/18 09:59 Room Air 06/08/18 09:59 95 Room Air 21 06/08/18 09:59 85 16 95 Room Air 21 06/08/18 09:00 Room Air 06/08/18 08:00 98.7 91 19 147/68 (94) 97 98.7 06/08/18 04:00 98.5 87 18 150/78 (102) 97 98.5 06/08/18 00:00 98.5 85 20 136/65 (88) 97 98.5 Intake and Output 06/07/18 06/08/18 19:00 07:00 Intake Total 1260 ml 470.0 ml Balance 1260 ml 470.0 ml Intake Oral 1260 ml 360 ml IV Total 110.0 ml # Voids 4 # Bowel Movements 1 2D Echo: EF 65%, Mild LVH,Posterior PE,Large Pleural Eff.,RVSP 20 mmHg,Grade I LVDD Laboratory Tests Test 06/08/18 06:30 06/08/18 07:10 Stool Occult Blood Negative (NEGATIVE) White Blood Count 13.2 K/UL (4.8-10.8) H Red Blood Count 2.82 M/UL (4.20-5.40) L Hemoglobin 8.5 G/DL (12.0-16.0) L Hematocrit 24.6 % (37.0-47.0) L Mean Corpuscular Volume 87 FL (80-99) Mean Corpuscular Hemoglobin 30.1 PG (27.0-31.0) Mean Corpuscular Hemoglobin Concent 34.4 G/DL (32.0-36.0) Red Cell Distribution Width 12.2 % (11.6-14.8) Platelet Count 284 K/UL (150-450) Mean Platelet Volume 8.0 FL (6.5-10.1) Neutrophils (%) (Auto) % (45.0-75.0) Lymphocytes (%) (Auto) % (20.0-45.0) Monocytes (%) (Auto) % (1.0-10.0) Eosinophils (%) (Auto) % (0.0-3.0) Basophils (%) (Auto) % (0.0-2.0) Differential Total Cells Counted 100 Neutrophils % (Manual) 63 % (45-75) Lymphocytes % (Manual) 26 % (20-45) Monocytes % (Manual) 9 % (1-10) Eosinophils % (Manual) 1 % (0-3) Basophils % (Manual) 0 % (0-2) Band Neutrophils 1 % (0-8) Platelet Estimate Adequate Platelet Morphology Normal Polychromasia 1+ Hypochromasia 1+ Sodium Level 141 MMOL/L (136-145) Potassium Level 4.1 MMOL/L (3.5-5.1) Chloride Level 105 MMOL/L (98-107) Carbon Dioxide Level 25 MMOL/L (21-32) Anion Gap 11 mmol/L (5-15) Blood Urea Nitrogen 18 mg/dL (7-18) Creatinine 1.5 MG/DL (0.55-1.30) #H Estimat Glomerular Filtration Rate 36.6 mL/min (>60) Glucose Level 130 MG/DL (74-106) H Calcium Level 9.1 MG/DL (8.5-10.1) Iron Level 43 ug/dL (50-175) L Total Iron Binding Capacity 195 ug/dL (250-450) L Percent Iron Saturation 22 % (15-50) Unsaturated Iron Binding 152 ug/dL (112-346) Ferritin 334 NG/ML (8-388) Vitamin B12 Level 642 PG/ML (193-986) RBC Folate Hemolysate Pending Red Blood Cell Folate Pending Vancomycin Level Trough 13.0 ug/mL (5.0-12.0) H Microbiology Date/Time Source Procedure Growth Status 06/06/18 12:00 Blood Blood Culture - Preliminary NO GROWTH AFTER 24 HOURS Resulted 06/06/18 11:30 Blood Blood Culture - Preliminary NO GROWTH AFTER 24 HOURS Resulted Objective HEENT: Atraumatic and normocephalic. Anicteric. Pupils are equal, round, and reactive to light and accommodation. Extraocular muscles intact. NECK: JVP less than 5 cm. No carotid bruit. Carotid upstroke is 2+ bilaterally. CVS: Normal S1, S2. No murmurs, gallops, or rubs. PMI is at fourth intercostal space in the midclavicular line. LUNGS: Clear to auscultation bilaterally. ABDOMEN: Soft, nontender, and nondistended. No hepatosplenomegaly. Positive bowel sounds. EXTREMITIES: No evidence of edema, clubbing, or cyanosis. Reji Baron MD Jun 08, 2018 23:51
[2018-06-09] VITALS: BP 152/82
[2018-06-09] MEDS ORDERED: LOPID600 MG ORAL ×3 (02:47→05:16)
[2018-06-09] MEDS: NovoLOG Insulin Flexpen SUBQ SCH ×2 (06:16→06:18)
--- NOTE | 2018-06-09 06:31 | General Progress Note ---
Assessment/Plan Problem List: (1) Diabetes 1.5, managed as type 1 ICD Codes: E13.9 - Other specified diabetes mellitus without complications SNOMED: 572796320 (2) Pneumonia ICD Codes: J18.9 - Pneumonia, unspecified organism SNOMED: 124510591 (3) Renal insufficiency ICD Codes: N28.9 - Disorder of kidney and ureter, unspecified SNOMED: 219994768, 169424081 Assessment/Plan continue Levemir 20 units bid continue Novolog 10 units ac tid + SSI Rx for all diabetic supplies left with RN stable for DC home from diabetes stand point Subjective Allergies: Coded Allergies: No Known Allergies (Unverified , 05/27/13) All Systems: reviewed and negative except above Subjective events noted she was not able to leave last night - daughter couldn't pick her up Objective Last 24 Hour Vital Signs Date Time Temp Pulse Resp B/P (MAP) Pulse Ox O2 Delivery O2 Flow Rate FiO2 06/09/18 00:00 98.7 91 18 152/82 (105) 94 98.7 06/08/18 21:00 Room Air 06/08/18 20:32 82 20 99 Room Air 21 06/08/18 20:28 81 20 95 Room Air 21 06/08/18 20:27 95 Room Air 21 06/08/18 20:27 Room Air 21 06/08/18 20:00 98.6 84 17 154/76 (102) 98 98.6 06/08/18 16:00 98.4 84 20 132/64 (86) 97 98.4 06/08/18 12:00 98.0 85 18 151/66 (94) 97 98.0 06/08/18 10:10 85 16 99 Room Air 21 06/08/18 09:59 Room Air 06/08/18 09:59 95 Room Air 21 06/08/18 09:59 85 16 95 Room Air 21 06/08/18 09:00 Room Air 06/08/18 08:00 98.7 91 19 147/68 (94) 97 98.7 Intake and Output 06/08/18 06/09/18 19:00 07:00 Intake Total 550 ml 320 ml Output Total 0 ml Balance 550 ml 320 ml Intake Oral 550 ml 320 ml Stool Total 0 ml # Voids 6 5 # Bowel Movements 2 Laboratory Tests 06/08/18 07:10: White Blood Count 13.2H, Red Blood Count 2.82L, Hemoglobin 8.5L, Hematocrit 24.6L, Mean Corpuscular Volume 87, Mean Corpuscular Hemoglobin 30.1, Mean Corpuscular Hemoglobin Concent 34.4, Red Cell Distribution Width 12.2, Platelet Count 284, Mean Platelet Volume 8.0, Neutrophils (%) (Auto) , Lymphocytes (%) ( Auto) , Monocytes (%) (Auto) , Eosinophils (%) (Auto) , Basophils (%) (Auto) , Differential Total Cells Counted 100, Neutrophils % (Manual) 63, Lymphocytes % ( Manual) 26, Monocytes % (Manual) 9, Eosinophils % (Manual) 1, Basophils % ( Manual) 0, Band Neutrophils 1, Platelet Estimate Adequate, Platelet Morphology Normal, Polychromasia 1+, Hypochromasia 1+, Sodium Level 141, Potassium Level 4.1, Chloride Level 105, Carbon Dioxide Level 25, Anion Gap 11, Blood Urea Nitrogen 18, Creatinine 1.5#H, Estimat Glomerular Filtration Rate 36.6, Glucose Level 130H, Calcium Level 9.1, Iron Level 43L, Total Iron Binding Capacity 195L , Percent Iron Saturation 22, Unsaturated Iron Binding 152, Ferritin 334, Vitamin B12 Level 642, RBC Folate Hemolysate [Pending], Red Blood Cell Folate [ Pending], Vancomycin Level Trough 13.0H Height (Feet): 4 Height (Inches): 11.00 Weight (Pounds): 183 General Appearance: no apparent distress Neck: normal alignment Cardiovascular: normal rate Respiratory/Chest: lungs clear Abdomen: normal bowel sounds Pelvis: normal external exam Objective Current Medications Medications (Trade) Dose Ordered Sig/Juan Route PRN Reason Start Time Stop Time Status Last Admin Dose Admin Acetaminophen (Tylenol) 650 mg Q4H PRN ORAL Mild Pain/Temp > 100.5 06/06/18 16:15 07/03/18 16:14 06/09/18 00:34 Al Hydroxide/Mg Hydroxide (Mylanta II) 30 ml Q6H PRN ORAL dyspepsia 06/06/18 16:15 07/05/18 16:14 Albuterol/ Ipratropium (Albuterol/ Ipratropium) 3 ml Q4H PRN HHN Shortness of Breath 06/06/18 16:15 06/09/18 16:14 06/08/18 20:26 Ceftriaxone Sodium 2 gm/ Dextrose 55 ml @ 110 mls/hr Q24H IVPB 06/08/18 15:00 06/15/18 14:59 06/08/18 15:45 Clonidine HCl (Catapres Tab) 0.1 mg Q4H PRN ORAL sbp more than 160 06/06/18 16:15 07/04/18 16:14 Dextrose (Dextrose 50%) 25 ml STAT PRN IV Hypoglycemia 06/06/18 16:15 07/05/18 16:14 Dextrose (Dextrose 50%) 50 ml STAT PRN IV Hypoglycemia 06/06/18 16:15 07/05/18 16:14 Gemfibrozil (Lopid) 600 mg TWICE A DAY ORAL 06/07/18 18:00 07/07/18 17:59 06/08/18 18:31 Heparin Sodium (Porcine) (Heparin 5000 units/ml) 5,000 units EVERY 12 HOURS SUBQ 06/06/18 21:00 07/03/18 20:59 06/08/18 20:09 Insulin Aspart (NovoLOG) BEFORE MEALS AND HS SUBQ 06/06/18 16:30 07/03/18 20:59 06/09/18 06:18 Insulin Aspart (NovoLOG) 10 units NOVOTIAC SUBQ 06/06/18 16:50 07/04/18 16:49 06/09/18 06:16 Insulin Detemir (Levemir) 20 units Q12H SUBQ 06/06/18 21:00 07/03/18 20:59 06/08/18 20:10 Ketorolac Tromethamine (Toradol 30mg) 30 mg Q4H PRN IV moderate pain 4-6 06/06/18 16:15 06/09/18 16:14 Morphine Sulfate (Morphine Sulfate) 2 mg Q4H PRN IVP severe pain 7-10 06/06/18 16:15 06/11/18 16:14 Nitroglycerin (Ntg) 0.4 mg Q5M X 3 DOSES PRN SL Prn Chest Pain 06/06/18 16:15 07/03/18 21:06 Ondansetron HCl (Zofran) 4 mg Q6H PRN IVP Nausea & Vomiting 06/06/18 16:15 07/05/18 16:14 Polyethylene Glycol (Miralax) 17 gm HSPRN PRN ORAL Constipation 06/06/18 16:15 07/05/18 16:14 Zolpidem Tartrate (Ambien) 5 mg HSPRN PRN ORAL Insomnia 06/06/18 16:15 06/12/18 16:14 06/08/18 20:03 Item Value Date Time Bedside Blood Glucose 151 mg/dl H 06/09/18 0630 Bedside Blood Glucose 122 mg/dl H 06/08/18 2100 Bedside Blood Glucose 184 mg/dl H 06/08/18 1726 Bedside Blood Glucose 193 mg/dl H 06/08/18 1218 Bedside Blood Glucose 221 mg/dl H 06/08/18 0849 Diaz Barahona MD Jun 09, 2018 06:31
[2018-06-09 08:00] VITALS: BP 168/84
[2018-06-09] MEDS: Heparin 5000 units/ml inj SUBQ SCH (08:02)
[2018-06-09] MEDS: Levemir Flexpen SUBQ SCH (08:02)
[2018-06-09 08:03] LABS: EOSINOPHILS % (AUTO) 1.9 % (0.0-3.0); HEMATOCRIT 26.4 % (37.0-47.0); HEMOGLOBIN 8.7 G/DL (12.0-16.0); LYMPHOCYTES % (AUTO) 17.4 % (20.0-45.0); MEAN CORPUSCULAR VOLUME 88 FL (80-99); MONOCYTES % (AUTO) 6.4 % (1.0-10.0); NEUTROPHILS % (AUTO) 73.3 % (45.0-75.0); PLATELET COUNT 374 K/UL (150-450); RED CELL DISTRIBUTION WIDTH 12.4 % (11.6-14.8); WHITE BLOOD COUNT 13.6 K/UL (4.8-10.8)
[2018-06-09 08:24] LABS: ALANINE AMINOTRANSFERASE 33 U/L (12-78); ALBUMIN 2.2 G/DL (3.4-5.0); ALBUMIN/GLOBULIN RATIO 0.4 (1.0-2.7); ALKALINE PHOSPHATASE 169 U/L (46-116); ANION GAP 10 mmol/L (5-15); ASPARTATE AMINO TRANSFERASE 15 U/L (15-37); BILIRUBIN,TOTAL 0.2 MG/DL (0.2-1.0); BLOOD UREA NITROGEN 12 mg/dL (7-18); CALCIUM 9.7 MG/DL (8.5-10.1); CARBON DIOXIDE 25 MMOL/L (21-32); CHLORIDE 107 MMOL/L (98-107); CREATININE 1.2 MG/DL (0.55-1.30); PHOSPHORUS 5.6 MG/DL (2.5-4.9); SODIUM 142 MMOL/L (136-145)
[2018-06-09] MEDS: Albuterol/Ipratropium 3ml neb HHN PRN (08:53)
[2018-06-09] MEDS ORDERED: Tubing IV Secondary IV ONE ×2 (09:14)
--- NOTE | 2018-06-09 11:41 | Infectious Diseases Prog Note ---
Assessment/Plan Assessment/Plan Assessment/Plan Ms Ramos is a 53 yo female with PMHx of DM who presented with hyperglycemia, increased thirst and frequency and abdominal cramps. #Sepsis, SP- 2ry to UTI c/w bacteremia (mild pyuria, no UTI symptoms but Ucx +) , possible PNA (normal CXR upon admission; ?fluid vs PNA) -CXR 06/05: Interim development of bilateral interstitial disease and focal airspace consolidation-infiltrates versus edema. Small left pleural effusion -CXR 06/04 no acute disease -u/a wbc 5-10; ucx >100K E.coli (lanza S) x2 (06/03,); 06/05 >100k E.coli -BCx 06/04 1/4 Diphteroids; 06/05 2/2 E.coli (lanza S); 06/06 NTD -HIV ab screen neg; VL p #Diptheroids bacteremia, contaminant #E.coli bacteremia- -CT chest/abd/p: 1Mild to moderate bilateral pleural effusions. Interstitial pulmonary edema. Left greater than right upper lobe infiltrates. Mild free fluid in the pelvis. Hepatomegaly. -CT head: no acute intracranial findings -2d Echo: no vegetations #Headache, SP # Loose stool and Abdominal Cramps - Likely related to hyperglycemia or viral infection. - r/o bacterial GE, cdiff, acute HIV- Diarrhea resolved -Abd US: Negative for gallstones or dilated ducts. Mild hepatomegaly. Equivocally increased hepatic echogenicity, if real could indicate hepatocellular disease such as fatty change. Correlate with liver function tests. Small bilateral pleural effusions -Cdiff, stool cx p (not collected as diarrhea resolved) #Fever, SP #MIld leukocytosis- however clinically much improved #DM/Mild DKA upon presentation PLAN -Continue Ceftriaxone 2 g daily abx d#03/02 -upon discharge can transition to PO levaquin highest dose renally dose -06/08 SP IV vancomycin #4, Zosyn #4 -06/05 SP Meropenem #1 -f/u repeat 2 sets of Bcx -f/u HIV VL - BS control - Monitor CBC and Temps Thank you for consulting us for the care of this patient. We will continue to follow with you. Subjective Allergies: Coded Allergies: No Known Allergies (Unverified , 05/27/13) Subjective afebrile in >72hrs repeat Bcx NTD mild leukocytosis; however clinically much improved Objective Vital Signs Last 24 Hour Vital Signs Date Time Temp Pulse Resp B/P (MAP) Pulse Ox O2 Delivery O2 Flow Rate FiO2 06/09/18 09:00 Room Air 06/09/18 08:58 87 20 99 Room Air 21 06/09/18 08:54 85 20 95 Room Air 21 06/09/18 08:03 98.7 06/09/18 08:00 99.2 91 18 168/84 (112) 93 99.2 06/09/18 00:00 98.7 91 18 152/82 (105) 94 98.7 06/08/18 21:00 Room Air 06/08/18 20:32 82 20 99 Room Air 21 06/08/18 20:28 81 20 95 Room Air 21 06/08/18 20:27 95 Room Air 21 06/08/18 20:27 Room Air 21 06/08/18 20:00 98.6 84 17 154/76 (102) 98 98.6 06/08/18 16:00 98.4 84 20 132/64 (86) 97 98.4 06/08/18 12:00 98.0 85 18 151/66 (94) 97 98.0 Height (Feet): 4 Height (Inches): 11.00 Weight (Pounds): 183 Objective Gen: NAD, well appearing, alert HEENT: NCAT, MMM, EOMI, PERRL, No Oral lesion, no scleral icterus NECK: full range of motion, supple, no meningismus, No LAD, No JVD LUNGS: CTAB, No W/C, No Accessory muscle use CARDS: RRR, S1, S2, No M/R/G, ABD: Soft, NT, ND, No R/G, + BS, No HSM, No Masses : Deferred Ext: C/C/E, Pulses 2+ B/L (DP, Rad): NEURO: A/O x 4, Strength and Sensation Grossly intact PSYCH: mood/affect normal SKIN: warm/dry, No rashes, Microbiology Date/Time Source Procedure Growth Status 06/06/18 12:00 Blood Blood Culture - Preliminary NO GROWTH AFTER 48 HOURS Resulted Laboratory Tests Test 06/09/18 07:20 White Blood Count 13.6 K/UL (4.8-10.8) H Red Blood Count 3.00 M/UL (4.20-5.40) L Hemoglobin 8.7 G/DL (12.0-16.0) L Hematocrit 26.4 % (37.0-47.0) L Mean Corpuscular Volume 88 FL (80-99) Mean Corpuscular Hemoglobin 29.1 PG (27.0-31.0) Mean Corpuscular Hemoglobin Concent 33.1 G/DL (32.0-36.0) Red Cell Distribution Width 12.4 % (11.6-14.8) Platelet Count 374 K/UL (150-450) Mean Platelet Volume 7.2 FL (6.5-10.1) Neutrophils (%) (Auto) 73.3 % (45.0-75.0) Lymphocytes (%) (Auto) 17.4 % (20.0-45.0) L Monocytes (%) (Auto) 6.4 % (1.0-10.0) Eosinophils (%) (Auto) 1.9 % (0.0-3.0) Basophils (%) (Auto) 1.0 % (0.0-2.0) Sodium Level 142 MMOL/L (136-145) Potassium Level 4.0 MMOL/L (3.5-5.1) Chloride Level 107 MMOL/L (98-107) Carbon Dioxide Level 25 MMOL/L (21-32) Anion Gap 10 mmol/L (5-15) Blood Urea Nitrogen 12 mg/dL (7-18) Creatinine 1.2 MG/DL (0.55-1.30) Estimat Glomerular Filtration Rate 47.3 mL/min (>60) Glucose Level 135 MG/DL (74-106) H Calcium Level 9.7 MG/DL (8.5-10.1) Phosphorus Level 5.6 MG/DL (2.5-4.9) H Magnesium Level 1.8 MG/DL (1.8-2.4) Total Bilirubin 0.2 MG/DL (0.2-1.0) Aspartate Amino Transf (AST/SGOT) 15 U/L (15-37) Alanine Aminotransferase (ALT/SGPT) 33 U/L (12-78) Alkaline Phosphatase 169 U/L (46-116) H Total Protein 7.1 G/DL (6.4-8.2) Albumin 2.2 G/DL (3.4-5.0) L Globulin 4.9 g/dL Albumin/Globulin Ratio 0.4 (1.0-2.7) L Current Medications Medications (Trade) Dose Ordered Sig/Ujan Route PRN Reason Start Time Stop Time Status Last Admin Dose Admin Acetaminophen (Tylenol) 650 mg Q4H PRN ORAL Mild Pain/Temp > 100.5 06/06/18 16:15 07/03/18 16:14 06/09/18 07:04 Al Hydroxide/Mg Hydroxide (Mylanta II) 30 ml Q6H PRN ORAL dyspepsia 06/06/18 16:15 07/05/18 16:14 Albuterol/ Ipratropium (Albuterol/ Ipratropium) 3 ml Q4H PRN HHN Shortness of Breath 06/06/18 16:15 06/09/18 16:14 06/09/18 08:53 Ceftriaxone Sodium 2 gm/ Dextrose 55 ml @ 110 mls/hr Q24H IVPB 06/08/18 15:00 06/15/18 14:59 06/08/18 15:45 Clonidine HCl (Catapres Tab) 0.1 mg Q4H PRN ORAL sbp more than 160 06/06/18 16:15 07/04/18 16:14 Dextrose (Dextrose 50%) 25 ml STAT PRN IV Hypoglycemia 06/06/18 16:15 07/05/18 16:14 Dextrose (Dextrose 50%) 50 ml STAT PRN IV Hypoglycemia 06/06/18 16:15 07/05/18 16:14 Gemfibrozil (Lopid) 600 mg TWICE A DAY ORAL 06/07/18 18:00 07/07/18 17:59 06/09/18 08:01 Heparin Sodium (Porcine) (Heparin 5000 units/ml) 5,000 units EVERY 12 HOURS SUBQ 06/06/18 21:00 07/03/18 20:59 06/09/18 08:02 Insulin Aspart (NovoLOG) BEFORE MEALS AND HS SUBQ 06/06/18 16:30 07/03/18 20:59 06/09/18 06:18 Insulin Aspart (NovoLOG) 10 units NOVOTIAC SUBQ 06/06/18 16:50 07/04/18 16:49 06/09/18 06:16 Insulin Detemir (Levemir) 20 units Q12H SUBQ 06/06/18 21:00 07/03/18 20:59 06/09/18 08:02 Ketorolac Tromethamine (Toradol 30mg) 30 mg Q4H PRN IV moderate pain 4-6 06/06/18 16:15 06/09/18 16:14 Morphine Sulfate (Morphine Sulfate) 2 mg Q4H PRN IVP severe pain 7-10 06/06/18 16:15 06/11/18 16:14 Nitroglycerin (Ntg) 0.4 mg Q5M X 3 DOSES PRN SL Prn Chest Pain 06/06/18 16:15 07/03/18 21:06 Ondansetron HCl (Zofran) 4 mg Q6H PRN IVP Nausea & Vomiting 06/06/18 16:15 07/05/18 16:14 Polyethylene Glycol (Miralax) 17 gm HSPRN PRN ORAL Constipation 06/06/18 16:15 07/05/18 16:14 Zolpidem Tartrate (Ambien) 5 mg HSPRN PRN ORAL Insomnia 06/06/18 16:15 06/12/18 16:14 06/08/18 20:03 Laura Anguiano M.D. Jun 09, 2018 11:41
--- NOTE | 2018-06-09 23:57 | Cardiology Progress Note ---
Assessment/Plan Assessment/Plan 1. Sinus tachycardia, resolved, continue hydration, No AV magdy agents is required at this time. 2. Uncontrolled DM, consider ASA and statins. 3. HTN, consider small dose of ARB. 4. DKA 5. MARCUS, resolved. 6. Sepsis. Subjective Subjective Not on the telemetry bed. Clinically the same. Objective Last 24 Hour Vital Signs Date Time Temp Pulse Resp B/P (MAP) Pulse Ox O2 Delivery O2 Flow Rate FiO2 06/09/18 09:00 Room Air 06/09/18 08:58 87 20 99 Room Air 21 06/09/18 08:54 85 20 95 Room Air 21 06/09/18 08:03 98.7 06/09/18 08:00 99.2 91 18 168/84 (112) 93 99.2 06/09/18 00:00 98.7 91 18 152/82 (105) 94 98.7 Intake and Output 06/08/18 06/09/18 19:00 07:00 Intake Total 550 ml 320 ml Output Total 0 ml Balance 550 ml 320 ml Intake Oral 550 ml 320 ml Stool Total 0 ml # Voids 6 5 # Bowel Movements 2 2D Echo: EF 65%, Mild LVH,Posterior PE,Large Pleural Eff.,RVSP 20 mmHg,Grade I LVDD Laboratory Tests Test 06/09/18 07:20 White Blood Count 13.6 K/UL (4.8-10.8) H Red Blood Count 3.00 M/UL (4.20-5.40) L Hemoglobin 8.7 G/DL (12.0-16.0) L Hematocrit 26.4 % (37.0-47.0) L Mean Corpuscular Volume 88 FL (80-99) Mean Corpuscular Hemoglobin 29.1 PG (27.0-31.0) Mean Corpuscular Hemoglobin Concent 33.1 G/DL (32.0-36.0) Red Cell Distribution Width 12.4 % (11.6-14.8) Platelet Count 374 K/UL (150-450) Mean Platelet Volume 7.2 FL (6.5-10.1) Neutrophils (%) (Auto) 73.3 % (45.0-75.0) Lymphocytes (%) (Auto) 17.4 % (20.0-45.0) L Monocytes (%) (Auto) 6.4 % (1.0-10.0) Eosinophils (%) (Auto) 1.9 % (0.0-3.0) Basophils (%) (Auto) 1.0 % (0.0-2.0) Sodium Level 142 MMOL/L (136-145) Potassium Level 4.0 MMOL/L (3.5-5.1) Chloride Level 107 MMOL/L (98-107) Carbon Dioxide Level 25 MMOL/L (21-32) Anion Gap 10 mmol/L (5-15) Blood Urea Nitrogen 12 mg/dL (7-18) Creatinine 1.2 MG/DL (0.55-1.30) Estimat Glomerular Filtration Rate 47.3 mL/min (>60) Glucose Level 135 MG/DL (74-106) H Calcium Level 9.7 MG/DL (8.5-10.1) Phosphorus Level 5.6 MG/DL (2.5-4.9) H Magnesium Level 1.8 MG/DL (1.8-2.4) Total Bilirubin 0.2 MG/DL (0.2-1.0) Aspartate Amino Transf (AST/SGOT) 15 U/L (15-37) Alanine Aminotransferase (ALT/SGPT) 33 U/L (12-78) Alkaline Phosphatase 169 U/L (46-116) H Total Protein 7.1 G/DL (6.4-8.2) Albumin 2.2 G/DL (3.4-5.0) L Globulin 4.9 g/dL Albumin/Globulin Ratio 0.4 (1.0-2.7) L Objective HEENT: Atraumatic and normocephalic. Anicteric. Pupils are equal, round, and reactive to light and accommodation. Extraocular muscles intact. NECK: JVP less than 5 cm. No carotid bruit. Carotid upstroke is 2+ bilaterally. CVS: Normal S1, S2. No murmurs, gallops, or rubs. PMI is at fourth intercostal space in the midclavicular line. LUNGS: Clear to auscultation bilaterally. ABDOMEN: Soft, nontender, and nondistended. No hepatosplenomegaly. Positive bowel sounds. EXTREMITIES: No evidence of edema, clubbing, or cyanosis. Reji Baron MD Jun 09, 2018 23:57
--- NOTE | 2018-06-10 11:13 | Cardiology Report ---
APPROVED REPORT EXAM: Two-dimensional and M-mode echocardiogram with Doppler and color Doppler. INDICATION VEGITATION M-Mode DIMENSIONS IVSd1.4 (0.7-1.1cm)Left Atrium (MM)3.4 (1.6-4.0cm) LVDd4.7 (3.5-5.6cm)Aortic Root2.6 (2.0-3.7cm) PWd1.3 (0.7-1.1cm)Aortic Cusp Exc.1.6 (1.5-2.0cm) IVSs1.7 cm LVDs2.6 (2.5-4.0cm) PWs1.8 cm Normal left ventricular chamber size, systolic function and wall motion . Left ventricular ejection fraction estimated to be 65-70% . Mild ventricular hypertrophy by 2-D. Small posterior pericardial effusion. Large pleural effusion present . All other cardiac chamber sizes are within normal limits . Focal aortic valve sclerosis with normal cusp excursion. Mildly Thickened mitral valve leaflets with normal excursion. Mitral annulus and aortic root calcification. Pulmonic valve not well visualized. Normal tricuspid valve structure. IVC dilated at size 2.6 without physiologic collapse, suggestive of increased RA pressure. A color flow and spectral Doppler study was performed and revealed: No aortic regurgitation. Trace mitral regurgitation. Mitral diastolic velocities suggest reduced left ventricular relaxation c/w mild LV diastolic dysfunction (Grade I ). Trace tricuspid regurgitation. Tricuspid systolic velocities suggests peak right ventricular systolic pressure of 20mmHg.
--- NOTE | 2018-06-11 14:26 | Discharge Summary ---
Discharge Summary Discharge Summary _ DATE OF ADMISSION: 06/03/2018 DATE OF DISCHARGE: 06/09/2018 REASON FOR ADMISSION: 53 years old female with past medical history significant for diabetes, hypertension, obesity, presented to emergency department with chief complaint of malacia , nausea , loose bowel movement ,diffuse abdominal cramping. Symptoms were present for 2 days. Patient did not check blood sugar for one month after losing her Accu-Chek machine. She denied fevers and chills. She denied any injury or trauma. No vomiting. No chest pain, no shortness of breath . Upon evaluation in emergency department ,vital signs were stable. Laboratory workup revealed no leukocytosis, hemoglobin 11.2, hematocrit 35.3 . Glucose 867 with anion gap 20 and bicarbonate 13 . Sodium 124. BUN 17, creatinine 1.6. Urinalysis with pyuria and few bacteria. Chest x-ray revealed no acute cardiopulmonary pathology. Patient admitted with diagnosis of hyperglycemia due to diabetes, acute kidney injury, probable UTI, hyponatremia anemia. CONSULTANTS: complaint coordinator Dr. Baron pulmonary Dr. Prasad ID specialist Vince professor of practice potash flaker Dr. Barahona [facility] COURSE: Patient admitted to telemetry floor. Patient started on aggressive hydration and management of mild diabetic ketoacidosis. Blood sugar was managed as per endocrinology recommendations. Patient exhibited recurrent fevers. Patient started on empiric antibiotics. ID consult was requested. Follow-up chest x-ray on 06/05 revealed development of bilateral interstitial disease and focal airspace consolidation - infiltrate versus edema. The patient was on IV antibiotics under ID specialist recommendations. Urine culture revealed Escherichia coli. Initial blood culture showed 1 out of 4 Diphtheroids, likely contamination, as per infectious disease specialist. Follow up blood culture and urine culture both revealed Escherichia coli. Bacteremia was likely secondary to urinary tract infection . Sputum culture was negative. Repeated blood culture on and 06/06 both were negative. Recurrent fevers resolved . CT of the head was done due to recurrent headaches, and revealed no acute intracranial pathology. HIV status was negative. CT of the chest revealed bilateral infiltrates. CT of the abdomen and pelvis revealed hepatomegaly. Supplemental oxygen provided as needed to keep pulse oximetry above 92%. Pulmonary toilet provided as needed. Blood sugar was managed with pre-meal short acting insulin and long-acting Levemir. In addition sliding scaleof insulin was on board as needed. Apartment Leasing Agent closely follow. Hemoglobin A1c - 13.4 , not at goal. Patient will need tighter anti-glycemic control as outpatient. Talent Specialist closely follow. Renal parameters and electrolytes were closely monitored, electrolytes were corrected as needed. Nephrotoxins were avoided. Acute kidney injury and hyponatremia resolved. Lipid panel revealed elevated triglycerides over 400. CT of the abdomen and pelvis revealed hepatomegaly and evidence of hepatocellular disease, likely fatty liver. Patient was counseled on low-fat low-cholesterol diet. Gemfibrozil was added to existing regimen. DVT and GI prophylaxis provided. Hemoglobin and hematocrit were closely monitored with goal to keep hemoglobin above 7. Stool for occult blood was negative. Anemia workup revealed anemia of chronic disease. Supportive care provided. Pain management was addressed. Bowel regimen to dictate instituted. Patient clinically improved : no fevers , though still with leukocytosis, blood sugar normalized. Overall clinically feeling better Antibiotics changed to oral high dose Levaquin as per ID specialist recommendations to complete the course. Patient was stable for discharge home with home health services. FINAL DIAGNOSES: Sepsis with Escherichia coli bacteremia Pneumonia Escherichia coli UTI Mild DKA initially, resolved Diabetes mellitus out of control Hypovolemic hyponatremia, resolved Acute kidney injury, resolved Hypertriglyceridemia Anemia Obesity Proteinuria , possible diabetic nephropathy DISCHARGE MEDICATIONS: See Medication Reconciliation list. DISCHARGE INSTRUCTIONS: Patient was discharged home with home health services. Follow up with primary care provider in one week. I have been assigned to dictate discharge summary for this account. I was not involved in the patient's management. Latonya Jauregui NP Jun 11, 2018 14:26
--- NOTE | 2018-06-12 00:54 | Cardiology Report ---
APPROVED REPORT EKG Measurement Heart [id number] Sinus tachycardia Possible Left atrial enlargement Borderline ECG
== END 2018-06-09 09:15 | disposition home or self-care (01) | DRG 871 ==
LOC: EMR 08:48 → 2E 09:37 → EDBEDREQ 09:59 → 4E 06-04 14:16 → ICU 06-05 03:08 → 2E 06-05 20:52 → 3E 06-06 15:55
DX: A41.9 Sepsis, unspecified organism (principal); J96.00 Acute respiratory failure, unspecified whether with hypoxia or hypercapnia; J18.9 Pneumonia, unspecified organism; E11.10 Type 2 diabetes mellitus with ketoacidosis without coma; E87.1 Hypo-osmolality and hyponatremia; N17.9 Acute kidney failure, unspecified; E87.2 Acidosis; N39.0 Urinary tract infection, site not specified; B96.20 Unspecified Escherichia coli [E. coli] as the cause of diseases classified elsewhere; Z79.4 Long term (current) use of insulin; E83.51 Hypocalcemia; E78.5 Hyperlipidemia, unspecified; R00.0 Tachycardia, unspecified; E66.9 Obesity, unspecified; E78.1 Pure hyperglyceridemia; E11.21 Type 2 diabetes mellitus with diabetic nephropathy
CPT/HCPCS: 36415; 70450; 71045; 71250; 74176; 76700; 80048; 80053; 80061; 80202; 81001; 81003; 82009; 82043; 82044; 82270; 82570; 82607; 82728; 82747; 82962; 83036; 83540; 83550; 83735; 84100; 84300; 84443; 85007; 85025; 86703; 87040; 87070; 87086; 87181; 87205; 87536; 89050; 93005; 93306; 94640; 94664; 94760; 97803; J1815; J7620; J8499; S5561